=== PATIENT | male | born 1960 | race Caucasian/White ===

== ENCOUNTER 2019-11-12 11:19 | Inpatient (IN) | payer OTHER, SELFPAY ==
--- OUTSIDE RECORDS SUMMARY | 2019-11-12 11:21 | XMS REPORT ---
:1960 Author Organization [facility] t Address [address] [place] [address] [address]. [address] [place] [address] Care Team Providers Name Role Phone Unavailable Unavailable Unavailable Problems This patient has no known problems. Allergies, Adverse Reactions, Alerts This patient has no known allergies or adverse reactions. Medications This patient has no known medications.
[2019-11-12] MEDS ORDERED: HYDROCODONE/APAP 5/325 MG TAB ONE (13:34)
--- NOTE | 2019-11-12 13:56 | ER ---
Nurse's Notes [facility] Name: Clifton Sahu Jr Age: 59 yrs Sex: Male : 1960 Arrival Date: 11/12/2019 Time: 11:21 Bed 23 Private MD: Diagnosis: Cellulitis of left lower limb;Diabetes mellitus due to underlying condition with foot ulcer Presentation: 11/11 12:09 Chief complaint: Patient states: Left 4th toe infection x 1 week with severe pain. jl7 Coronavirus screen: Proceed with normal triage. Patient denies a cough. Patient denies shortness of breath or difficulty breathing. Patient denies measured and/or subjective temperature greater than 100.4F prior to today's visit. Patient denies travel on a cruise ship or to a country the [facility] currently lists as an affected area. Patient denies contact with known and/or suspected case of COVID-19. Ebola Screen: No symptoms or risks identified at this time. Initial Sepsis Screen: Does the patient meet any 2 criteria? HR > 90 bpm. Does the patient have a suspected source of infection? Yes: Skin breakdown/wound. Risk Assessment: Do you want to hurt yourself or someone else? Patient reports no desire to harm self or others. Onset of symptoms was November 06, 2019. Care prior to arrival: None. 12:09 Method Of Arrival: Ambulatory [facility] 12:09 Acuity: MOLLY 3 jl7 Triage Assessment: 12:13 General: Appears in no apparent distress. uncomfortable, Behavior is calm, cooperative, jl7 appropriate for age. Pain: Complains of pain in left foot Pain currently is 10 out of 10 on a pain scale. Neuro: Level of Consciousness is awake, alert, obeys commands, Oriented to person, place, time, situation. Cardiovascular: Patient's skin is warm and dry. Respiratory: Airway is patent Respiratory effort is even, unlabored, Respiratory pattern is regular, symmetrical. Derm: Skin is pink, warm \T\ dry. Wound noted left fourth toe Other: Toe is reddened and inflammed. Historical: - Allergies: 12:13 No Known Allergies; jl7 - Home Meds: 12:13 Metformin Oral [Active]; Lisinopril Oral [Active]; jl7 - PMHx: 12:13 Diabetes - NIDDM; Hypertension; jl7 - PSHx: 12:13 None; jl7 - Immunization history:: Adult Immunizations up to date. - Social history:: Smoking status: Patient reports the use of cigarette tobacco products, smokes one-half pack cigarettes per day. Screenin:10 Abuse screen: Denies threats or abuse. Denies injuries from another. Nutritional ls4 screening: No deficits noted. Fall Risk None identified. 13:10 Tuberculosis screening: No symptoms or risk factors identified. ls4 Assessment: 14:00 Reassessment: Patient appears in no apparent distress at this time. Patient and/or ls4 family updated on plan of care and expected duration. Pain level reassessed. Patient is alert, oriented x 3, equal unlabored respirations, skin warm/dry/pink. 14:05 General: Appears uncomfortable, obese, unkempt. ls4 14:05 Neuro: No deficits noted. Cardiovascular: No deficits noted. Reports. Respiratory: No ls4 deficits noted. Reports. GI: No deficits noted. No signs and/or symptoms were reported involving the gastrointestinal system. : No deficits noted. No signs and/or symptoms were reported regarding the genitourinary system. Derm: Wound noted left foot, left lateral ankle and lateral aspect of left foot Wound is RED, EDEMATOUS AND FOURTH TOE WITH OPEN ESCHAR ROOM. Musculoskeletal: Circulation, motion, and sensation intact. Capillary refill < 3 seconds, Range of motion: Swelling present in left foot and left fourth toe. 15:32 Reassessment: ATTEMPTED TO CALL REPORT. STATED THAT TJ WOULD CALL ME BACK. ls4 Vital Signs: 12:09 BP 154 / 91; Pulse 117; Resp 19; Temp 98.7(O); Pulse Ox 97% ; Weight 122.47 kg; Height jl7 5 ft. 11 in. (180.34 cm); Pain 10/10; 15:27 BP 125 / 82; Pulse 108; Resp 20; Temp 98.6(O); Pulse Ox 100% ; lt1 16:30 BP 126 / 77; Pulse 99; Resp 14; Pulse Ox 99% on R/A; Pain 3/10; ls4 12:09 Body Mass Index 37.66 (122.47 kg, 180.34 cm) jl7 ED Course: 11:21 Patient arrived in ED. ag5 12:12 Triage completed. jl7 12:13 Arm band placed on right wrist. Patient placed in waiting room, Patient notified of jl7 wait time. 13:20 Haw[facility]-C [facility] snw 13:20 Alvarez Dunn MD is Attending Physician. snw 13:26 Jenni Mcdaniels, GRETCHEN is Primary Nurse. ls4 13:55 Pepito Eddy DO is Hospitalizing Provider. snw 14:00 Patient has correct armband on for positive identification. Placed in gown. Bed in low ls4 position. Call light in reach. Side rails up X 1. 14:23 Foot Left 3 View XRAY In Process Unspecified. EDMS 14:23 Chest Single View XRAY In Process Unspecified. EDMS 14:42 US Extremity Venous Unilateral Ltd In Process Unspecified. EDMS 15:08 No provider procedures requiring assistance completed. Inserted saline lock: 18 gauge ls4 in right antecubital area, using aseptic technique. Blood collected. 15:55 Patient admitted, IV remains in place. ls4 Administered Medications: 13:28 Drug: Winnett 5 mg-325 mg 1 tabs Route: PO; ls4 15:53 Follow up: Response: No adverse reaction; Marked relief of symptoms ls4 14:52 Drug: Cefepime 1 grams Route: IVPB; Rate: 200 ml/hr; Infused Over: 30 mins; Site: right ls4 antecubital; 15:27 Follow up: Response: No adverse reaction; IV Status: Completed infusion; IV Intake: [id number] 15:06 Drug: NS 0.9% 1000 ml Route: IV; Rate: 125 ml/hr; Site: right antecubital; ls4 15:28 Follow up: IV Status: Infusion continued upon admission ls4 15:06 Drug: vancoMYCIN 1 grams Route: IVPB; Infused Over: 2 hrs; Site: right antecubital; ls4 15:28 Follow up: IV Status: Infusion continued upon admission; IV Intake: 275ml ls4 15:57 Follow up: Response: No adverse reaction; IV Status: Infusion continued upon admission; ls4 IV Intake: 250ml Intake: 15:27 IV: 10ml; Total: 10ml. ls4 15:57 IV: 250ml; Total: 260ml. ls4 Outcome: 13:56 Decision to Hospitalize by Provider. snw 15:54 Admitted to Med/surg accompanied by tech, via stretcher, room 210, Report called to TRUNG ls4 15:54 Condition: good 15:54 Instructed on the need for admit. 16:45 Patient left the ED. iw Signatures: Dispatcher [employer] EDHawa Garvin, NUCLEAR POWERPLANT SUPERVISOR-C NUCLEAR POWERPLANT SUPERVISOR-Csnw Sheeba Mariscal, RN RN iw Amy Emery RN RN jl7 Jenni Mcdaniels RN RN ls4 Bruce Montez 5 Yarely Lomax 1 Corrections: (The following items were deleted from the chart) 15:27 15:26 IV Status: Completed infusion; IV Intake: 10ml ls4 ls4 15:29 15:27 IV Status: Completed infusion; IV Intake: 275ml ls4 ls4 18:23 15:28 IV Status: Infusion continued upon admission; IV Intake: 275ml ls4 ls4
--- NOTE | 2019-11-12 13:57 | EDPHYS ---
Physician Documentation [facility] Name: Clifton Sahu Jr Age: 59 yrs Sex: Male : 1960 Arrival Date: 11/12/2019 Time: 11:21 Bed 23 Private MD: ED Physician Alvarez Dunn HPI: 11/11 14:04 This 59 yrs old Male presents to ER via Ambulatory with complaints of Toe snw Pain, Wound Infection. 14:04 Onset: The symptoms/episode began/occurred 1 week(s) ago, and became worse and became snw persistent. Associated signs and symptoms: Pertinent negatives: fever. 14:05 The patient presents with pain, that is acute, swelling, tenderness. The complaints snw affect the left foot. Severity of symptoms: At their worst the symptoms were moderate, severe. The patient has not experienced similar symptoms in the past. The patient has not recently seen a physician. Hx of HTN, High cholesterol, NIDDM. Historical: - Allergies: 12:13 No Known Allergies; jl7 - Home Meds: 12:13 Metformin Oral [Active]; Lisinopril Oral [Active]; jl7 - PMHx: 12:13 Diabetes - NIDDM; Hypertension; jl7 - PSHx: 12:13 None; jl7 - Immunization history:: Adult Immunizations up to date. - Social history:: Smoking status: Patient reports the use of cigarette tobacco products, smokes one-half pack cigarettes per day. ROS: 13:59 Constitutional: Negative for fever, chills, and weight loss, Eyes: Negative for injury, snw pain, redness, and discharge, ENT: Negative for injury, pain, and discharge, Neck: Negative for injury, pain, and swelling, Cardiovascular: Negative for chest pain, palpitations, and edema, Respiratory: Negative for shortness of breath, cough, wheezing, and pleuritic chest pain, Abdomen/GI: Negative for abdominal pain, nausea, vomiting, diarrhea, and constipation, Back: Negative for injury and pain, : Negative for injury, bleeding, discharge, and swelling, Neuro: Negative for headache, weakness, numbness, tingling, and seizure. 13:59 MS/extremity: Positive for erythema, pain, warmth, of the left fourth toe and left foot. 13:59 Skin: Positive for cellulitis, erythema, swelling. Exam: 13:51 Constitutional: This is a well developed, well nourished patient who is awake, alert, snw and in no acute distress. Eyes: Pupils equal round and reactive to light, extra-ocular motions intact. Lids and lashes normal. Conjunctiva and sclera are non-icteric and not injected. Cornea within normal limits. Periorbital areas with no swelling, redness, or edema. 13:51 ENT: Nares patent. No nasal discharge, no septal abnormalities noted. Tympanic membranes are normal and external auditory canals are clear. Oropharynx with no redness, swelling, or masses, exudates, or evidence of obstruction, uvula midline. Mucous membranes moist. Neck: Trachea midline, no thyromegaly or masses palpated, and no cervical lymphadenopathy. Supple, full range of motion without nuchal rigidity, or vertebral point tenderness. No Meningismus. Chest/axilla: Normal chest wall appearance and motion. Nontender with no deformity. No lesions are appreciated. 13:51 Abdomen/GI: Soft, non-tender, with normal bowel sounds. No distension or tympany. No guarding or rebound. No evidence of tenderness throughout. Back: No spinal tenderness. No costovertebral tenderness. Full range of motion. Neuro: Awake and alert, GCS 15, oriented to person, place, time, and situation. Cranial nerves II-XII grossly intact. Motor strength 5/5 in all extremities. Sensory grossly intact. Cerebellar exam normal. Normal gait. Psych: Awake, alert, with orientation to person, place and time. Behavior, mood, and affect are within normal limits. 13:51 Head/face: Noted is telangiectasia to cheeks. 13:51 Cardiovascular: Rate: tachycardic, Rhythm: regular. 13:51 Respiratory: the patient does not display signs of respiratory distress, Respirations: normal, Breath sounds: bronchial sounds, + upper airway congestion. smoker. 13:51 Skin: Appearance: normal except for affected area, cellulitis, that is severe, well demarcated, on the left foot and left fourth toe up to mid calf, 4th dorsal toe with ulceration with increased erythema and some skin peeling. Vital Signs: 12:09 BP 154 / 91; Pulse 117; Resp 19; Temp 98.7(O); Pulse Ox 97% ; Weight 122.47 kg; Height jl7 5 ft. 11 in. (180.34 cm); Pain 10/10; 15:27 BP 125 / 82; Pulse 108; Resp 20; Temp 98.6(O); Pulse Ox 100% ; lt1 16:30 BP 126 / 77; Pulse 99; Resp 14; Pulse Ox 99% on R/A; Pain 3/10; ls4 12:09 Body Mass Index 37.66 (122.47 kg, 180.34 cm) jl7 MDM: 13:24 Patient medically screened. snw 13:56 Data reviewed: vital signs, nurses notes. Data interpreted: Pulse oximetry: on room air snw is 97 %. Interpretation: normal. Counseling: I had a detailed discussion with the patient and/or guardian regarding: the historical points, exam findings, and any diagnostic results supporting the discharge/admit diagnosis, lab results, radiology results, the need for further work-up and treatment in the hospital. Physician consultation: Petey Michel MD was called at 13:57, was contacted at 13:57, regarding consult, in the emergency department to see patient at 13:57. 14:09 Physician consultation: Pepito Eddy DO was called at 14:10, regarding admission, to snw the medical/surgical unit. in the emergency department to see patient at 14:10. ED course: called Wound care for consult. Solution for wound is Dikins. 11/11 13:50 Order name: CBC with Diff; Complete Time: 16:23 snw 11/11 13:50 Order name: Chem 7; Complete Time: 15:01 snw 11/11 13:50 Order name: Troponin (emerg Dept Use Only); Complete Time: 15:01 snw 11/11 13:50 Order name: Blood Culture Adult (2) snw 11/11 13:50 Order name: Wound Culture snw 11/11 16:21 Order name: CBC Smear Scan; Complete Time: 16:23 EDMS 11/11 13:23 Order name: Foot Left 3 View XRAY; Complete Time: 14:36 snw 11/11 13:50 Order name: EKG; Complete Time: 13:50 snw 11/11 13:50 Order name: Chest Single View XRAY; Complete Time: 14:39 snw 11/11 13:58 Order name: US Extremity Venous Unilateral Ltd; Complete Time: 15:11 snw 11/11 13:50 Order name: Wound Care: Hibiclens and then Dagon's solution/wrap toe/ ice pack snw alternation Q 15min; Complete Time: 14:40 Administered Medications: 13:28 Drug: Durham 5 mg-325 mg 1 tabs Route: PO; ls4 15:53 Follow up: Response: No adverse reaction; Marked relief of symptoms ls4 14:52 Drug: Cefepime 1 grams Route: IVPB; Rate: 200 ml/hr; Infused Over: 30 mins; Site: right ls4 antecubital; 15:27 Follow up: Response: No adverse reaction; IV Status: Completed infusion; IV Intake: [id number] 15:06 Drug: NS 0.9% 1000 ml Route: IV; Rate: 125 ml/hr; Site: right antecubital; ls4 15:28 Follow up: IV Status: Infusion continued upon admission ls4 15:06 Drug: vancoMYCIN 1 grams Route: IVPB; Infused Over: 2 hrs; Site: right antecubital; ls4 15:28 Follow up: IV Status: Infusion continued upon admission; IV Intake: 275ml ls4 15:57 Follow up: Response: No adverse reaction; IV Status: Infusion continued upon admission; ls4 IV Intake: 250ml Disposition: 17:15 Co-signature as Attending Physician, Alvarez Dunn MD I agree with the assessment and kdr plan of care. Disposition: 11/12/19 13:56 Hospitalization ordered by Pepito Eddy for Inpatient Admission. Preliminary diagnosis are Cellulitis of left lower limb, Diabetes mellitus due to underlying condition with foot ulcer. - Bed requested for Telemetry/MedSurg (Inpatient). - Status is Inpatient Admission. iw - Condition is Stable. - Problem is new. - Symptoms are unchanged. Signatures: Dispatcher [employer] EDMS Alvarez Dunn MD MD kdr Hawa Rios, BOND UNDERWRITER-C BOND UNDERWRITER-Csnw Sheeba Mariscal RN RN iw Edilma Finley RN RN tl1 Amy Emery RN RN jl7 Jenni Mcdaniels RN RN ls4 Corrections: (The following items were deleted from the chart) 14:54 13:56 Hospitalization Ordered by Pepito Eddy DO for Inpatient Admission. Preliminary tl1 diagnosis is Cellulitis of left lower limb; Diabetes mellitus due to underlying condition with foot ulcer. Bed requested for Telemetry/MedSurg (Inpatient). Status is Inpatient Admission. Condition is Stable. Problem is new. Symptoms are unchanged. [facility] 16:45 14:54 11/12/2019 13:56 Hospitalization Ordered by Pepito Eddy DO for Inpatient iw Admission. Preliminary diagnosis is Cellulitis of left lower limb; Diabetes mellitus due to underlying condition with foot ulcer. Bed requested for Telemetry/MedSurg (Inpatient). Status is Inpatient Admission. Condition is Stable. Problem is new. Symptoms are unchanged. tl1
[2019-11-12 14:26] LABS: Absolute Lymphocytes (CBC) 0.9 K/uL (0.7-4.9); Basophils % 0.3 % (0-1.3); Hematocrit 44.9 % (39.6-49.0); MPV 8.8 fL (7.6-11.3); RBC Red Blood Cell Count 4.78 M/uL (4.33-5.43)
--- NOTE | 2019-11-12 14:31 | RAD REPORT ---
EXAM DESCRIPTION: RAD - Chest Single View - 11/12/2019 2:23 pm CLINICAL HISTORY: preop Chest pain. COMPARISON: No comparisons FINDINGS: Portable technique limits examination quality. The lungs are grossly clear. The heart is mildly enlarged in size. No displaced fractures.
--- NOTE | 2019-11-12 14:31 | RAD REPORT ---
EXAM DESCRIPTION: RAD - Foot Left 3 View - 11/12/2019 2:23 pm CLINICAL HISTORY: PAIN COMPARISON: No comparisons FINDINGS: There is significant soft tissue swelling along the dorsum of the forefoot. Subtle irregul arity of very distal aspect of the distal phalanx of the fourth toe could represent early osteomyelit is. No fracture seen.
[2019-11-12] MEDS ORDERED: VANCOMYCIN 1 GM/VIAL ONE (14:52)
[2019-11-12] MEDS ORDERED: NA CHLORIDE 0.9% 250 ML ONE (14:52)
[2019-11-12 14:59] LABS: BUN Blood Urea Nitrogen 16 mg/dL (7-18); Bicarbonate 26 mmol/L (21-32); Glucose Level 281 mg/dL (74-106); Potassium 4.3 mmol/L (3.5-5.1); Sodium Level 132 mmol/L (136-145); Troponin (Emerg Dept Use Only) 0.05 ng/mL (0.0-0.045)
[2019-11-12] MEDS ORDERED: NA CHLORIDE 0.9% 1,000 ML ONE (14:59)
--- NOTE | 2019-11-12 15:04 | RAD REPORT ---
EXAM DESCRIPTION: US - Extremity Venous Uni Ltd - 11/12/2019 2:39 pm CLINICAL HISTORY: Pain;Swelling Leg swelling and edema. COMPARISON: No comparisons FINDINGS: Left lower extremity venous system was interrogated with Doppler technique. Normal flow, c ompressibility and augmentation was noted. There is no DVT present. IMPRESSION: No evidence of left lower extremity deep venous thrombosis.
[2019-11-12] MEDS ORDERED: CEFEPIME/SWI 1gm 10 ML IVP ONE (15:30)
--- NOTE | 2019-11-12 15:56 | P.HP ---
Certification for Inpatient Patient admitted to: Inpatient With expected LOS: >2 Midnights Patient will require the following post-hospital care: None Practitioner: I am a practitioner with admitting privileges, knowledge of patient current condition, hospital course, and medical plan of care. Services: Services provided to patient in accordance with Admission requirements found in Title 42 Section 412.3 of the Code of Federal Regulations Patient History Date of Service: 11/12/19 Primary Care Provider: none Reason for admission: Left foot pain History of Present Illness: 59-year-old male with history of hypertension, hyperlipidemia, diabetes and CAD. Patient presented with left foot pain. Patient reports left foot pain over the past week. Erythema, swelling, and ulcer noted. He came to the ER for further evaluation. Patient denies any fever, chills. Patient denies any chest pain, shortness of breath. Patient with history of cellulitis in the past to the same foot. In the ER patient was evaluated. White count 13.4. Chest x-ray unremarkable. Venous Doppler negative. X-ray of foot shows significant soft swelling to the dorsum of the forefoot. Irregularity noted to the distal phalanx of the 4th toe likely representing early osteomyelitis. Patient admitted for further evaluation and treatment. When I saw the patient ER, he did not appear septic. Patient stable at this time. Antibiotics have been initiated. Patient seen by surgery. Home medications list reviewed: Yes - Past Medical/Surgical History Diabetic: Yes -: Diabetes mellitus type 2 -: Hypertension -: CAD -: Diabetic neuropathy -: Hyperlipidemia Past Surgical History: Unable to obtain Psychosocial/ Personal History: Patient lives at home - Family History Family History: Reviewed- Non-Contributory - Social History Smoking Status: Heavy Tobacco smoker (>10 cigarettes/day) Counseled patient to stop smoking for: less than 10 minutes Smoking therapy provided: Yes Patient receptive to therapy: Yes Alcohol use: No CD- Drugs: No Caffeine use: Yes Place of Residence: Home Review of Systems General: As per HPI Eyes: Unremarkable ENT: Unremarkable Respiratory: Unremarkable Cardiovascular: Unremarkable Gastrointestinal: Unremarkable Genitourinary: Unremarkable Musculoskeletal: As per HPI Integumentary: As per HPI Neurological: Unremarkable Lymphatics: Unremarkable Physical Examination - Physical Exam General: Alert, In no apparent distress, Oriented x3, Cooperative, Disheveled HEENT: Atraumatic, Normocephalic, Mucous membr. moist/pink Neck: Supple Respiratory: Clear to auscultation bilaterally, Normal air movement Cardiovascular: Normal pulses, Regular rate/rhythm Gastrointestinal: Normal bowel sounds, Soft and benign, Non-distended, No tende rness, No masses, No rebound, No guarding Musculoskeletal: Other (Left foot cellulitis with noted erythema, swelling and pain. Ulcer to the left 4th toe distally.) Neurological: Normal speech, Normal strength at 5/5 x4 extr, Normal tone, Normal affect - Studies Laboratory Data (last 24 hrs) 11/12/19 14:13: Sodium 132 L, Potassium 4.3, BUN 16, Creatinine 0.79, Glucose 281 H 11/12/19 14:13: WBC 13.4 H, Hgb 15.2, Hct 44.9, Plt Count 225 Assessment and Plan - Plan Impression: Left foot cellulitis with distal 4th ulcer suspect osteomyelitis Diabetes mellitus type 2 Hypertension Hyperlipidemia Diabetic neuropathy CAD Tobacco abuse Plan: Left foot cellulitis with distal 4th ulcer suspect osteomyelitis: Patient will be admitted for further evaluation and treatment. Will start IV vancomycin and cefepime. Surgery has seen the patient. Will keep the patient NPO after midnight as the patient may require debridement. Suspect osteomyelitis. Will consult Infectious Disease after surgical evaluation. Patient may require long- term IV antibiotic therapy. Will reassess tomorrow. Will provide medication for pain. Will provide DVT prophylaxis. Will evaluate for underlying peripheral vascular disease. Diabetes mellitus type 2: Will provide Accu-Cheks. Will continue with sliding scale. Will need to check A1c. Hypertension: Will need to obtain and restart home medication. Hyperlipidemia: Will need to obtain and restart home medication. Diabetic neuropathy: Will need to obtain and restart home medication. CAD: Will need to obtain and restart home medication. Tobacco abuse: Will provide nicotine patch Discharge Plan: Home Plan to discharge in: Greater than 2 days - Advance Directives Does patient have a Living Will: No Does patient have a Durable POA for Healthcare: No - Code Status/Comfort Care Code Status Assessed: Yes (Patient is full code) Time Spent Managing Pts Care (In Minutes): 55
[2019-11-12 16:21] LABS: Blood Morphology Comment NOT SEEN (NOT SEEN); Platelet Estimate ADEQ; Urine White Blood Cell Casts OK
[2019-11-12] MEDS ORDERED: ONDANSETRON 4 MG/2 ML VIAL IV PRN (16:54)
[2019-11-12] MEDS ORDERED: ACETAMINOPHEN 500 MG TAB PO PRN (16:54)
[2019-11-12] MEDS ORDERED: ALBUTEROL INHALER 60 PUFF/8 GM IH PRN (16:54)
[2019-11-12 17:06] VITALS: BMI 37.6
[2019-11-12] MEDS: INSULIN -REGULAR HUMAN 50 UNIT/0.5 ML ML SQ SCH ×2 (17:40→21:23)
[2019-11-12] MEDS: TRAMADOL HCL 50 MG TAB PO PRN (17:41)
[2019-11-12] MEDS: ENOXAPARIN 40 MG/0.4 ML SQ SCH (17:41)
[2019-11-12] MEDS: NICOTINE 21 MG/PAT TD SCH (17:41)
[2019-11-12] MEDS: VANCOMYCIN 2 GM in NA CHLORIDE 0.9% 500 ML IVPB SCH (18:18)
--- NOTE | 2019-11-12 19:34 | CON ---
Date of Consultation: 11/12/2019 Reason For Consultation: Foot wound. Brief History Of Present Illness: Patient is a 59-year-old male who states he has diabetes and hyper tension, who kicked an object a few days ago and noted redness of his left foot with swelling. He no kadi that the redness continued to spread beginning approximately the second toe of his left foot and went up to his mid foot at that point, associated with some tenderness, but he does state he has neur opathy and has decreased sensation in this area. However, he noted that the area was getting more sw ollen and as such, he came to the emergency room with the above-stated complaints. He has no primary care doctor and is noncompliant with most of his medications with respect to blood sugar control bec ause he states he is uninsured and as such, cannot afford some of his medications. Past Medical History: Significant for diabetes, hypertension. Allergies: NO KNOWN DRUG ALLERGIES. Home Medications: Include metformin and lisinopril. Past Surgical History: He denies any surgeries in the past. Social History: He smokes cigarettes. He drinks alcohol. He denies recreational drug use. Physical Examination: General: At the time of my examination, he is awake, alert, oriented. Psychiatric: He is appropriate conversive. HEENT: Normocephalic. His sclerae are anicteric. His mucous membranes are moist. His oropharynx i s clear. Chest: Normal expansion excursion. Extremities: Focused examination of the left lower extremity, he has swelling and tenderness of the second toe with a small wound with purulence on the distal phalanx near the nail bed, proximal to the nail bed. The swelling and cellulitis extends on the dorsal foot up to the mid foot area, predomina ntly it is swollen. There are no drainable collections evident. Laboratory Data: He had laboratory examination, which reveals a white blood count 13.4, hemoglobin i s 15.2, hematocrit of 44.9, platelet count is 225, neutrophils are 86%. His sodium 132, potassium 4. 3, chloride 100, carbon dioxide 26, BUN 16, creatinine 0.7, his glucose is 281. His rapid troponin l ess than 0.05. He had imaging performed which included a foot x-ray, which was officially read as si gnificant soft tissue swelling along the dorsal forefoot. Subtle irregularity of the very distal asp ect of the distal phalanx of the second toe could represent early osteomyelitis. No fracture or disl ocation seen. Assessment And Plan: This is a 59-year-old male who comes in with a soft tissue infection, celluliti s, possibly early osteomyelitis of the left foot second toe. 1.IV fluid hydration. 2.Antibiotic coverage. 3.Serial exams and local wound care to see if we can treat this with nonoperative management, mari harris, nonoperative management fails, I have explained he would likely need amputation of this affected t oe and I explained the risks, benefits, alternatives of the above stated plan. The patient agrees to proceed as indicated. TEE/JOANA Voice ID: [id number] Report ID: [id number]
[2019-11-12] MEDS: ATORVASTATIN 40 MG TAB PO SCH (19:54)
[2019-11-12] MEDS: HYDROCODONE/APAP 7.5/325 MG TAB PO PRN (19:54)
[2019-11-12] MEDS: CEFEPIME/SWI 1gm 1 ML IVP SCH (20:06)
[2019-11-12] MEDS: DULERA 100/5 (MOMETASONE/FORMOTEROL) INHALER IH SCH (21:00)
[2019-11-12] MEDS ORDERED: CEFEPIME 1 GM/VIAL IV SCH (21:00)
[2019-11-12 21:30] LABS: Urine Appearance CLEAR; Urine Bilirubin NEGATIVE (NEG); Urine Blood NEGATIVE (NEG); Urine Color DK YELLOW; Urine Glucose 3+ (NEG); Urine Protein 1+ (NEG); Urine Specific Gravity >=1.030 (1.005-1.030); Urine pH 5.5 (5.0-7.0)
[2019-11-12 21:38] LABS: Urine Microscopic Reflex ORDER UMIC
[2019-11-12 21:46] LABS: Urine Bacteria <20 /HPF (NONE SEEN); Urine Culture Reflex Order NOT NEEDED; Urine Mucus 1+ /HPF (NONE SEEN); Urine RBC <5 /HPF (NONE SEEN)
[2019-11-13] MEDS: VANCOMYCIN 2 GM in NA CHLORIDE 0.9% 500 ML IVPB SCH ×2 (05:13→17:39)
[2019-11-13 05:18] LABS: Absolute Lymphocytes (CBC) 0.7 K/uL (0.7-4.9); Basophils % 0.7 % (0-1.3); Hematocrit 43.2 % (39.6-49.0); MPV 9.1 fL (7.6-11.3); RBC Red Blood Cell Count 4.49 M/uL (4.33-5.43)
[2019-11-13 05:41] LABS: BUN Blood Urea Nitrogen 14 mg/dL (7-18); Bicarbonate 24 mmol/L (21-32); Glucose Level 269 mg/dL (74-106); HDL Cholesterol 30 mg/dL (40-60); LDL Cholesterol, Calculated 108 (<130); Magnesium 1.8 mg/dL (1.8-2.4); Potassium 4.4 mmol/L (3.5-5.1); Sodium Level 132 mmol/L (136-145); Thyroid Stimulating Hormone 0.872 uIU/mL (0.360-3.740)
[2019-11-13] MEDS ORDERED: MAGNESIUM SULFATE 1 gm IVPB 1 GM/100 ML BAG IV ONE (05:47)
[2019-11-13] MEDS: ENOXAPARIN 40 MG/0.4 ML SQ SCH (08:35)
[2019-11-13] MEDS: NICOTINE 21 MG/PAT TD SCH (08:35)
[2019-11-13] MEDS: ASPIRIN EC 81 MG TAB PO SCH (08:35)
[2019-11-13] MEDS: CEFEPIME/SWI 1gm 1 ML IVP SCH ×2 (08:35→22:31)
[2019-11-13] MEDS: INSULIN -REGULAR HUMAN 50 UNIT/0.5 ML ML SQ SCH ×4 (08:44→22:32)
--- NOTE | 2019-11-13 08:51 | RAD REPORT ---
EXAM DESCRIPTION: US - Upper Lower [facility] - 11/13/2019 8:34 am CLINICAL HISTORY: Leg pain/peripheral vascular disease, foot wound COMPARISON: None FINDINGS: Waveforms of the right common femoral, right superficial femoral artery biphasic Right popliteal, right dorsalis pedis, right posterior tibial arterial waveform monophasic Waveforms of the left common femoral, left superficial femoral artery is biphasic Left popliteal, left dorsalis pedis, left posterior tibial arterial waveforms monophasic Right ankle brachial index 0.75, left ankle brachial index 0.74 Right toe index 0.8, left toe index 0.3 IMPRESSION: High-grade stenosis involving the proximal/mid arteries lower extremities bilaterally no t noted Mildly diminished ankle-brachial indices Moderate distal disease involving the arteries bilaterally left greater than right
[2019-11-13] MEDS: DULERA 100/5 (MOMETASONE/FORMOTEROL) INHALER IH SCH ×2 (09:00→21:00)
--- NOTE | 2019-11-13 11:05 | P.PN ---
Subjective Date of Service: 11/13/19 Primary Care Provider: none Chief Complaint: Left foot pain Subjective: No new changes, Doing well Patient reports pain persist to left foot. Denies any new or worsening symptoms. <Brandon Tubbs - Last Filed: 11/13/19 11:09> Date of Service: 11/13/19 Subjective: Other (patient seen and evaluated with nurse practitioner.) <Pepito Eddy - Last Filed: 11/13/19 17:15> Review of Systems General: Unremarkable Eyes: Unremarkable ENT: Unremarkable Respiratory: Unremarkable Cardiovascular: Unremarkable Gastrointestinal: Unremarkable Genitourinary: Unremarkable Musculoskeletal: Unremarkable Integumentary: Rash (Cellulitis left lower extremity.) Neurological: Unremarkable Lymphatics: Unremarkable <Brandon Tubbs Last Filed: 11/13/19 11:09> Physical Examination - Vital Signs Temperature: 98.8 F Blood Pressure: 136/84 Pulse: 109 Respirations: 28 Pulse Ox (%): 95 - Physical Exam General: Alert, In no apparent distress HEENT: Atraumatic, Normocephalic Neck: Supple Respiratory: Clear to auscultation bilaterally, Normal air movement Cardiovascular: Normal S1 S2 Capillary refill: <2 Seconds Gastrointestinal: Normal bowel sounds Integumentary: Erythema, Warmth (Left lower extremity) Neurological: Normal speech - Studies Laboratory Data (last 24 hrs) 11/12/19 14:13: Sodium 132 L, Potassium 4.3, BUN 16, Creatinine 0.79, Glucose 281 H 11/12/19 14:13: WBC 13.4 H, Hgb 15.2, Hct 44.9, Plt Count 225 <Brandon Tubbs - Last Filed: 11/13/19 11:09> - Physical Exam Other Physical/Emotional Findings: Patient examined with nurse practitioner. Agree with findings. - Studies Microbiology Data (last 24 hrs): 11/12/19 14:21 Wound - Left Toe Gram Stain - Final <Pepito Eddy - Last Filed: 11/13/19 17:15> Assessment & Plan Discharge Plan: Home Plan to discharge in: 24 Hours Physician Review Additional Text: Impression: Left foot cellulitis with distal 4th ulcer suspect osteomyelitis Diabetes mellitus type 2 Hypertension Hyperlipidemia Diabetic neuropathy CAD Tobacco abuse Plan: Left foot cellulitis with distal 4th ulcer suspect osteomyelitis: X-ray of left foot shows possible osteomyelitis. Will obtain MRI to help determine if osteomyelitis is definitively present in the left lower extremity. Surgery consulted on the case and saw the patient, would like to try antibiotics in attempt to save the toes. If MRI shows osteomyelitis patient will require long- term IV antibiotic therapy with likely PICC line placement. The patient does not have insurance resource at this time and will need to have IV therapy arrange through the hospital. Case discussed extensively with surgery, will speak with them again after the results of the MRI are obtained. Anticipate patient to be discharged tomorrow once it is determined if the patient does indeed have osteomyelitis. Diabetes mellitus type 2: Will continue to provide Accu-Cheks. Will continue with sliding scale. Patient A1c is 10. Will review and adjust home medications as appropriate. Hypertension: Will obtain and restart Home medications Hyperlipidemia: Will obtain and restart home medication. Diabetic neuropathy: Will obtain and restart home medication. CAD: Will obtain and restart home medication. Tobacco abuse: Will provide nicotine patch Time Spent Managing Pts Care (In Minutes): 55 <Brandon Tubbs - Last Filed: 11/13/19 11:09> Discharge Plan: Home Plan to discharge in: Greater than 2 days Physician Review Additional Text: Patient seen, examined with nurse practitioner. Agree with plan of care. Case discussed with surgery. Await MRI findings. Surgery recommends cardiology evaluation for peripheral vascular disease. Will consult cardiology for evaluation. Patient may require long-term IV antibiotic therapy verses oral. Will also consult Infectious Disease. Will review and restart home medication. Await recommendations by Cardiology. <Pepito Eddy - Last Filed: 11/13/19 17:15>
--- NOTE | 2019-11-13 13:01 | EKG ---
Test Date: 2019-11-12 Test Time: 16:32:48 [employer]: ELOISAT MEASUREMENT RESULTS: Intervals: Rate: 106 HI: 122 QRSD: 84 QT: 340 QTc: 451 [place]: P: 65 HI: 122 QRS: 57 T: 105 INTERPRETIVE STATEMENTS: Sinus tachycardia Possible Left atrial enlargement Low voltage QRS Septal infarct, age undetermined Abnormal ECG No previous ECG available for comparison Electronically Signed On 11-13-19 12:58:29 CDT by Rufus Redd
--- NOTE | 2019-11-13 13:40 | ECHO ---
HEIGHT: 5 ft 11 in WEIGHT: 270 lb 0 oz DATE OF STUDY: 11/13/[address]: Pepito Eddy DO 2-DIMENSIONAL: YES M.MODE: YES DOPPLER: YES COLOR FLOW: YES TDS: YES PORTABLE: NO DEFINITY: NO BUBBLE STUDY: NO DIAGNOSIS: CORONARY ARTERY DISEASE CARDIAC HISTORY: CATHERIZATION: NO SURGERY: NO PROSTHETIC VALVE: NO PACEMAKER: NO MEASUREMENTS (cm) DIASTOLIC (NORMALS) SYSTOLIC (NORMALS) IVSd 1.2 (0.6-1.2) LA Diam 4.1 (1.9-4.0) LVEF 44% LVIDd 4.6 (3.5-5.7) LVIDs 3.6 (2.0-3.5) %FS 22% LVPWd 1.2 (0.6-1.2) Ao Diam 2.7 (2.0-3.7) 2 DIMENSIONAL ASSESSMENT: RIGHT ATRIUM: NORMAL LEFT ATRIUM: NORMAL RIGHT VENTRICLE: NORMAL LEFT VENTRICLE: NORMAL TRICUSPID VALVE: NORMAL MITRAL VALVE: NORMAL PULMONIC VALVE: NORMAL AORTIC VALVE: NORMAL PERICARDIAL EFFUSION: NONE AORTIC ROOT: NORMAL LEFT VENTRICULAR WALL MOTION: MILD GLOBAL HYPOKINESIS. DOPPLER/COLOR FLOW: NORMAL COMMENTS: MILD GLOBAL HYPOKINESIS. LEFT VENTRICULAR EJECTION FRACTION 44%. NO EFFUSION. TECHNOLOGIST: Magalie FONTANA
--- NOTE | 2019-11-13 14:58 | P.CNS ---
Date of Consult: 11/13/19 Subjective: Patient is a 59-year-old male who presents with left foot pain. Over the past week patient noticed erythema, swelling, and ulcer. Patient reports new pair of hiking shoes. X-ray of left foot shows significant soft tissue swelling to the dorsum of the forefoot and possible osteomyelitis to the distal phalanx of the 4th toe which I have been consulted for. PMH/Surgical: Diabetes mellitus type 2, hypertension, CAD, diabetic neuropathy, hyperlipidemia Family history: Noncontributory Social history: Current every day smoker half PPD x 40 years. Stopped drinking alcohol July 2019 Allergies: NKDA Active Medications Acetaminophen (Tylenol -Extra Strength) 500 mg PO Q4HP PRN PRN Reason: TEMP > 101' F Stop: 12/12/19 16:55 Hydrocodone Bitart/Acetaminophen ([place] 7.5/325 Mg) 1 tab PO Q6H PRN PRN Reason: Pain scale 5-7 (Moderate) Stop: 12/12/19 16:55 Last Admin: 11/12/19 19:54 Dose: 1 tab Documented by: Albuterol Sulfate (Ventolin Inhaler) 2 puff IH Q6H PRN PRN Reason: SHORTNESS OF BREATH Stop: 12/12/19 16:55 Aspirin (Aspirin Ec) 81 mg PO DAILY [facility] Stop: 12/13/19 09:01 Last Admin: 11/13/19 08:35 Dose: 81 mg Documented by: Atorvastatin Calcium (Lipitor) 40 mg PO BEDTIME [facility] Stop: 12/12/19 21:01 Last Admin: 11/12/19 19:54 Dose: 40 mg Documented by: Enoxaparin Sodium (Lovenox 40 Mg Inj) 40 mg SQ DAILY [facility] Stop: 12/12/19 18:01 Last Admin: 11/13/19 08:35 Dose: 40 mg Documented by: Vancomycin HCl 2 gm/ Sodium (Chloride) 500 mls @ 250 mls/hr IVPB Q12H [facility]; Protocol Stop: 12/12/19 18:01 Last Admin: 11/13/19 05:13 Dose: 500 mls Documented by: Cefepime HCl (Maxipime 1 Gm/10 Ml Ivp) 1 mls @ 20 mls/hr IVP Q12HR [facility] Stop: 12/12/19 21:01 Last Admin: 11/13/19 08:35 Dose: 1 mls Documented by: Insulin Human Regular (Novolin -R) 0 unit SQ ACHS [facility]; Protocol Stop: 12/12/19 16:55 Last Admin: 11/13/19 11:19 Dose: 8 unit Documented by: Nicotine (Nicoderm) 21 mg TD DAILY [facility] Stop: 12/12/19 18:01 Last Admin: 11/13/19 08:35 Dose: 21 mg Documented by: Ondansetron HCl (Zofran) 4 mg IV Q6HP PRN PRN Reason: NAUSEA / VOMITING Stop: 12/12/19 16:55 Sodium Chloride (Normal Saline Flush) 10 ml IV BID [facility] Stop: 12/12/19 21:01 Last Admin: 11/13/19 08:37 Dose: 10 ml Documented by: Tramadol HCl (Ultram) 50 mg PO TID PRN PRN Reason: Pain scale 2-4 (Mild) Stop: 12/12/19 16:55 Last Admin: 11/12/19 17:41 Dose: 50 mg Documented by: ROS: CV: Denies chest pain RESP: Denies shortness of breath, cough : Denies pain/difficulty urinating GI: Denies nausea, vomiting, diarrhea Extremities: Reports redness, swelling, and pain to the left lower extremity worsening the last week Objective: Temp Pulse Resp BP Pulse Ox 98.6 F 118 H 28 H 144/79 H 97 11/13/19 12:00 11/13/19 12:00 11/13/19 12:00 11/13/19 12:00 11/13/19 12:00 Laboratory Last Values WBC 13.4 K/uL (4.3-10.9) H 11/12/19 14:13 RBC 4.78 M/uL (4.33-5.43) 11/12/19 14:13 Hgb 15.2 g/dL (13.6-17.9) 11/12/19 14:13 Hct 44.9 % (39.6-49.0) 11/12/19 14:13 MCV 93.9 fL (80-100) 11/12/19 14:13 MCH 31.8 pg (27.0-35.0) 11/12/19 14:13 MCHC 33.8 g/dL (32.0-36.0) 11/12/19 14:13 RDW 14.1 % (12.1-15.2) 11/12/19 14:13 Plt Count 225 K/uL (152-406) 11/12/19 14:13 MPV 8.8 fL (7.6-11.3) 11/12/19 14:13 Neutrophils % 85.6 % (41.7-73.7) H 11/12/19 14:13 Lymphocytes % 7.0 % (15.3-44.8) L 11/12/19 14:13 Monocytes % 6.9 % (3.3-12.3) 11/12/19 14:13 Eosinophils % 0.2 % (0-4.4) 11/12/19 14:13 Basophils % 0.3 % (0-1.3) 11/12/19 14:13 Absolute Neutrophils 11.5 K/uL (1.8-8.0) H 11/12/19 14:13 Absolute Lymphocytes 0.9 K/uL (0.7-4.9) 11/12/19 14:13 Absolute Monocytes 0.9 K/uL (0.1-1.3) 11/12/19 14:13 Absolute Eosinophils 0.0 K/uL (0-0.5) 11/12/19 14:13 Absolute Basophils 0.0 K/uL (0-0.5) 11/12/19 14:13 Morphology Comment Not seen (NOT SEEN) 11/12/19 14:13 Sodium 132 mmol/L (136-145) L 11/12/19 14:13 Potassium 4.3 mmol/L (3.5-5.1) 11/12/19 14:13 Chloride 100 mmol/L (98-107) 11/12/19 14:13 Carbon Dioxide 26 mmol/L (21-32) 11/12/19 14:13 BUN 16 mg/dL (7-18) 11/12/19 14:13 Creatinine 0.79 mg/dL (0.55-1.3) 11/12/19 14:13 Estimated GFR > 90 mL/min (=/>90) 11/12/19 14:13 Glucose 281 mg/dL (74-106) H 11/12/19 14:13 Calcium 9.3 mg/dL (8.5-10.1) 11/12/19 14:13 Rapid Troponin I 0.05 ng/mL (0.0-0.045) H 11/12/19 14:13 Foot Xray 11/11: EXAM DESCRIPTION: RAD - Foot Left 3 View - 11/12/2019 2:23 pm CLINICAL HISTORY: PAIN COMPARISON: No comparisons FINDINGS: There is significant soft tissue swelling along the dorsum of the forefoot. Subtle irregularity of very distal aspect of the distal phalanx of the fourth toe could represent early osteomyelitis. No fracture seen. ROS: General: Awake, alert, sitting upright in bed CV: S1, S2 RESP: clear to auscultation ABD: Lito, nontender, normoactive bowel sounds Extremities: Swelling to left lower extremity Skin: Erythema, warmth, swelling to left lower extremity. Left 4th digit with ulceration, Small amount of drainage with blood and puss Assessment and plan: Left lower extremity swelling, doppler negative for DVT Cellulitis LLE, Continue Vancomycin and Cefepime Possible osteomyelitis, MRI to confirm Leukocytosis Wound culture 5/6 positive for gram positive cocci in pairs and chains Blood cultures 5/6 negative Diabetes, monitor glycemic control Will continue to monitor Thank you for consult Patient discussed with Dr. love
--- NOTE | 2019-11-13 17:35 | RAD REPORT ---
EXAM DESCRIPTION: MRI - Foot Right Wo Cont - 11/13/2019 4:05 pm CLINICAL HISTORY: left foot cellulitis rule out osteomyelitis COMPARISON: Foot Left 3 View dated 11/12/2019 TECHNIQUE: Multiplanar imaging of the left foot performed using T1 weighted, T1 fat saturation, T2 f at saturation and T2 STIR sequencing FINDINGS: Hyperintense T1 and hypointense T2/T2 fat saturation sequencing noted in the fourth and fi fth phalanges. Specifically, the fourth distal phalanx shows normal MR marrow signal characteristics. No cortical disruption. Elsewhere no suspicious marrow signal pattern. No destructive or acute bone process seen. Soft tissue edema changes are present. No abscess or drainable fluid collection. IMPRESSION: No osteomyelitis findings. No acute or destructive bone process. Soft tissue edema changes without abscess or drainable fluid collection.
[2019-11-13] MEDS: MUPIROCIN 2% OINT 22GM TUBE TOP SCH (21:00)
[2019-11-13] MEDS: HYDROCODONE/APAP 7.5/325 MG TAB PO PRN (22:31)
[2019-11-13] MEDS: ATORVASTATIN 40 MG TAB PO SCH (22:31)
[2019-11-14] MEDS: TRAMADOL HCL 50 MG TAB PO PRN (02:24)
[2019-11-14 05:09] LABS: Absolute Lymphocytes (CBC) 1.3 K/uL (0.7-4.9); Basophils % 0.8 % (0-1.3); Hematocrit 39.7 % (39.6-49.0); Lymphocytes % 11.7 % (15.3-44.8); MPV 8.9 fL (7.6-11.3)
[2019-11-14 05:26] LABS: BUN Blood Urea Nitrogen 13 mg/dL (7-18); Bicarbonate 24 mmol/L (21-32); Glucose Level 269 mg/dL (74-106); Sodium Level 134 mmol/L (136-145)
[2019-11-14] MEDS: VANCOMYCIN 2 GM in NA CHLORIDE 0.9% 500 ML IVPB SCH (05:35)
[2019-11-14] MEDS: HYDROCODONE/APAP 7.5/325 MG TAB PO PRN ×3 (05:37→21:46)
[2019-11-14] MEDS: INSULIN -REGULAR HUMAN 50 UNIT/0.5 ML ML SQ SCH ×4 (08:38→21:46)
[2019-11-14] MEDS: ENOXAPARIN 40 MG/0.4 ML SQ SCH (08:38)
[2019-11-14] MEDS: ASPIRIN EC 81 MG TAB PO SCH (08:38)
[2019-11-14] MEDS: CEFEPIME/SWI 1gm 1 ML IVP SCH ×2 (08:38→21:45)
[2019-11-14] MEDS: MUPIROCIN 2% OINT 22GM TUBE TOP SCH ×2 (08:39→21:48)
[2019-11-14] MEDS: DULERA 100/5 (MOMETASONE/FORMOTEROL) INHALER IH SCH ×2 (08:39→21:00)
[2019-11-14] MEDS: NICOTINE 21 MG/PAT TD SCH (08:40)
[2019-11-14] MEDS: SODIUM HYPOCHLORITE 0.5% 473 ML TOP SCH ×2 (08:41→21:48)
--- NOTE | 2019-11-14 15:06 | P.PN ---
Date of Service: 11/14/19 Subjective: Patient is a 59-year-old male who presents with left foot pain. Over the past week patient noticed erythema, swelling, and ulcer. Patient reports new pair of hiking shoes. Patient examined at bedside. Denies nausea, vomiting, diarrhea, fevers, shortness of breath and pain/difficulty urinating. Objective: Temp Pulse Resp BP Pulse Ox 97.2 F 107 H 16 115/67 95 11/14/19 12:00 11/14/19 12:00 11/14/19 12:00 11/14/19 12:00 11/14/19 12:00 Labs: Na 134, K 4.0, Glucose 269, WBC 10.8, PLT 181 Foot Xray 11/11: EXAM DESCRIPTION: RAD - Foot Left 3 View - 11/12/2019 2:23 pm CLINICAL HISTORY: PAIN COMPARISON: No comparisons FINDINGS: There is significant soft tissue swelling along the dorsum of the forefoot. Subtle irregularity of very distal aspect of the distal phalanx of the fourth toe could represent early osteomyelitis. No fracture seen. MRI Foot 11/12: EXAM DESCRIPTION: MRI - Foot Right Wo Cont - 11/13/2019 4:05 pm CLINICAL HISTORY: left foot cellulitis rule out osteomyelitis COMPARISON: Foot Left 3 View dated 11/12/2019 TECHNIQUE: Multiplanar imaging of the left foot performed using T1 weighted, T1 fat saturation, T2 fat saturation and T2 STIR sequencing FINDINGS: Hyperintense T1 and hypointense T2/T2 fat saturation sequencing noted in the fourth and fifth phalanges. Specifically, the fourth distal phalanx shows normal MR marrow signal characteristics. No cortical disruption. Elsewhere no suspicious marrow signal pattern. No destructive or acute bone process seen. Soft tissue edema changes are present. No abscess or drainable fluid collection. IMPRESSION: No osteomyelitis findings. No acute or destructive bone process. Soft tissue edema changes without abscess or drainable fluid collection. ROS: General: Awake, alert, sitting upright in bed, left leg dangling off bed CV: S1, S2 RESP: clear to auscultation ABD: Lito, nontender, normoactive bowel sounds Extremities: Swelling to left lower extremity Skin: Erythema, warmth, swelling to left lower extremity. Left 4th digit with ulceration, Small amount of drainage with blood and puss Assessment and plan: Left lower extremity swelling, doppler negative for DVT Cellulitis LLE MRI shows no osteomyelitis or destructive bone Leukocytosis improved Wound culture 5/6 positive for gram positive cocci in pairs and chains Blood cultures 5/6 negative Diabetes, monitor glycemic control Recommend Bactrim DS PO BID x2 weeks Will continue to monitor Patient discussed with Dr. love
--- NOTE | 2019-11-14 15:37 | P.PN ---
Subjective Date of Service: 11/14/19 Primary Care Provider: none Chief Complaint: Left foot pain Subjective: Other (LEFT foot appears to be draining more, continues to be red) Physical Examination - Vital Signs Temperature: 97.2 F Blood Pressure: 115/67 Pulse: 107 Respirations: 16 Pulse Ox (%): 95 - Physical Exam General: Alert, In no apparent distress, Cooperative Integumentary: Erythema, Warmth, Other (pus draining) Neurological: Normal speech Other Physical/Emotional Findings: Patient examined with nurse practitioner. Agree with findings. - Studies Microbiology Data (last 24 hrs): 11/12/19 14:21 Wound - Left Toe Gram Stain - Final Assessment And Plan - Current Problems (Diagnosis) (1) Abscess of left foot including toes Current Visit: Yes Status: Acute Plan: - continue IV antibiotics - I have explained the risks, benefits, and alterantives to incision and drainage of LEFT foot abscess, will proceed with surgery in AM - continue wound care Physician Review Additional Text: Patient seen, examined with nurse practitioner. Agree with plan of care. Case discussed with surgery. Await MRI findings. Surgery recommends cardiology evaluation for peripheral vascular disease. Will consult cardiology for evaluation. Patient may require long-term IV antibiotic therapy verses oral. Will also consult Infectious Disease. Will review and restart home medication. Await recommendations by Cardiology.
[2019-11-14] MEDS: VANCOMYCIN 2.25 GM in NA CHLORIDE 0.9% 500 ML IVPB SCH (17:27)
--- NOTE | 2019-11-14 18:14 | P.PN ---
Subjective Date of Service: 11/14/19 Primary Care Provider: none Chief Complaint: Left foot pain Subjective: Doing well Physical Examination - Vital Signs Temperature: 98.3 F Blood Pressure: 121/64 Pulse: 105 Respirations: 16 Pulse Ox (%): 96 - Physical Exam General: Alert, Cooperative HEENT: Atraumatic Neck: Supple Respiratory: Clear to auscultation bilaterally, Normal air movement Cardiovascular: Normal pulses, Regular rate/rhythm Integumentary: Other (Still with edema to the foot. Slightly improved still with pain.) Other Physical/Emotional Findings: Patient examined with nurse practitioner. Agree with findings. - Studies Microbiology Data (last 24 hrs): 11/12/19 14:21 Wound - Left Toe Gram Stain - Final Medications List Reviewed: Yes Assessment & Plan Discharge Plan: Home Plan to discharge in: Greater than 2 days Physician Review Additional Text: Impression: Left foot cellulitis with distal 4th ulcer suspect osteomyelitis Diabetes mellitus type 2 Hypertension Hyperlipidemia Diabetic neuropathy CAD Tobacco abuse Plan: Left foot cellulitis with distal 4th ulcer suspect osteomyelitis: MRI negative for osteomyelitis. Case discussed with surgery. Surgery plans take the patient to the OR tomorrow to debride. Will continue IV antibiotic therapy. Case also discuss with cardiology. Cardiology may do angiogram on Sunday or Sunday if the patient is still present. Await further recommendations from Infectious Disease. Anticipate discharge likely early next week. Diabetes mellitus type 2: Will continue to provide Accu-Cheks. Will continue with sliding scale. Patient A1c is 10. Will continue to review and adjust home medications as appropriate. Hypertension: Continue Home medications Hyperlipidemia: Continue home medication. Diabetic neuropathy: Continue home medication. CAD: Continue medication Tobacco abuse: Will provide nicotine patch Time Spent Managing Pts Care (In Minutes): 55
[2019-11-14] MEDS: ATORVASTATIN 40 MG TAB PO SCH (21:46)
[2019-11-15] MEDS: TRAMADOL HCL 50 MG TAB PO PRN ×2 (01:33→13:40)
[2019-11-15 04:51] LABS: BUN Blood Urea Nitrogen 12 mg/dL (7-18); Bicarbonate 23 mmol/L (21-32); Glucose Level 233 mg/dL (74-106); Magnesium 1.8 mg/dL (1.8-2.4); Potassium 3.9 mmol/L (3.5-5.1); Sodium Level 132 mmol/L (136-145)
[2019-11-15 04:53] LABS: Absolute Lymphocytes (CBC) 1.6 K/uL (0.7-4.9); Basophils % 0.9 % (0-1.3); Hematocrit 40.2 % (39.6-49.0); Lymphocytes % 14.7 % (15.3-44.8); MPV 9.1 fL (7.6-11.3); RBC Red Blood Cell Count 4.27 M/uL (4.33-5.43)
[2019-11-15] MEDS ORDERED: MAGNESIUM SULFATE 1 gm IVPB 1 GM/100 ML BAG IV ONE (05:11)
[2019-11-15] MEDS: VANCOMYCIN 2.25 GM in NA CHLORIDE 0.9% 500 ML IVPB SCH ×2 (05:42→18:15)
--- NOTE | 2019-11-15 06:19 | CON ---
Date of Consultation: 11/14/2019 Patient was admitted on 11/12/[address] Eddy. I saw the patient on 11/14/2019. Reason For Consultation: Peripheral arterial disease. History Of Present Illness: Mr. Sahu is a 59-year-old white male. He was admitted with diabetes. He has left foot cellulitis, but no osteomyelitis. He is being treated with antibiotics right now. He is also on aspirin, Lipitor, Lovenox. He is on insulin as well. He denied any cardiac symptoms. Arterial Doppler showed bilateral peripheral arterial disease, most likely in the SFA or the common femoral artery area. Patient had just started the antibiotics 24 hours ago. Past Medical History: Diabetes. Allergies: NONE. Review of Systems: Negative. Social History: Negative. Family History: Negative. Medications At Home: Metformin. Physical Examination: Vital Signs: Stable. He was afebrile. General: He was in no acute distress. HEENT: Negative. Neck: Supple with no bruit. Chest: Clear. Cardiac: Regular rhythm and rate. No murmurs, gallops, or rubs. Abdomen: Obese, but benign. Extremities: Left lower extremity cellulitis. Pulses were weak bilaterally distally. Impression And Plan: 1.Peripheral arterial disease with cellulitis. No osteomyelitis. 2.Diabetes. I agree with his present regimen with aspirin, Lipitor, lovastatin, vancomycin, and ins ulin. I would prefer that he get treated with antibiotics for his cellulitis at least for 7-10 days before I do any abdominal angiography on him. He does need abdominal angiogram with possible [employer]. I will make arrangements for that as an outpatient. He can go home whenever it is okay with Dr. Edin partida. NUPUR/JOANA Voice ID: [id number] Report ID: [id number]
[2019-11-15] MEDS: INSULIN -REGULAR HUMAN 50 UNIT/0.5 ML ML SQ SCH ×4 (07:30→20:33)
[2019-11-15] MEDS: ENOXAPARIN 40 MG/0.4 ML SQ SCH (07:55)
[2019-11-15] MEDS: ASPIRIN EC 81 MG TAB PO SCH (09:00)
[2019-11-15] MEDS: CEFEPIME/SWI 1gm 1 ML IVP SCH (09:09)
[2019-11-15] MEDS: NICOTINE 21 MG/PAT TD SCH (09:11)
[2019-11-15] MEDS: MUPIROCIN 2% OINT 22GM TUBE TOP SCH ×2 (09:12→20:34)
[2019-11-15] MEDS: SODIUM HYPOCHLORITE 0.5% 473 ML TOP SCH (09:13)
[2019-11-15] MEDS: DULERA 100/5 (MOMETASONE/FORMOTEROL) INHALER IH SCH ×2 (09:13→20:34)
[2019-11-15] MEDS ORDERED: NA CHLORIDE 0.9% 1,000 ML ONE (09:21)
[2019-11-15] MEDS ORDERED: propofoL 200 MG/20 ML VIAL IV ONE (09:31)
[2019-11-15] MEDS ORDERED: FENTANYL CITR 100 MCG/2 ML ONE (09:31)
[2019-11-15] MEDS ORDERED: MIDAZOLAM HCL 2 MG/2 ML INJ ONE (09:31)
[2019-11-15] MEDS ORDERED: ONDANSETRON 4 MG/2 ML VIAL ONE (09:32)
[2019-11-15] MEDS ORDERED: dexAMETHasone 4 MG/ML VIAL ONE (09:32)
[2019-11-15] MEDS ORDERED: LIDOCAINE 1% MPF 5 ML VIAL ONE (09:32)
[2019-11-15] MEDS ORDERED: INSULIN -REGULAR HUMAN 50 UNIT/0.5 ML ML ONE (09:32)
[2019-11-15] MEDS ORDERED: KETOROLAC 30 MG/ML INJ ONE (09:34)
--- NOTE | 2019-11-15 10:19 | P.OP ---
Preoperative diagnosis: RIGHT foot abscess Postoperative diagnosis: RIGHT foot abscess Primary procedure: Incision and drainage of RIGHT foot abscess Anesthesia: GETA Estimated blood loss: <20cc Specimen: Cultures Findings: Large complex abscess of dorsum of foot Complications: None Transferred to: Recovery Room Condition: Good
[2019-11-15] MEDS: HYDROCODONE/APAP 7.5/325 MG TAB PO PRN (12:14)
[2019-11-15] MEDS ORDERED: GLUCAGON 1 MG/VIAL IM PRN (12:24)
[2019-11-15] MEDS ORDERED: D50W 25 GM/50 ML SYRINGE/VIAL IV PRN (12:24)
--- NOTE | 2019-11-15 12:31 | P.PN ---
Subjective Date of Service: 11/15/19 Primary Care Provider: none Chief Complaint: Left foot pain Subjective: Doing well Physical Examination - Vital Signs Temperature: 97.3 F Blood Pressure: 127/85 Pulse: 97 Respirations: 24 Pulse Ox (%): 98 - Physical Exam General: Alert, In no apparent distress, Oriented x3, Cooperative HEENT: Atraumatic Neck: Supple Respiratory: Clear to auscultation bilaterally, Normal air movement Cardiovascular: Normal pulses, Regular rate/rhythm Gastrointestinal: Normal bowel sounds, No rebound, No guarding Integumentary: Other (No significant change since yesterday. Still with edema and erythema) - Studies Microbiology Data (last 24 hrs): 11/12/19 14:21 Wound - Left Toe Gram Stain - Final 11/12/19 14:21 Wound - Left Toe Culture & Sensitivity - Final Streptococcus Agalactiae Grp B Staph Aureus Medications List Reviewed: Yes Assessment & Plan Discharge Plan: Home Plan to discharge in: Greater than 2 days Physician Review Additional Text: Impression: Left foot cellulitis with distal 4th ulcer, wound culture positive for Staph aureus and Streptococcus agala. Diabetes mellitus type 2 with hyperglycemia Hypertension Hyperlipidemia Diabetic neuropathy CAD Tobacco abuse GERD Suspect underlying COPD Peripheral vascular disease Plan: Left foot cellulitis with distal 4th ulcer, wound culture positive for Staph aureus and Streptococcus agala.: MRI negative for osteomyelitis. Case discus sed with surgery. Surgery is planned for irrigation and debridement. Cultures reviewed. Continue with IV vancomycin. Will discuss with infectious disease on recommendations of care. Will need to determine if patient will require long- term IV antibiotic therapy. If so patient will require PICC line. Will also need to get social work on board to arrange for patient to come to the hospital to continue IV antibiotic therapy as an outpatient. Continue to reassess. Will adjust medication for better control of diabetes. Will have physical therapy assess ambulation after surgery. Diabetes mellitus type 2 with hyperglycemia: Will continue to provide Accu- Cheks. Will start Lantus 10 units daily. Hypertension: Patient stable off medication at this time. Will monitor closely. Will consider adding lisinopril if blood pressure elevated. Hyperlipidemia: Continue medication. Diabetic neuropathy: Continue medication. CAD: Continue medication Tobacco abuse: Will provide nicotine patch GERD: Will provide medication Suspect underlying COPD: Continue medication Peripheral vascular disease: Case discussed with cardiology. Cardiology will consider abdominal angiogram within the next week or as an outpatient. Time Spent Managing Pts Care (In Minutes): 55
--- NOTE | 2019-11-15 13:19 | OP ---
Date of Procedure: 11/15/2019 Surgeon: Petey Michel MD, Preoperative Diagnosis: Right foot abscess. Postoperative Diagnosis: Right foot abscess. Procedure Performed: Incision and drainage, right foot abscess. Anesthesia: General endotracheal. Estimated Blood Loss: Less than 20 mL. Specimen: Cultures sent for both aerobic and anaerobic speciation. Findings: Large complex abscess of the dorsum of the foot extending to beyond the midfoot obviously involving and abutting the ligaments and tendons of the dorsum of the foot and involving the 4th toe with communication of this area. Complications: None. Disposition: Transferred to recovery room in good condition. Procedure In Detail: After informed consent was obtained, patient was brought to the operating room, prepped and draped in the usual sterile fashion. After adequate anesthesia was achieved, a linear i ncision was made over the dorsum of the foot down through subcutaneous tissues, immediately encounter ed there was a large multiloculated abscess extending all the way down to the ligamentous and tendino us structures. This was irrigated out and noted to have undermining toward the lateral aspect of the foot and as such, I made a T-type incision to allow for proper packing and postoperative wound care of this area and complete drainage of the abscess. After the abscess was completely removed, I also made an additional incision linear type of the 4th toe to allow for additional packing in this area a s this had some purulent material emanating from this. After these were all copiously irrigated mult iple times to completely clear, no additional hemostatic maneuvers required. The toe was packed with quarter-inch iodoform packing and the dorsal foot wound was packed with Betadine-soaked gauze and a sterile dressing was placed over top. Patient tolerated the procedure without incident or complicati on, transferred in good condition. All counts were correct at the end of the case. TEE/MODL Voice ID: [id number] Report ID: [id number]
[2019-11-15] MEDS: THIAMINE HCL 100 MG TABLET PO SCH (13:40)
[2019-11-15] MEDS: FAMOTIDINE 20 MG TAB PO SCH ×2 (13:40→20:32)
[2019-11-15] MEDS ORDERED: Ringers Lactate 1,000 ML IV SCH (19:00)
[2019-11-15] MEDS: ATORVASTATIN 40 MG TAB PO SCH (20:32)
[2019-11-15] MEDS ORDERED: INSULIN GLARGINE 100 UNITS/ML SQ SCH (21:00)
[2019-11-16] MEDS: HYDROCODONE/APAP 7.5/325 MG TAB PO PRN ×2 (02:59→20:35)
[2019-11-16] MEDS: VANCOMYCIN 2.25 GM in NA CHLORIDE 0.9% 500 ML IVPB SCH ×2 (05:02→17:25)
[2019-11-16 05:08] LABS: Absolute Lymphocytes (CBC) 1.3 K/uL (0.7-4.9); Basophils % 0.9 % (0-1.3); Hematocrit 40.9 % (39.6-49.0); Lymphocytes % 16.4 % (15.3-44.8); MPV 9.6 fL (7.6-11.3)
[2019-11-16 05:26] LABS: BUN Blood Urea Nitrogen 16 mg/dL (7-18); Bicarbonate 24 mmol/L (21-32); Glucose Level 293 mg/dL (74-106); Magnesium 2.2 mg/dL (1.8-2.4); Potassium 4.5 mmol/L (3.5-5.1); Sodium Level 133 mmol/L (136-145)
[2019-11-16] MEDS: FAMOTIDINE 20 MG TAB PO SCH ×2 (08:34→20:35)
[2019-11-16] MEDS: THIAMINE HCL 100 MG TABLET PO SCH (08:34)
[2019-11-16] MEDS: ASPIRIN EC 81 MG TAB PO SCH (08:35)
[2019-11-16] MEDS: NICOTINE 21 MG/PAT TD SCH (08:36)
[2019-11-16] MEDS: ENOXAPARIN 40 MG/0.4 ML SQ SCH (08:36)
[2019-11-16] MEDS: INSULIN -REGULAR HUMAN 50 UNIT/0.5 ML ML SQ SCH ×4 (08:37→20:37)
[2019-11-16] MEDS: SODIUM HYPOCHLORITE 0.5% 473 ML TOP SCH (08:39)
[2019-11-16] MEDS: MUPIROCIN 2% OINT 22GM TUBE TOP SCH ×2 (08:39→20:36)
[2019-11-16] MEDS: DULERA 100/5 (MOMETASONE/FORMOTEROL) INHALER IH SCH ×2 (08:39→20:36)
[2019-11-16] MEDS ORDERED: INSULIN GLARGINE 100 UNITS/ML SQ SCH ×2 (09:00→21:00)
--- NOTE | 2019-11-16 12:10 | P.PN ---
Subjective Date of Service: 11/16/19 Primary Care Provider: none Chief Complaint: Left foot pain Subjective: Improving, Doing well Physical Examination - Vital Signs Temperature: 96.0 F Blood Pressure: 131/79 Pulse: 97 Respirations: 18 Pulse Ox (%): 97 - Physical Exam General: Alert, In no apparent distress, Cooperative HEENT: Atraumatic Neck: Supple Respiratory: Clear to auscultation bilaterally, Normal air movement Cardiovascular: Normal pulses, Regular rate/rhythm Gastrointestinal: Normal bowel sounds, Soft and benign, Non-distended Musculoskeletal: Other (Left foot bandaged) Neurological: Normal speech, Normal strength at 5/5 x4 extr, Normal tone, Normal affect - Studies Microbiology Data (last 24 hrs): 11/12/19 14:18 Blood - Blood Miscellaneous Micro Reference Test - Final 11/12/19 14:21 Wound - Left Toe Gram Stain - Final 11/12/19 14:21 Wound - Left Toe Culture & Sensitivity - Final Streptococcus Agalactiae Grp B Staph Aureus Medications List Reviewed: Yes Assessment & Plan Discharge Plan: Home Plan to discharge in: 72 Hours Physician Review Additional Text: Impression: Left foot cellulitis with complex abscess/distal 4th ulcer, wound culture positive for Staph aureus and Streptococcus agala, status post irrigation and debridement. Diabetes mellitus type 2 with hyperglycemia Hypertension Hyperlipidemia Diabetic neuropathy CAD Tobacco abuse GERD Suspect underlying COPD Peripheral vascular disease Plan: Left foot cellulitis with complex abscess/distal 4th ulcer, wound culture positive for Staph aureus and Streptococcus agala. Status post irrigation and debridement: MRI negative for osteomyelitis. Case discussed with surgery. Patient had surgery yesterday. Patient doing well. Continue IV antibiotic therapy. Await further recommendations from Infectious Disease as the patient will likely require long-term IV antibiotic therapy. PICC line in place. Will continue to adjust diabetes for better diabetic control. Will discuss with psychosocial rehabilitation counselor to help arrange for outpatient IV antibiotic therapy with the hospital. Will need to discuss with physician-Dr. Garner about outpatient follow-up and to establish care Diabetes mellitus type 2 with hyperglycemia: Elevated A1c. Continue to adjust Lantus for better control. Will add metoprolol Hypertension: Will add lisinopril for better control. Hyperlipidemia: Continue medication. Diabetic neuropathy: Continue medication. CAD: Continue medication Tobacco abuse: Will provide nicotine patch GERD: Will provide medication Suspect underlying COPD: Continue medication Peripheral vascular disease: Case discussed with cardiology. Cardiology to reassess today. Will cardiology consider angiogram either tomorrow or Sunday. Time Spent Managing Pts Care (In Minutes): 55
--- NOTE | 2019-11-16 12:20 | PN ---
Date of Progress Note: 11/16/2019 Mr. Sahu is a 59-year-old male with history of diabetes. He was admitted for left foot cellulitis. No osteomyelitis. He has been treated with antibiotics since the 11 of November, which is about 4-5 da ys by now. He is improving from a cellulitis standpoint. He is on aspirin, Lipitor, lovastatin, van comycin, and insulin. Arterial Doppler has showed significant peripheral arterial disease most likel y in the iliac arteries or superficial femoral arteries. The case was discussed with Dr. Eddy. It may be difficult for Mr. Sahu to do this procedure as an outpatient because of possible compliance issues. The case was discussed with the patient. We will plan to do an abdominal angiogram with mary kate martino tomorrow with possible intervention. If he does have bilateral disease, we would prefer to analy t the left leg first. The procedure will be planned for 11/17/2019. Risk and the benefits of the pr ocedure were discussed with the patient. He agreed to proceed. His creatinine is 0.65. NUPUR/JOANA Voice ID: [id number] Report ID: [id number]
--- NOTE | 2019-11-16 12:31 | P.PN ---
Subjective Date of Service: 11/16/19 Primary Care Provider: none Chief Complaint: Left foot pain Subjective: Improving (no acute events) Physical Examination - Vital Signs Temperature: 96.0 F Blood Pressure: 131/79 Pulse: 97 Respirations: 18 Pulse Ox (%): 97 - Physical Exam General: Alert, In no apparent distress, Cooperative Musculoskeletal: Other (wound is clean and dry, dressed well) Other Physical/Emotional Findings: Patient examined with nurse practitioner. Agree with findings. - Studies Microbiology Data (last 24 hrs): 11/12/19 14:18 Blood - Blood Miscellaneous Micro Reference Test - Final 11/12/19 14:21 Wound - Left Toe Gram Stain - Final 11/12/19 14:21 Wound - Left Toe Culture & Sensitivity - Final Streptococcus Agalactiae Grp B Staph Aureus Medications List Reviewed: Yes Assessment And Plan - Current Problems (Diagnosis) (1) Abscess of left foot including toes Current Visit: Yes Status: Acute Plan: - continue IV antibiotics - daily dressing changes as ordered with dakins, damp to dry - elevation - non-weight bearing to LEFT foot Physician Review Additional Text: Impression: Left foot cellulitis with complex abscess/distal 4th ulcer, wound culture positive for Staph aureus and Streptococcus agala, status post irrigation and debridement. Diabetes mellitus type 2 with hyperglycemia Hypertension Hyperlipidemia Diabetic neuropathy CAD Tobacco abuse GERD Suspect underlying COPD Peripheral vascular disease Plan: Left foot cellulitis with complex abscess/distal 4th ulcer, wound culture positive for Staph aureus and Streptococcus agala. Status post irrigation and debridement: MRI negative for osteomyelitis. Case discussed with surgery. Patient had surgery yesterday. Patient doing well. Continue IV antibiotic therapy. Await further recommendations from Infectious Disease as the patient will likely require long-term IV antibiotic therapy. PICC line in place. Will continue to adjust diabetes for better diabetic control. Will discuss with clinical social work therapist to help arrange for outpatient IV antibiotic therapy with the hospital. Will need to discuss with physician-Dr. Garner about outpatient follow-up and to establish care Diabetes mellitus type 2 with hyperglycemia: Elevated A1c. Continue to adjust Lantus for better control. Will add metoprolol Hypertension: Will add lisinopril for better control. Hyperlipidemia: Continue medication. Diabetic neuropathy: Continue medication. CAD: Continue medication Tobacco abuse: Will provide nicotine patch GERD: Will provide medication Suspect underlying COPD: Continue medication Peripheral vascular disease: Case discussed with cardiology. Cardiology to reassess today. Will cardiology consider angiogram either tomorrow or Sunday.
[2019-11-16] MEDS: METFORMIN ER 500 MG TAB PO SCH ×2 (13:05→16:49)
[2019-11-16] MEDS: INSULIN GLARGINE 100 UNITS/ML SQ SCH ×2 (13:05→20:36)
[2019-11-16] MEDS: lisinopriL 5 MG TAB PO SCH (13:05)
[2019-11-16] MEDS: ATORVASTATIN 40 MG TAB PO SCH (20:35)
[2019-11-17 04:35] LABS: Absolute Lymphocytes (CBC) 1.3 K/uL (0.7-4.9); Basophils % 1.2 % (0-1.3); Hematocrit 40.7 % (39.6-49.0); Lymphocytes % 16.3 % (15.3-44.8); MPV 9.2 fL (7.6-11.3); RBC Red Blood Cell Count 4.29 M/uL (4.33-5.43)
[2019-11-17 04:47] LABS: BUN Blood Urea Nitrogen 15 mg/dL (7-18); Bicarbonate 30 mmol/L (21-32); Glucose Level 158 mg/dL (74-106); Magnesium 1.9 mg/dL (1.8-2.4); Potassium 4.1 mmol/L (3.5-5.1); Sodium Level 137 mmol/L (136-145)
[2019-11-17] MEDS: VANCOMYCIN 2.25 GM in NA CHLORIDE 0.9% 500 ML IVPB SCH (05:45)
[2019-11-17] MEDS: ASPIRIN EC 81 MG TAB PO SCH (05:45)
[2019-11-17] MEDS: INSULIN -REGULAR HUMAN 50 UNIT/0.5 ML ML SQ SCH ×4 (07:30→21:00)
[2019-11-17] MEDS: METFORMIN ER 500 MG TAB PO SCH ×2 (08:00→17:00)
[2019-11-17] MEDS: NICOTINE 21 MG/PAT TD SCH (08:14)
[2019-11-17] MEDS: INSULIN GLARGINE 100 UNITS/ML SQ SCH ×3 (08:14→21:42)
[2019-11-17] MEDS: ENOXAPARIN 40 MG/0.4 ML SQ SCH (08:14)
[2019-11-17] MEDS: DULERA 100/5 (MOMETASONE/FORMOTEROL) INHALER IH SCH ×2 (08:33→21:39)
[2019-11-17] MEDS: SODIUM HYPOCHLORITE 0.5% 473 ML TOP SCH (08:33)
[2019-11-17] MEDS: MUPIROCIN 2% OINT 22GM TUBE TOP SCH ×2 (08:34→21:39)
[2019-11-17] MEDS: FAMOTIDINE 20 MG TAB PO SCH ×2 (08:35→21:40)
[2019-11-17] MEDS: THIAMINE HCL 100 MG TABLET PO SCH (08:35)
[2019-11-17] MEDS: lisinopriL 5 MG TAB PO SCH (08:35)
[2019-11-17] MEDS: HYDROCODONE/APAP 7.5/325 MG TAB PO PRN ×2 (11:32→21:40)
--- NOTE | 2019-11-17 11:35 | P.PN ---
Subjective Date of Service: 11/17/19 Primary Care Provider: none Chief Complaint: Left foot pain Subjective: No new changes Patient reports pain persist to left foot. Denies any new or worsening symptoms. <Brandon Tubbs - Last Filed: 11/17/19 11:31> Date of Service: 11/17/19 Patient seen and examined with nurse practitioner <Pepito Eddy - Last Filed: 11/17/19 16:16> Review of Systems General: Unremarkable Eyes: Unremarkable ENT: Unremarkable Respiratory: Unremarkable Cardiovascular: Unremarkable Gastrointestinal: Unremarkable Musculoskeletal: As per HPI Integumentary: As per HPI Neurological: Unremarkable <Brandon Tubbs - Last Filed: 11/17/19 11:31> Physical Examination - Vital Signs Temperature: 96.8 F Blood Pressure: 130/68 Pulse: 94 Respirations: 20 Pulse Ox (%): 95 - Physical Exam General: Alert, In no apparent distress HEENT: Atraumatic, Normocephalic Neck: Supple Respiratory: Clear to auscultation bilaterally, Normal air movement Cardiovascular: No edema Capillary refill: <2 Seconds Gastrointestinal: Normal bowel sounds Integumentary: Other (Dressing present to the left lower extremity without significant drainage.) Neurological: Normal speech Other Physical/Emotional Findings: Patient examined with nurse practitioner. Agree with findings. - Studies Microbiology Data (last 24 hrs): 11/12/19 14:18 Blood - Blood Miscellaneous Micro Reference Test - Final Medications List Reviewed: Yes <Brandon Tubbs - Last Filed: 11/17/19 11:31> - Physical Exam Respiratory: Clear to auscultation bilaterally, Normal air movement Cardiovascular: Normal pulses, Regular rate/rhythm Integumentary: Other (Dressing to left lower extremity noted. No drainage noted.) - Studies Microbiology Data (last 24 hrs): 11/12/19 14:18 Blood - Blood Aerobic Blood Culture - Final No growth in 5 days. 11/12/19 14:13 Blood - Blood Aerobic Blood Culture - Final No growth in 5 days. 11/12/19 14:13 Blood - Blood Anaerobic Blood Culture - Final No growth in 5 days. <Pepito Eddy - Last Filed: 11/17/19 16:16> Assessment & Plan Discharge Plan: Home Plan to discharge in: 24 Hours Physician Review Additional Text: Impression: Left foot cellulitis with complex abscess/distal 4th ulcer, wound culture positive for Staph aureus and Streptococcus agala, status post irrigation and debridement. Diabetes mellitus type 2 with hyperglycemia Hypertension Hyperlipidemia Diabetic neuropathy CAD Tobacco abuse GERD Suspect underlying COPD Peripheral vascular disease Plan: Left foot cellulitis with complex abscess/distal 4th ulcer, wound culture positive for Staph aureus and Streptococcus agala. Status post irrigation and debridement: MRI negative for osteomyelitis. Patient is status post surgical intervention of the left lower extremity. Patient doing well. Continue IV antibiotic therapy. Await further recommendations from Infectious Disease as the patient will likely require long-term IV antibiotic therapy. PICC line in place. Will continue to adjust diabetes for better diabetic control. Will discuss with social service liaison to help arrange for outpatient IV antibiotic therapy with the hospital. Will need to discuss with physician-Dr. Garner about outpatient follow-up and to establish care. After case is discussed with infectious disease and cardiology is able to either complete angiogram or brain trip to happen outpatient patient to be discharged. Anticipate patient to be discharged next 24 to 48 hrs. Diabetes mellitus type 2 with hyperglycemia: Elevated A1c. Continue to adjust Lantus for better control. Hypertension: Will add lisinopril for better control. Will continue to monitor blood pressure Hyperlipidemia: Continue medication. Diabetic neuropathy: Continue medication. CAD: Continue medication Tobacco abuse: Will provide nicotine patch GERD: Will provide medication Suspect underlying COPD: Continue medication Peripheral vascular disease: Case discussed with cardiology. Cardiology to reassess today. Will cardiology consider angiogram either today or tomorrow. Time Spent Managing Pts Care (In Minutes): 55 <Brandon Tubbs - Last Filed: 11/17/19 11:31> Discharge Plan: Home Plan to discharge in: 48 Hours Physician Review Additional Text: Patient seen and examined with nurse practitioner. Case discussed at length. A gree with plan of care. Also discussed with cardiology. Cardiology was to have done angiogram today but the patient ate. Therefore angiogram of the lower extremities will be done tomorrow. Await findings and further recommendation. Await recommendations by infectious disease. Patient will likely require long- term IV antibiotic therapy. Patient with PICC line. Will need to arrange with case management and social work for the patient to get outpatient IV antibiotic therapy with the hospital. Patient does not have any insurance. I will discuss with physician Dr. Garner to see the patient as an outpatient and to continue IV antibiotic therapy as an outpatient. I will turn the service over to the hospitalist team tomorrow. I will go the plan of care with him. <Pepito Eddy - Last Filed: 11/17/19 16:16>
--- NOTE | 2019-11-17 12:00 | P.PN ---
Subjective Date of Service: 11/17/19 Primary Care Provider: none Chief Complaint: Left foot pain Subjective: Improving Physical Examination - Vital Signs Temperature: 96.8 F Blood Pressure: 130/68 Pulse: 94 Respirations: 20 Pulse Ox (%): 95 - Physical Exam General: Alert, In no apparent distress, Cooperative Respiratory: Clear to auscultation bilaterally Cardiovascular: Regular rate/rhythm Integumentary: Other (wound is stable, clean, serous drainage, cellulitis improving) Other Physical/Emotional Findings: Patient examined with nurse practitioner. Agree with findings. - Studies Microbiology Data (last 24 hrs): 11/12/19 14:18 Blood - Blood Miscellaneous Micro Reference Test - Final Medications List Reviewed: Yes Assessment And Plan - Current Problems (Diagnosis) (1) Abscess of left foot including toes Current Visit: Yes Status: Acute Plan: - continue IV antibiotics - daily dressing changes as ordered with dakins, damp to dry - elevation - non-weight bearing to LEFT foot Physician Review Additional Text: Impression: Left foot cellulitis with complex abscess/distal 4th ulcer, wound culture positive for Staph aureus and Streptococcus agala, status post irrigation and debridement. Diabetes mellitus type 2 with hyperglycemia Hypertension Hyperlipidemia Diabetic neuropathy CAD Tobacco abuse GERD Suspect underlying COPD Peripheral vascular disease Plan: Left foot cellulitis with complex abscess/distal 4th ulcer, wound culture positive for Staph aureus and Streptococcus agala. Status post irrigation and debridement: MRI negative for osteomyelitis. Patient is status post surgical intervention of the left lower extremity. Patient doing well. Continue IV antibiotic therapy. Await further recommendations from Infectious Disease as the patient will likely require long-term IV antibiotic therapy. PICC line in place. Will continue to adjust diabetes for better diabetic control. Will discuss with social psychologist to help arrange for outpatient IV antibiotic therapy with the hospital. Will need to discuss with physician-Dr. Garner about outpatient follow-up and to establish care. After case is discussed with infectious disease and cardiology is able to either complete angiogram or brain trip to happen outpatient patient to be discharged. Anticipate patient to be discharged next 24 to 48 hrs. Diabetes mellitus type 2 with hyperglycemia: Elevated A1c. Continue to adjust Lantus for better control. Hypertension: Will add lisinopril for better control. Will continue to monitor blood pressure Hyperlipidemia: Continue medication. Diabetic neuropathy: Continue medication. CAD: Continue medication Tobacco abuse: Will provide nicotine patch GERD: Will provide medication Suspect underlying COPD: Continue medication Peripheral vascular disease: Case discussed with cardiology. Cardiology to reassess today. Will cardiology consider angiogram either today or tomorrow.
[2019-11-17] MEDS ORDERED: HEPA 1000U/500MLS 0 UNIT/0 ML BAG IV ONE (14:18)
[2019-11-17] MEDS ORDERED: HEPARIN 5000 UNIT/ML 1 ML VIAL ONE ×2 (14:42→14:43)
[2019-11-17] MEDS ORDERED: MIDAZOLAM HCL 2 MG/2 ML INJ ONE (14:42)
[2019-11-17] MEDS ORDERED: ATROPINE SULF 1 MG/10 ML SYR IV ONE (14:43)
[2019-11-17] MEDS ORDERED: FENTANYL CITR 100 MCG/2 ML ONE (14:43)
[2019-11-17] MEDS ORDERED: NICARDIPINE HCL 25 MG/10 ML IV ONE (14:43)
[2019-11-17] MEDS: VANCOMYCIN 2 GM in NA CHLORIDE 0.9% 500 ML IVPB SCH (17:10)
--- NOTE | 2019-11-17 17:22 | P.PN ---
Date of Service: 11/17/19 Subjective: Patient is a 59-year-old male who presents with left foot pain. Over the past week patient noticed erythema, swelling, and ulcer. Patient reports new pair of hiking shoes. Patient examined at bedside. Denies nausea, vomiting, diarrhea, fevers, shortness of breath and pain/difficulty urinating. Objective: Temp Pulse Resp BP Pulse Ox 96.8 F 94 H 20 130/68 95 11/17/19 12:00 11/17/19 12:00 11/17/19 12:31 11/17/19 12:00 11/17/19 12:31 Labs: Na 137, K 4.1, Glucose 158, WBC 7.9, PLT 217 Foot Xray 11/11: EXAM DESCRIPTION: RAD - Foot Left 3 View - 11/12/2019 2:23 pm CLINICAL HISTORY: PAIN COMPARISON: No comparisons FINDINGS: There is significant soft tissue swelling along the dorsum of the forefoot. Subtle irregularity of very distal aspect of the distal phalanx of the fourth toe could represent early osteomyelitis. No fracture seen. MRI Foot 11/12: EXAM DESCRIPTION: MRI - Foot Right Wo Cont - 11/13/2019 4:05 pm CLINICAL HISTORY: left foot cellulitis rule out osteomyelitis COMPARISON: Foot Left 3 View dated 11/12/2019 TECHNIQUE: Multiplanar imaging of the left foot performed using T1 weighted, T1 fat saturation, T2 fat saturation and T2 STIR sequencing FINDINGS: Hyperintense T1 and hypointense T2/T2 fat saturation sequencing noted in the fourth and fifth phalanges. Specifically, the fourth distal phalanx shows normal MR marrow signal characteristics. No cortical disruption. Elsewhere no suspicious marrow signal pattern. No destructive or acute bone process seen. Soft tissue edema changes are present. No abscess or drainable fluid collection. IMPRESSION: No osteomyelitis findings. No acute or destructive bone process. Soft tissue edema changes without abscess or drainable fluid collection. ROS: General: Awake, alert, sitting upright in bed CV: S1, S2 RESP: clear to auscultation ABD: Lito, nontender, normoactive bowel sounds Extremities: Swelling to left lower extremity Skin: Erythema, warmth, swelling to left lower extremity. Left dorsal foot with open wound s/p debridement 11/14, granulation tissue and small amount of slough. Assessment and plan: Left lower extremity swelling, doppler negative for DVT Cellulitis LLE MRI shows no osteomyelitis or destructive bone Leukocytosis resolved Wound culture 5/6 positive for Strep Agalactiae and Staph aureus Blood cultures 5/6 negative Diabetes, monitor glycemic control Continue current treatment plan Will continue to monitor Patient discussed with Dr. love
[2019-11-17] MEDS: ATORVASTATIN 40 MG TAB PO SCH (21:40)
[2019-11-18 05:15] LABS: Absolute Lymphocytes (CBC) 1.2 K/uL (0.7-4.9); Basophils % 1.3 % (0-1.3); Hematocrit 44.1 % (39.6-49.0); MPV 9.4 fL (7.6-11.3); RBC Red Blood Cell Count 4.61 M/uL (4.33-5.43)
[2019-11-18 05:37] LABS: BUN Blood Urea Nitrogen 11 mg/dL (7-18); Bicarbonate 29 mmol/L (21-32); Glucose Level 92 mg/dL (74-106); Potassium 3.8 mmol/L (3.5-5.1); Sodium Level 139 mmol/L (136-145)
[2019-11-18] MEDS: VANCOMYCIN 2 GM in NA CHLORIDE 0.9% 500 ML IVPB SCH (05:58)
[2019-11-18] MEDS: lisinopriL 5 MG TAB PO SCH (05:58)
[2019-11-18] MEDS: ASPIRIN EC 81 MG TAB PO SCH ×2 (05:59→14:38)
[2019-11-18] MEDS: INSULIN -REGULAR HUMAN 50 UNIT/0.5 ML ML SQ SCH (07:30)
[2019-11-18] MEDS: INSULIN GLARGINE 100 UNITS/ML SQ SCH (09:00)
[2019-11-18] MEDS: ENOXAPARIN 40 MG/0.4 ML SQ SCH (09:00)
[2019-11-18] MEDS ORDERED: POTASSIUM CL SA 10 MEQ TAB PO ONE (09:00)
[2019-11-18] MEDS: DULERA 100/5 (MOMETASONE/FORMOTEROL) INHALER IH SCH (10:03)
[2019-11-18] MEDS: MUPIROCIN 2% OINT 22GM TUBE TOP SCH (10:03)
[2019-11-18] MEDS: SODIUM HYPOCHLORITE 0.5% 473 ML TOP SCH (10:04)
[2019-11-18] MEDS ORDERED: NA CHLORIDE 0.9% 500 ML ONE (11:11)
[2019-11-18] MEDS ORDERED: HEPA 1000U/500MLS 0 UNIT/0 ML BAG IV ONE (11:35)
[2019-11-18] MEDS ORDERED: HEPARIN 5000 UNIT/ML 1 ML VIAL ONE (11:43)
[2019-11-18] MEDS ORDERED: MIDAZOLAM HCL 2 MG/2 ML INJ ONE ×2 (11:43→12:14)
[2019-11-18] MEDS ORDERED: HEPA 1000U/500MLS 1,000 UNIT/500 ML BAG IV ONE (11:43)
[2019-11-18] MEDS ORDERED: FENTANYL CITR 100 MCG/2 ML ONE (11:44)
[2019-11-18 13:30] VITALS: TEMP 96.7
--- NOTE | 2019-11-18 13:59 | P.CNS ---
Date of Consult: 11/18/[address] Davis for out patient follow up. Mr Sahu is a pleasant gentleman. Unfortunately he does not have insurance and has not been getting primary care. He has a history of diabetes. He presents with a foot abcess which was I&D by Dr. Michel. MRI showed no osteomyletis. He has a positive wound cultures for staph aureus . and str. Aglactica. Both sensitive to Levaquin. The patient has an a1c of 10. He also had a pvd on arterial dopplers. Dr. Redd took him for an angiogram. Which showed b/l sfa obst. He will need a out pt fem pop bypass. [employer]. Drowsy but arousable HEENT PERRLA, , eom, CVS, s1,s2, rrr RS LCTA ABD soft nontender, no organomegaly A/p 1. Abcess. He is being discharged home today. Will give him 2 weeks of levaquin. Have discussed this with Dr. Rust. 2. Diabetes. The patient is uncontrolled. Will need outpt follow up and management. Have given him my CARd 3. HTN 4. hyperlipidemia 5. PVD. Will need to refer him to [facility] or [facility] for possible fem pop bypass. Will talk to Dr. Redd about any anticoagulation.
[2019-11-18 14:02] VITALS: BP 143/97; O2SAT 94
[2019-11-18] MEDS: THIAMINE HCL 100 MG TABLET PO SCH (14:38)
[2019-11-18] MEDS: FAMOTIDINE 20 MG TAB PO SCH (14:38)
[2019-11-18] MEDS: NICOTINE 21 MG/PAT TD SCH (14:39)
--- NOTE | 2019-11-18 15:01 | PN ---
Date of Progress Note: 11/18/2019 Subjective: Patient seen and examined. Chart reviewed and case discussed with RN. Patient states h is foot is doing okay. Medications: List reviewed. Physical Examination: Vital Signs: Temperature 96.5, heart rate 87, blood pressure 132/81, respirations 18, O2 97% on room air. General: Awake, alert, oriented x3, in some mild distress due to pain, ill-appearing male, obese. CV: S1, S2. Regular rate and rhythm. Peripheral pulses present. Respiratory: Moving air well bilaterally. No wheezing or stridor. Gastrointestinal: Abdomen is soft, nontender, nondistended. Positive bowel sounds. Extremities: No clubbing, cyanosis, or edema. Skin: Patient has a left lower extremity foot dressing in place. No drainage. Clean, dry, intact. Neuro: Nonfocal. Laboratory Data: Sodium 139, potassium 3.8, chloride 105, CO2 of 29, BUN 11, creatinine 0.76, glucos e 92, calcium 9.2, magnesium 2. WBC 8.8, H and H 14.4/44.1, platelets 213. Blood cultures, no growt h to date. Wound cultures growing out Streptococcus agalactiae and Staph aureus. Assessment: A 59-year-old male with: 1.Left lower extremity cellulitis. We will continue with IV antibiotics. MRI is negative for osteo myelitis. WBC count is normal. Wound culture positive for Streptococcus agalactiae and Staphylococc us aureus. Patient will need long-term IV antibiotics. PICC line is in place. We will need to disc uss with Dr. Garner regarding outpatient followup and to establish care. Patient will have angiogram done to evaluate peripheral vascular disease. 2.Diabetes mellitus type 2 with hyperglycemia. Patient has elevated A1c. Continue to adjust Lantus as necessary. We will continue with sliding scale insulin. 3.Essential hypertension. Continue lisinopril. 4.Mixed hyperlipidemia, stable. 5.Diabetic neuropathy, stable. 6.Coronary artery disease. We will continue medication. No angina, sitka artery, sitka heart. 7.Nicotine dependence with cigarette smoking. Continue patch. 8.Obesity, BMI 37. 9.Gastroesophageal reflux disease. Continue PPI. 10.Suspected underlying chronic obstructive pulmonary disease. Continue inhalers. 11.Peripheral vascular disease. Angiogram today. Discharge planning. /JOANA Voice ID: [id number] Report ID: [id number]
--- NOTE | 2019-11-18 15:57 | P.PN ---
Date of Service: 11/18/19 Subjective: Patient is a 59-year-old male who presents with left foot pain. Over the past week patient noticed erythema, swelling, and ulcer. Patient reports new pair of hiking shoes. Patient examined at bedside. Denies nausea, vomiting, diarrhea, fevers, shortness of breath and pain/difficulty urinating. Objective: Temp Pulse Resp BP Pulse Ox 96.7 F L 90 20 143/97 H 96 11/18/19 12:00 11/18/19 13:55 11/18/19 13:55 11/18/19 13:55 11/18/19 12:00 Labs: Na 139, K 3.8, WBC 8.8, PLT 213 Foot Xray 11/11: EXAM DESCRIPTION: RAD - Foot Left 3 View - 11/12/2019 2:23 pm CLINICAL HISTORY: PAIN COMPARISON: No comparisons FINDINGS: There is significant soft tissue swelling along the dorsum of the forefoot. Subtle irregularity of very distal aspect of the distal phalanx of the fourth toe could represent early osteomyelitis. No fracture seen. MRI Foot 11/12: EXAM DESCRIPTION: MRI - Foot Right Wo Cont - 11/13/2019 4:05 pm CLINICAL HISTORY: left foot cellulitis rule out osteomyelitis COMPARISON: Foot Left 3 View dated 11/12/2019 TECHNIQUE: Multiplanar imaging of the left foot performed using T1 weighted, T1 fat saturation, T2 fat saturation and T2 STIR sequencing FINDINGS: Hyperintense T1 and hypointense T2/T2 fat saturation sequencing noted in the fourth and fifth phalanges. Specifically, the fourth distal phalanx shows normal MR marrow signal characteristics. No cortical disruption. Elsewhere no suspicious marrow signal pattern. No destructive or acute bone process seen. Soft tissue edema changes are present. No abscess or drainable fluid collection. IMPRESSION: No osteomyelitis findings. No acute or destructive bone process. Soft tissue edema changes without abscess or drainable fluid collection. ROS: General: Awake, alert, sitting upright in bed CV: S1, S2 RESP: clear to auscultation ABD: Lito, nontender, normoactive bowel sounds Extremities: Swelling to left lower extremity Skin: Erythema, warmth, swelling to left lower extremity. Left dorsal foot with open wound s/p debridement 11/14, granulation tissue and small amount of slough. Assessment and plan: Cellulitis LLE Left lower extremity swelling, doppler negative for DVT MRI shows no osteomyelitis or destructive bone Leukocytosis resolved Wound culture 5/6 positive for Strep Agalactiae and Staph aureus Blood cultures 5/6 negative Diabetes, monitor glycemic control Patient had angiogram today that showed blockage to bilateral SFA, need fem pop for wound to heal Recommend to discharge on PO Levaquin for total of 2 weeks Will continue to monitor Patient discussed with Dr. love
--- NOTE | 2019-11-19 01:11 | DS ---
Date of Discharge: 11/18/2019 Consultants: 1. Dr. Garner, Internal Medicine. 2. Dr. Michel, General Surgery. 3. Dr. Michael, Infectious Disease. 4. Dr. Redd with Cardiology. Procedures: On 11/15/2019, incision and drainage, right foot abscess by Dr. Michel. Lower extremity angiogram by Dr. Redd on 11/18/2019. Admitting Diagnoses: 1. Left foot cellulitis with suspected osteomyelitis, ulcer. 2. Diabetes mellitus type 2 with hyperglycemia, non-insulin requiring. 3. Essential hypertension. 4. Mixed hyperlipidemia. 5. Diabetic neuropathy. 6. Coronary artery disease. 7. Nicotine dependence with cigarette smoking. Discharge Diagnoses: 1. Left foot cellulitis with complex abscess, ulcer. Wound culture positive for Staphylococcus aureus and Streptococcus agalactiae, status post incision and drainage. MRI negative for any osteomyelitis. 2. Diabetes mellitus type 2, uncontrolled with hemoglobin A1c, elevated, now on Lantus with hyperglycemia. 3. Essential hypertension, stable. 4. Mixed hyperlipidemia, on statin. 5. Peripheral vascular disease, angiogram done. Patient will need outpatient followup with Vascular Surgery for femoral-popliteal bypass. 6. Suspect underlying chronic obstructive pulmonary disease, placed on Dulera and albuterol as needed. 7. Gastroesophageal reflux disease. 8. Nicotine dependence with cigarette smoking. Continue patch. 9. Coronary artery disease, aspirin. 10. Obesity, BMI 37. Hospital Course: Patient is a 59-year-old male, came in with left foot pain, swelling, erythema, had ulceration. Venous Doppler was negative. Patient's x- ray of the foot showed significant swelling of the dorsum of the foot and x-ray showed possible irregularity. MRI was done, which was negative for osteomyelitis. Cultures were obtained. Blood cultures were negative. Wound cultures grew out Streptococcus and Staph aureus, which were sensitive to vancomycin, Levaquin. Patient was seen by ID and General Surgery for the debridement as mentioned above. Patient also seen by Cardiology for his peripheral vascular disease. Echocardiogram was also done, showed EF of 44%, mild global hypokinesis. No effusion was seen. Patient also seen by Dr. Garner to establish care with PCP. Patient was seen by Dr. Garner since he did not have any acute osteomyelitis. There was no infection in the bone, no abscess. He will be continuing oral antibiotics with Levaquin for total of 2 weeks with weekly CBC, CMP, ESR, and CRP and to repeat his cultures, he will be following up with Dr. Garner closely. He will need to hold his metformin for 2 days after the angiogram. His medications have been adjusted. He is on GUADALUPE inhibitor for his hypertension. We will also need anti-platelet therapy with aspirin which was confirmed w underwear trimmer Dr. Redd. For physical exam findings, please see progress note dictated on the day of discharge. Medications: As per medication reconciliation list. Followup: Follow up with primary care physician in 2 to 3 days. Followup: Follow up with primary care physician, Dr. Garner in 1 week. Follow up with Infectious Disease, Dr. Michael in 2 weeks. Follow up with surgeon, Dr. Michel in 7 to 10 days for wound check. Patient understands the importance of controlling his COPD and diabetes and to quit smoking, he has done well with nicotine patches. /JOANA Voice ID: [id number] Report ID: [id number] PAMELA
--- NOTE | 2019-11-19 04:47 | OP ---
Surgeon: Rufus Redd MD Cut Off Saw Set Up Operator: Chirag Carty. Mr. Sahu was brought to the crime lab technician yesterday as an inpatient for an abdominal angiogram, was runo ff. Procedure In Detail: Mr. Sahu had come in with left leg wound cellulitis and arterial Doppler show ed severe peripheral vascular disease. The patient was brought to the crime lab technician, was given Versed for sedation. A 6-Turkmen sheath was introduced in the right common femoral artery successfully. A SIERRA catheter was introduced above the renals. Angiography showed normal renals, normal aorta. His julia c had [id number]-[id number] plaquing bilaterally, but no focal stenosis. Selective injection of the SFA b ilaterally showed complete occlusion of his SFAs from the ostium bilaterally. Both SFAs reconstitute d at the popliteal level with pretty good distal flow below the knees. Complications: There were no complications. Blood Loss: 5 mL. Anesthesia: Total conscious sedation was 30 minutes. Final Diagnosis: Severe peripheral arterial disease, not a candidate for peripheral intervention. For now, we will continue medical therapy, but the best approach to Mr. Sahu's peripheral arterial disease is for him to have bilateral fem-pop at some point. I will discuss the case with him and wit h his primary care physician. For now, we will continue his present regimen to include aspirin and s tatin. No need for Plavix at this point. The case was discussed with Dr. Garner. The patient will b e going back up to room for 2 hours bedrest after which he can go home whenever it is okay with his primary care admi tting physicians. NUPUR/JOANA Voice ID: [id number] Report ID: [id number]
== END 2019-11-18 15:29 | disposition home or self-care (01) | DRG 603 ==
LOC: ER 11:19 → ERHOLD 14:39 → 2ND 15:54
PROVIDERS: ADMIT Family Medicine; ATTEND Family Medicine
PROC: 0J9R3ZZ Drainage of Left Foot Subcutaneous Tissue and Fascia, Percutaneous Approach (ICD-10-PCS; principal; 2019-11-15 09:30)
PROC: B41D1ZZ Fluoroscopy of Aorta and Bilateral Lower Extremity Arteries using Low Osmolar Contrast (ICD-10-PCS; 2019-11-18)
DX: L03.116 Cellulitis of left lower limb (principal); L02.612 Cutaneous abscess of left foot; I10 Essential (primary) hypertension; I25.10 Atherosclerotic heart disease of native coronary artery without angina pectoris; F17.210 Nicotine dependence, cigarettes, uncomplicated; E11.621 Type 2 diabetes mellitus with foot ulcer; L97.529 Non-pressure chronic ulcer of other part of left foot with unspecified severity; E11.40 Type 2 diabetes mellitus with diabetic neuropathy, unspecified; Z79.84 Long term (current) use of oral hypoglycemic drugs; Z79.899 Other long term (current) drug therapy; Z91.14 Patient's other noncompliance with medication regimen; B95.61 Methicillin susceptible Staphylococcus aureus infection as the cause of diseases classified elsewhere; B95.1 Streptococcus, group B, as the cause of diseases classified elsewhere; E11.65 Type 2 diabetes mellitus with hyperglycemia; J44.9 Chronic obstructive pulmonary disease, unspecified; E78.2 Mixed hyperlipidemia; E66.9 Obesity, unspecified; Z68.37 Body mass index [BMI] 37.0-37.9, adult; E11.21 Type 2 diabetes mellitus with diabetic nephropathy
CPT/HCPCS: 36200; 36415; 71045; 80048; 80061; 80202; 81003; 81015; 82947; 83036; 83735; 84439; 84443; 84484; 85025; 87040; 87070; 87075; 87077; 87186; 87205; 93005; 93306; 93923; 93971; 96365; 97116; 97161; 97165; 97530; 99285; C1760; C1887; C1893; J0692; J1644; J1650; J1815; J2250; J2405; J2704; J3010; J3475; J7030; J7040; J7120; J7606

== ENCOUNTER 2019-12-23 07:54 | Inpatient (IN) | payer OTHER, SELFPAY ==
[2019-12-23 08:43] LABS: Absolute Lymphocytes (CBC) 0.7 K/uL (0.7-4.9); Basophils % 1.2 % (0-1.3); Hematocrit 46.9 % (39.6-49.0); Lymphocytes % 11.2 % (15.3-44.8); MPV 9.1 fL (7.6-11.3); RBC Red Blood Cell Count 4.77 M/uL (4.33-5.43)
[2019-12-23] MEDS ORDERED: PIPER/TAZO/NS 3.375gm 3.375 GM/100 ML BAG ONE (08:45)
[2019-12-23 08:53] LABS: Protime INR 1.13
[2019-12-23 09:02] LABS: ALT/SGPT 34 U/L (12-78); AST/SGOT 26 U/L (15-37); Albumin 3.5 g/dL (3.4-5.0); Alkaline Phosphatase 104 U/L (45-117); Amylase 34 U/L (25-115); BUN Blood Urea Nitrogen 10 mg/dL (7-18); Bicarbonate 25 mmol/L (21-32); Bilirubin Direct 0.2 mg/dL (0-0.2); Bilirubin Total 0.7 mg/dL (0.2-1.0); CKMB Creatine Kinase MB 2.1 ng/mL (0.3-3.6); Creatine Phosphokinase 65 U/L (39-308); Glucose Level 220 mg/dL (74-106); Lipase 124 U/L (73-393); Protein, Total 7.6 g/dL (6.4-8.2); Sodium Level 135 mmol/L (136-145); Troponin (Emerg Dept Use Only) 0.04 ng/mL (0.0-0.045)
--- OUTSIDE RECORDS SUMMARY | 2019-12-23 09:21 | XMS REPORT | Continuity of Care Document ---
:1960 Author Organization [facility] t Address [address] [place] [address] Dr. Estrada [address] [place] [address] Care Team Providers Name Role Phone Unavailable Unavailable Unavailable Problems This patient has no known problems. Allergies, Adverse Reactions, Alerts This patient has no known allergies or adverse reactions. Medications This patient has no known medications. Procedures This patient has no known procedures. Results This patient has no known results.
--- NOTE | 2019-12-23 09:51 | RAD REPORT ---
EXAM DESCRIPTION: RAD - Foot Left 3 View - 12/23/2019 9:35 am CLINICAL HISTORY: Pain;Swelling, history of foot infection subsequent to surgery in November. Site of wou nd or concern not detailed COMPARISON: Foot Left 3 View dated 11/12/2019 FINDINGS: No fracture, dislocation or periosteal reaction. No acute or destructive bony process. Wound is seen over the dorsum of the foot. There is no foreign body present. Small plantar spur is pr esent. IMPRESSION: Soft tissue wound and soft tissue swelling present over the dorsum of the foot. Air dens ity in the soft tissues is believed be part of the open wound and not air from a gas-forming organism . No bone destruction.
--- NOTE | 2019-12-23 09:52 | RAD REPORT ---
EXAM DESCRIPTION: RAD - Chest Single View - 12/23/2019 9:35 am CLINICAL HISTORY: infection, hypertension COMPARISON: November 2019 TECHNIQUE: AP portable chest image was obtained 12/23/2019 9:35 am . FINDINGS: No acute lung parenchymal process. Detail is limited by portable technique and body habitu s. Failure or volume overload are not suspected. Heart and vasculature are normal. No measurable pleu ral effusion and no pneumothorax. No acute bony abnormality seen. No acute aortic findings suspected. IMPRESSION: Limited portable study without acute cardiopulmonary finding. No significant change from comparison.
--- NOTE | 2019-12-23 10:06 | ER ---
Nurse's Notes [facility] Name: Clifton Sahu Jr Age: 59 yrs Sex: Male : 1960 Arrival Date: 12/23/2019 Time: 07:57 Bed 16 Private MD: Diagnosis: Cellulitis and acute lymphangitis of other parts of limb-foot;Edema, unspecified-venous insufficency;Tobacco abuse counseling;Tobacco use;Type 2 diabetes mellitus Presentation: 12/22 08:06 Chief complaint: Patient states: left foot infection that has been ongoing since before sv his foot surgery in November 2019. Has only been cleaning it with NS. Coronavirus screen: Proceed with normal triage. Patient denies a cough. Patient denies shortness of breath or difficulty breathing. Patient denies measured and/or subjective temperature greater than 100.4F prior to today's visit. Patient denies travel on a cruise ship or to a country the [facility] currently lists as an affected area. Patient denies contact with known and/or suspected case of COVID-19. Ebola Screen: No symptoms or risks identified at this time. Initial Sepsis Screen: Does the patient meet any 2 criteria? HR > 90 bpm. No. Patient's initial sepsis screen is negative. Does the patient have a suspected source of infection? Yes: Skin breakdown/wound. Risk Assessment: Do you want to hurt yourself or someone else? Patient reports no desire to harm self or others. Onset of symptoms was November 2019. 08:06 Method Of Arrival: Wheelchair sv 08:06 Acuity: MOLLY 2 sv Triage Assessment: 08:06 General: Appears in no apparent distress. uncomfortable, obese, well developed, sv Behavior is calm, cooperative, appropriate for age. Pain: Complains of pain in dorsum of left foot. Neuro: Level of Consciousness is awake, alert, obeys commands, Oriented to person, place, time, situation, Moves all extremities. Full function Gait is steady. Respiratory: Airway is patent Respiratory effort is even, unlabored, Respiratory pattern is regular, symmetrical. Derm: Skin is intact, Skin is pink, warm \T\ dry. Wound noted dorsum of left foot Wound is open, unstageable decubitus wound, with foul odor. Redness noted up the left foot. Historical: - Allergies: 08:08 No Known Allergies; sv - PMHx: 08:08 Diabetes - NIDDM; Hypertension; sv - PSHx: 08:08 left foot; sv - Immunization history:: Adult Immunizations up to date, Flu vaccine is up to date. - Social history:: Smoking status: Patient reports the use of cigarette tobacco products, denies chronic smoking, but will smoke occasionally. Screenin:08 Abuse screen: Denies threats or abuse. Denies injuries from another. Nutritional sv screening: No deficits noted. Tuberculosis screening: No symptoms or risk factors identified. Fall Risk None identified. Assessment: 08:49 Reassessment: Patient appears in no apparent distress at this time. No changes from sv previously documented assessment. Patient and/or family updated on plan of care and expected duration. Pain level reassessed. Patient is alert, oriented x 3, equal unlabored respirations, skin warm/dry/pink. See triage assessment. 09:41 Reassessment: Patient appears in no apparent distress at this time. No changes from sv previously documented assessment. Patient and/or family updated on plan of care and expected duration. Pain level reassessed. Patient is alert, oriented x 3, equal unlabored respirations, skin warm/dry/pink. 11:35 Reassessment: Attempted to call report, nurse to call back. sv Vital Signs: 08:06 BP 146 / 119; Pulse 110; Resp 20; Temp 97.4; Pulse Ox 96% ; Weight 117.93 kg; Height 5 sv ft. 11 in. (180.34 cm); 09:43 BP 133 / 95; Pulse 95; Resp 20; Pulse Ox 96% ; sv 10:30 BP 134 / 99; Pulse 95; Resp 16; Pulse Ox 96% ; sv 11:15 BP 143 / 92; Pulse 101; Resp 18; Pulse Ox 98% ; sv 08:06 Body Mass Index 36.26 (117.93 kg, 180.34 cm) sv ED Course: 07:57 Patient arrived in ED. as 07:58 Kathy Molina, GRETCHEN is Primary Nurse. sv 07:59 Ignacio Zuniga MD is Attending Physician. [facility] 08:07 Triage completed. sv 08:08 Arm band placed on. sv 08:08 Patient has correct armband on for positive identification. Bed in low position. Call light in reach. Pulse ox on. NIBP on. 08:25 First set of blood cultures drawn by me. Inserted saline lock: 20 gauge in right sv forearm, using aseptic technique. Blood collected. Flushed right forearm with 5 ml normal saline. 08:40 Second set of blood cultures drawn by me. sv 09:35 Chest Single View XRAY In Process Unspecified. EDMS 09:35 Foot Left 3 View XRAY In Process Unspecified. EDMS 09:43 Amylase, Serum Sent. sv 09:43 Basic Metabolic Panel Sent. sv 10:02 Pepito Eddy DO is Hospitalizing Provider. [facility] 11:40 Wound care: to decubitus located on dorsum of left foot was cleaned with with NS, sv dressed with 4X4s, Kerlix, wet to dry dressing. 11:43 No provider procedures requiring assistance completed. Patient admitted, IV remains in sv place. intact. Administered Medications: 08:49 Drug: Zosyn 3.375 grams Route: IVPB; Infused Over: 60 mins; Site: left forearm; sv 09:45 Follow up: Response: No adverse reaction; IV Status: Completed infusion; IV Intake: sv 100ml Intake: 09:45 IV: 100ml; Total: 100ml. sv Outcome: 10:05 Decision to Hospitalize by Provider. leoncio 11:43 Admitted to Med/surg accompanied by tech, via wheelchair, room 232, with chart, Report sv called to Zelda GODINEZ 11:43 Condition: stable 11:43 Instructed on the need for admit. 11:51 Patient left the ED. sv Signatures: Dispatcher [employer] Kathy Brady RN RN sv Ignacio Zuniga MD MD cha Martinez, Amelia as
--- NOTE | 2019-12-23 10:06 | EDPHYS ---
Physician Documentation [facility] Name: Clifton Sahu Jr Age: 59 yrs Sex: Male : 1960 Arrival Date: 12/23/2019 Time: 07:57 Bed 16 Private MD: ED Physician Ignacio Zuniga HPI: 12/22 08:34 This 59 yrs old Male presents to ER via Wheelchair with complaints of Wound leoncio Check - foot. 08:34 Patient presents to ED for recheck of: cellulitis, pt had debridement in november, no folow leoncio up since then. The affected area is on the dorsum of left foot. Previous treatment: Outpatient prescription(s): The patient was given prescription(s) for fluoquinolone, Levaquin. Progress: The patient reports increased drainage, pain, redness, swelling. The patient has experienced similar episodes in the past, several times. Historical: - Allergies: 08:08 No Known Allergies; sv - PMHx: 08:08 Diabetes - NIDDM; Hypertension; sv - PSHx: 08:08 left foot; sv - Immunization history:: Adult Immunizations up to date, Flu vaccine is up to date. - Social history:: Smoking status: Patient reports the use of cigarette tobacco products, denies chronic smoking, but will smoke occasionally. ROS: 08:37 Constitutional: Negative for fever, chills, and weight loss, Eyes: Negative for injury, leoncio pain, redness, and discharge, ENT: Negative for injury, pain, and discharge, Neck: Negative for injury, pain, and swelling, Respiratory: Negative for shortness of breath, cough, wheezing, and pleuritic chest pain, Abdomen/GI: Negative for abdominal pain, nausea, vomiting, diarrhea, and constipation, Back: Negative for injury and pain, : Negative for injury, bleeding, discharge, and swelling, Neuro: Negative for headache, weakness, numbness, tingling, and seizure, Psych: Negative for depression, anxiety, suicide ideation, homicidal ideation, and hallucinations, Allergy/Immunology: Negative for hives, rash, and allergies, Endocrine: Negative for neck swelling, polydipsia, polyuria, polyphagia, and marked weight changes, Hematologic/Lymphatic: Negative for swollen nodes, abnormal bleeding, and unusual bruising. 08:37 Cardiovascular: Positive for palpitations. 08:37 MS/extremity: Positive for erythema, pain, swelling, tenderness, of the dorsum of left foot. Exam: 08:37 Constitutional: This is a well developed, well nourished patient who is awake, alert, leoncio and in no acute distress. Head/Face: Normocephalic, atraumatic. Eyes: Pupils equal round and reactive to light, extra-ocular motions intact. Lids and lashes normal. Conjunctiva and sclera are non-icteric and not injected. Cornea within normal limits. Periorbital areas with no swelling, redness, or edema. ENT: Nares patent. No nasal discharge, no septal abnormalities noted. Tympanic membranes are normal and external auditory canals are clear. Oropharynx with no redness, swelling, or masses, exudates, or evidence of obstruction, uvula midline. Mucous membranes moist. Neck: Trachea midline, no thyromegaly or masses palpated, and no cervical lymphadenopathy. Supple, full range of motion without nuchal rigidity, or vertebral point tenderness. No Meningismus. Chest/axilla: Normal chest wall appearance and motion. Nontender with no deformity. No lesions are appreciated. Cardiovascular: Regular rate and rhythm with a normal S1 and S2. No gallops, murmurs, or rubs. Normal PMI, no JVD. No pulse deficits. Respiratory: Lungs have equal breath sounds bilaterally, clear to auscultation and percussion. No rales, rhonchi or wheezes noted. No increased work of breathing, no retractions or nasal flaring. Abdomen/GI: Soft, non-tender, with normal bowel sounds. No distension or tympany. No guarding or rebound. No evidence of tenderness throughout. Back: No spinal tenderness. No costovertebral tenderness. Full range of motion. Neuro: Awake and alert, GCS 15, oriented to person, place, time, and situation. Cranial nerves II-XII grossly intact. Motor strength 5/5 in all extremities. Sensory grossly intact. Cerebellar exam normal. Normal gait. Psych: Awake, alert, with orientation to person, place and time. Behavior, mood, and affect are within normal limits. 08:37 Skin: cellulitis, that is mild, that is moderate, induration, that is moderate is noted, injury, pt had debridement left foot, dorsal aspect. 09:42 ECG was reviewed by the Attending Physician. [facility] Vital Signs: 08:06 BP 146 / 119; Pulse 110; Resp 20; Temp 97.4; Pulse Ox 96% ; Weight 117.93 kg; Height 5 sv ft. 11 in. (180.34 cm); 09:43 BP 133 / 95; Pulse 95; Resp 20; Pulse Ox 96% ; sv 10:30 BP 134 / 99; Pulse 95; Resp 16; Pulse Ox 96% ; sv 11:15 BP 143 / 92; Pulse 101; Resp 18; Pulse Ox 98% ; sv 08:06 Body Mass Index 36.26 (117.93 kg, 180.34 cm) sv MDM: 07:59 Patient medically screened. leoncio 08:39 Data reviewed: vital signs, nurses notes, lab test result(s), radiologic studies, plain leoncio films. Data interpreted: potline monitor: rate is 110 beats/min, rhythm is normal sinus rhythm, Pulse oximetry: on room air is 96 %. Test interpretation: by ED physician or midlevel provider: ECG, plain radiologic studies. Counseling: I had a detailed discussion with the patient and/or guardian regarding: the historical points, exam findings, and any diagnostic results supporting the discharge/admit diagnosis, lab results, radiology results. 08:39 Differential diagnosis: cellulitis, foreign body, penetrating trauma, cellulitis. [facility] 10:00 ED course: to dr heredia, wound needs attention, debridement, iv abx, giovanna agrees, dw [facility] plan with the patient. 12/22 08:15 Order name: Amylase, Serum 12/22 08:15 Order name: Basic Metabolic Panel 12/22 08:15 Order name: Blood Culture Adult (2) sv 12/22 08:15 Order name: CBC with Diff; Complete Time: 09:50 12/22 08:15 Order name: Ckmb; Complete Time: 09:50 12/22 08:15 Order name: CPK; Complete Time: 09:50 12/22 08:15 Order name: Lactate; Complete Time: 09:50 12/22 08:15 Order name: LFT's; Complete Time: 09:50 12/22 08:15 Order name: Lipase; Complete Time: 09:50 12/22 08:15 Order name: Procalcitonin; Complete Time: 11:16 12/22 08:15 Order name: Protime (+inr); Complete Time: 09:50 sv 12/22 08:15 Order name: Ptt, Activated; Complete Time: 09:50 sv 12/22 08:15 Order name: Troponin (emerg Dept Use Only); Complete Time: 09:50 sv 12/22 08:17 Order name: Amylase; Complete Time: 09:50 EDMS 12/22 08:15 Order name: Chest Single View XRAY; Complete Time: 10:00 sv 12/22 08:15 Order name: Accucheck; Complete Time: 09:43 sv 12/22 08:15 Order name: EKG - Nurse/Tech; Complete Time: 09:43 sv 12/22 08:15 Order name: IV Saline Lock - Large Bore; Complete Time: 09:43 sv 12/22 08:15 Order name: Labs collected and sent; Complete Time: 09:43 sv 12/22 08:15 Order name: O2 Per Protocol; Complete Time: 09:43 sv 12/22 08:15 Order name: O2 Sat Monitoring; Complete Time: 09:43 sv 12/22 08:17 Order name: Basic Metabolic Panel; Complete Time: 09:50 EDMS 12/22 08:34 Order name: Foot Left 3 View XRAY; Complete Time: 10:00 leoncio 12/22 08:34 Order name: Sed Rate; Complete Time: 09:50 leoncio 12/22 08:34 Order name: Wound Culture leoncio 12/22 08:34 Order name: Wound dressing: wet to dry; Complete Time: 09:43 leoncio 12/22 08:40 Order name: Glucose, Ancillary Testing; Complete Time: 09:50 EDMS EC:42 Rate is 91 beats/min. Rhythm is regular. QRS [place] is Normal. [place] interval is normal. QRS leoncio interval is normal. QT interval is normal. No Q waves. T waves are Normal. No ST changes noted. Clinical impression: Normal ECG and No evidence of ischemia. Interpreted by me. Reviewed by me. Administered Medications: 08:49 Drug: Zosyn 3.375 grams Route: IVPB; Infused Over: 60 mins; Site: left forearm; sv 09:45 Follow up: Response: No adverse reaction; IV Status: Completed infusion; IV Intake: sv 100ml Disposition: 12/23/19 10:05 Hospitalization ordered by Pepito Heredia for Inpatient Admission. Preliminary diagnosis are Cellulitis and acute lymphangitis of other parts of limb - foot, Edema, unspecified - venous insufficency, Tobacco abuse counseling, Tobacco use, Type 2 diabetes mellitus. - Bed requested for Telemetry/MedSurg (Inpatient). - Status is Inpatient Admission. sv - Condition is Fair. - Problem is an acute exacerbation. - Symptoms have worsened. Signatures: Dispatcher [employer] Kathy Brady RN RN sv Anderson, Corey, MD MD cha Botello, Elizabeth eb Corrections: (The following items were deleted from the chart) 09:43 08:15 Cardiac monitoring ordered. sv sv 11:17 10:05 Hospitalization Ordered by Pepito Heredia DO for Inpatient Admission. Preliminary eb diagnosis is Cellulitis and acute lymphangitis of other parts of limb - foot; Edema, unspecified - venous insufficency; Tobacco abuse counseling; Tobacco use. Bed requested for Telemetry/MedSurg (Inpatient). Status is Inpatient Admission. Condition is Fair. Problem is an acute exacerbation. Symptoms have worsened. leoncio 11:17 11:17 12/23/2019 10:05 Hospitalization Ordered by Pepito Heredia DO for Inpatient leoncio Admission. Preliminary diagnosis is Cellulitis and acute lymphangitis of other parts of limb - foot; Edema, unspecified - venous insufficency; Tobacco abuse counseling; Tobacco use. Bed requested for Telemetry/MedSurg (Inpatient). Status is Inpatient Admission. Condition is Fair. Problem is an acute exacerbation. Symptoms have worsened. eb 11:51 11:17 12/23/2019 10:05 Hospitalization Ordered by Pepito Heredia DO for Inpatient sv Admission. Preliminary diagnosis is Cellulitis and acute lymphangitis of other parts of limb - foot; Edema, unspecified - venous insufficency; Tobacco abuse counseling; Tobacco use; Type 2 diabetes mellitus. Bed requested for Telemetry/MedSurg (Inpatient). Status is Inpatient Admission. Condition is Fair. Problem is an acute exacerbation. Symptoms have worsened. leoncio
[2019-12-23] MEDS ORDERED: ACETAMINOPHEN 500 MG TAB PO PRN (11:48)
[2019-12-23] MEDS ORDERED: GLUCAGON 1 MG/VIAL IM PRN (11:48)
[2019-12-23] MEDS ORDERED: ONDANSETRON 4 MG/2 ML VIAL IV PRN (11:48)
[2019-12-23] MEDS: INSULIN -REGULAR HUMAN 50 UNIT/0.5 ML ML SQ SCH ×3 (11:48→20:44)
[2019-12-23] MEDS ORDERED: D50W 25 GM/50 ML SYRINGE/VIAL IV PRN (11:48)
[2019-12-23] MEDS ORDERED: ALBUTEROL INHALER 60 PUFF/8 GM IH PRN (11:48)
[2019-12-23] MEDS ORDERED: HYDROCODONE/APAP 7.5/325 MG TAB PO PRN (11:48)
[2019-12-23 12:18] VITALS: BMI 37.6
[2019-12-23] MEDS: CEFEPIME/SWI 1gm 10 ML IV SCH ×2 (13:29→20:44)
[2019-12-23] MEDS: VANCOMYCIN 2 GM in NA CHLORIDE 0.9% 500 ML IVPB SCH (13:29)
[2019-12-23 14:08] LABS: Urine Appearance CLEAR; Urine Bilirubin NEGATIVE (NEG); Urine Blood NEGATIVE (NEG); Urine Color YELLOW; Urine Glucose NEGATIVE (NEG); Urine Protein 1+ (NEG); Urine Specific Gravity 1.015 (1.005-1.030)
[2019-12-23 14:18] LABS: Urine Microscopic Reflex ORDER UMIC
[2019-12-23 14:50] LABS: Urine Bacteria <20 /HPF (NONE SEEN); Urine RBC <5 /HPF (NONE SEEN)
[2019-12-23 14:51] LABS: Urine Culture Reflex Order NOT NEEDED
--- NOTE | 2019-12-23 14:55 | P.HP ---
Certification for Inpatient Patient admitted to: Inpatient With expected LOS: >2 Midnights Patient will require the following post-hospital care: Home Health Services Practitioner: I am a practitioner with admitting privileges, knowledge of patient current condition, hospital course, and medical plan of care. Services: Services provided to patient in accordance with Admission requirements found in Title 42 Section 412.3 of the Code of Federal Regulations Patient History Date of Service: 12/23/19 Primary Care Provider: Jj Carvalho Reason for admission: Recurrent left foot infection History of Present Illness: 59-year-old male with history of diabetes, hypertension, hyperlipidemia, PVD, COPD, GERD, CAD and left foot infection. Patient was recently hospitalized on 11/11 through 11/17 left foot cellulitis and chronic ulcer. Patient was evaluated for osteomyelitis at that time. No osteomyelitis was identified. Patient had angiogram done. Severe peripheral vascular disease was noted. Patient was sent home with antibiotic therapy. Patient reports not taking medication due to cost of medication. Patient has been non compliant in the past. He came to the ER as erythema, pain to the left foot was worse. He reports this all started on Sunday. He denies any fever, chills, denies any significant chest pain or shortness of breath. Increasing edema to the lower extremity noted. Patient evaluated emergency room. White count 6.3, hemoglobin 15.5. Lactic acid 2.2. Pro calcitonin negative. Sodium 135, potassium 4.0. BUN of 10, creatinine 0.8 with a GFR greater than 90. Glucose 220. X-ray shows edema. No evidence of osteomyelitis. Patient admitted for further treatment. When I saw the patient ER, he did not appear septic. Patient with chronic ulcer to the left foot. Patient admits noncompliance. Patient reports only taking metformin. Patient was to follow up with cardiology as an outpatient and consider vascular surgery for femoral popliteal bypass. Patient still smokes regularly. Allergies No Known Allergies Allergy (Verified 11/12/19 16:51) Home Medications: Metformin ER [Glucophage ER*] 500 mg PO BID 12/23/19 - Past Medical/Surgical History Has patient received pneumonia vaccine in the past: No Diabetic: Yes -: Diabetes mellitus type 2 non-insulin dependent -: Hypertension -: COPD -: Diabetic neuropathy -: Hyperlipidemia -: Severe PVD -: CAD -: Tobacco abuse -: Noncompliance with medication -: Incision and drainage to left foot -: Cardiac Stents x2 Psychosocial/ Personal History: Patient lives at home - Family History Family History: Reviewed- Non-Contributory - Social History Smoking Status: Current every day smoker Alcohol use: No CD- Drugs: No Caffeine use: Yes Place of Residence: Home Review of Systems General: As per HPI Eyes: Unremarkable ENT: Unremarkable Respiratory: Unremarkable Cardiovascular: Unremarkable Gastrointestinal: Unremarkable Genitourinary: Unremarkable Musculoskeletal: As per HPI Integumentary: As per HPI Neurological: Unremarkable Lymphatics: Unremarkable Physical Examination - Vital Signs Temperature: 97.8 F Blood Pressure: 122/79 Pulse: 98 Respirations: 19 Pulse Ox (%): 99 - Physical Exam General: Alert, In no apparent distress, Oriented x3, Cooperative HEENT: Atraumatic Neck: Supple Respiratory: Clear to auscultation bilaterally, Normal air movement Cardiovascular: Normal pulses, Regular rate/rhythm Gastrointestinal: Normal bowel sounds, Soft and benign, Non-distended Musculoskeletal: Other (Erythema, swelling to the left lower extremity. There is a chronic ulcer 2 inches x 1 inch in diameter to the dorsum of the foot near the 3rd and 4th digit. No exudate noted. Erythema noted. Ulcer is foul smelling) Neurological: Normal speech, Normal strength at 5/5 x4 extr, Normal tone, Normal affect - Studies Laboratory Data (last 24 hrs) 12/23/19 08:25: PT 13.3 H, INR 1.13, APTT 32.6 12/23/19 08:25: WBC 6.3, Hgb 15.5, Hct 46.9, Plt Count 145 L 12/23/19 08:25: Sodium 135 L, Potassium 4.0, BUN 10, Creatinine 0.80, Glucose 220 H, Total Bilirubin 0.7, AST 26, ALT 34, Alkaline Phosphatase 104, Amylase 34, Lipase 124 Assessment and Plan - Plan Impression: Left recurrent diabetic foot cellulitis with chronic ulcer Diabetes mellitus type 2 with hyperglycemia non insulin-dependent Hypertension Hyperlipidemia Severe peripheral vascular disease CAD COPD Tobacco abuse Plan: Left recurrent diabetic foot cellulitis with chronic ulcer: Patient will be admitted for further evaluation and treatment. Will continue with cefepime and vancomycin. Blood cultures obtained. Will obtain wound culture. Will consult surgery to further evaluate and make recommendation. Patient may require debridement. Patient recently evaluated for osteomyelitis. Workup was unremarkable. Patient admits noncompliance with follow up and medication. Will discuss with social media manager about options of post hospital care and resources. Anticipate improvement over the next 3-4 days. Await further recommendations from surgery and infectious disease. Diabetes mellitus type 2 with hyperglycemia non insulin-dependent: Will provide sliding scale. Will review prior home medication. Will check A1c. Will monitor Accu-Cheks. Hypertension: Restart home medication Hyperlipidemia: Restart home medication Severe peripheral vascular disease: Restart home medication. Will provide DVT prophylaxis. Patient was to follow up with cardiology and CV surgery for possible bypass in the future. CAD: Continue medication COPD: Will provide medication Tobacco abuse: Will provide nicotine patch. Cessation addressed in detail. Discharge Plan: Home Plan to discharge in: Greater than 2 days - Advance Directives Does patient have a Living Will: No Does patient have a Durable POA for Healthcare: No - Code Status/Comfort Care Code Status Assessed: Yes (Patient is full code) Time Spent Managing Pts Care (In Minutes): 55
[2019-12-23] MEDS: METFORMIN ER 500 MG TAB PO SCH (16:27)
[2019-12-23] MEDS: TRAMADOL HCL 50 MG TAB PO PRN (17:27)
[2019-12-23] MEDS: ATORVASTATIN 40 MG TAB PO SCH (20:43)
[2019-12-23] MEDS: lisinopriL 10 MG TAB PO SCH (20:43)
[2019-12-23] MEDS: DULERA 100/5 (MOMETASONE/FORMOTEROL) INHALER IH SCH (20:43)
[2019-12-23] MEDS: INSULIN GLARGINE 100 UNITS/ML SQ SCH (20:44)
[2019-12-23] MEDS ORDERED: CEFEPIME 1 GM/VIAL IV SCH (21:00)
[2019-12-24] MEDS: VANCOMYCIN 2 GM in NA CHLORIDE 0.9% 500 ML IVPB SCH (01:40)
[2019-12-24 06:00] LABS: Absolute Lymphocytes (CBC) 0.9 K/uL (0.7-4.9); Basophils % 1.5 % (0-1.3); Hematocrit 43.7 % (39.6-49.0); Lymphocytes % 18.2 % (15.3-44.8); MPV 9.1 fL (7.6-11.3); RBC Red Blood Cell Count 4.43 M/uL (4.33-5.43)
[2019-12-24] MEDS: DULERA 100/5 (MOMETASONE/FORMOTEROL) INHALER IH SCH ×2 (06:07→20:55)
[2019-12-24 06:33] LABS: BUN Blood Urea Nitrogen 11 mg/dL (7-18); Bicarbonate 28 mmol/L (21-32); Glucose Level 171 mg/dL (74-106); Magnesium 2.1 mg/dL (1.8-2.4); Potassium 3.8 mmol/L (3.5-5.1); Sodium Level 140 mmol/L (136-145)
[2019-12-24] MEDS: INSULIN -REGULAR HUMAN 50 UNIT/0.5 ML ML SQ SCH ×4 (07:30→20:49)
[2019-12-24] MEDS: lisinopriL 10 MG TAB PO SCH ×2 (08:53→20:50)
[2019-12-24] MEDS: CEFEPIME/SWI 1gm 10 ML IV SCH ×2 (08:56→20:55)
[2019-12-24] MEDS: NICOTINE 21 MG/PAT TD SCH (08:56)
[2019-12-24] MEDS ORDERED: POTASSIUM CL SA 10 MEQ TAB PO ONE (09:00)
--- NOTE | 2019-12-24 10:57 | EKG ---
Test Date: 2019-12-23 Test Time: 09:11:51 Market Gardener: [place] MEASUREMENT RESULTS: Intervals: Rate: 91 IN: 140 QRSD: 74 QT: 362 QTc: 445 [place]: P: 59 IN: 140 QRS: 50 T: 74 INTERPRETIVE STATEMENTS: Normal sinus rhythm with sinus arrhythmia Possible Left atrial enlargement Low voltage QRS Borderline ECG Compared to ECG 11/12/2019 16:32:48 Sinus tachycardia no longer present Myocardial infarct finding no longer present Electronically Signed On 12-24-19 10:56:09 CDT by Rufus Redd
[2019-12-24] MEDS: ENOXAPARIN 40 MG/0.4 ML SQ SCH (11:37)
[2019-12-24] MEDS: METFORMIN ER 500 MG TAB PO SCH ×2 (11:37→17:14)
[2019-12-24] MEDS: ASPIRIN 81 MG CHEWABLE TABLET PO SCH (11:37)
[2019-12-24] MEDS: VANCOMYCIN 2.25 GM in NA CHLORIDE 0.9% 500 ML IVPB SCH (11:42)
[2019-12-24] MEDS: SODIUM HYPOCHLORITE 0.5% 473 ML TOP SCH ×2 (13:01→20:54)
[2019-12-24] MEDS: COLLAGENASE 30 GM OINTMENT TOP SCH (13:02)
--- NOTE | 2019-12-24 13:19 | P.CNS ---
Date of Consult: 12/24/19 Subjective: Patient is a 59 year old male who was seen a few weeks ago for chronic wound on left foot and cellulitis. It was determined that the patient did not have osteomyelitis at that time but did have severe PVD. Patient was sent home on antibiotics and reports not taking the medication due to cost. Patient now presents with erythema and worsening of left foot wound which I have been consulted for. Past medical/surgical history: Diabetes mellitus type 2, hypertension, COPD, diabetic neuropathy, hyperlipidemia, severe PVD, CAD, tobacco abuse, I&D to left foot, cardiac stents x2 Family history: noncontributory Social history: Current every day smoker, denies alcohol use Allergies: NKDA Active Medications Acetaminophen (Tylenol -Extra Strength) 500 mg PO Q4HP PRN PRN Reason: TEMP > 101' F Stop: 01/22/20 11:49 Hydrocodone Bitart/Acetaminophen ([place] 7.5/325 Mg) 1 tab PO Q6H PRN PRN Reason: Pain scale 5-7 (Moderate) Stop: 01/22/20 11:49 Albuterol Sulfate (Ventolin Inhaler) 2 puff IH Q6H PRN PRN Reason: SHORTNESS OF BREATH Stop: 01/22/20 11:49 Aspirin (Aspirin Chewable) 81 mg PO DAILY CHAYITO Stop: 01/23/20 09:01 Last Admin: 12/24/19 11:37 Dose: 81 mg Documented by: Atorvastatin Calcium (Lipitor) 40 mg PO BEDTIME CH[facility]O Stop: 01/22/20 21:01 Last Admin: 12/23/19 20:43 Dose: 40 mg Documented by: Collagenase (Santyl Ointment) 1 appl TOP DAILY CHAYITO Stop: 01/24/20 09:01 Last Admin: 12/24/19 13:02 Dose: 1 tiny Documented by: Dextrose (Dextrose 50% Syringe/Vial) 12.5 gm IV PRN PRN; Protocol PRN Reason: HYPOGLYCEMIA Stop: 01/22/20 11:49 Enoxaparin Sodium (Lovenox 40 Mg Inj) 40 mg SQ DAILY CHAYITO Stop: 01/23/20 09:01 Last Admin: 12/24/19 11:37 Dose: 40 mg Documented by: Glucagon (Glucagen) 1 mg IM 1X PRN; Protocol PRN Reason: HYPOGLYCEMIA Stop: 01/22/20 11:49 Cefepime HCl (Maxipime 1 Gm/10 Ml Ivp) 10 mls @ 200 mls/hr IV Q12HR [facility] Stop: 01/22/20 12:16 Last Admin: 12/24/19 08:56 Dose: 10 mls Documented by: Vancomycin HCl 2.25 gm/ Sodium (Chloride) 500 mls @ 250 mls/hr IVPB Q12H [facility]; Protocol Stop: 01/23/20 13:01 Last Admin: 12/24/19 11:42 Dose: 500 mls Documented by: Insulin Glargine (Lantus) 10 units SQ BEDTIME [facility] Stop: 01/22/20 21:01 Last Admin: 12/23/19 20:44 Dose: 10 units Documented by: Insulin Human Regular (Novolin -R) 0 unit SQ ACHS [facility]; Protocol Stop: 01/22/20 11:49 Last Admin: 12/24/19 11:30 Dose: Not Given Documented by: Lisinopril (Prinivil) 10 mg PO BID [facility] Stop: 01/22/20 21:01 Last Admin: 12/24/19 08:53 Dose: Not Given Documented by: Metformin HCl (Glucophage Er) 500 mg PO BIDWM [facility] Stop: 01/22/20 17:01 Last Admin: 12/24/19 11:37 Dose: 500 mg Documented by: Nicotine (Nicoderm) 21 mg TD DAILY [facility] Stop: 01/23/20 09:01 Last Admin: 12/24/19 08:56 Dose: 21 mg Documented by: Ondansetron HCl (Zofran) 4 mg IV Q6HP PRN PRN Reason: NAUSEA / VOMITING Stop: 01/22/20 11:49 Sodium Chloride (Normal Saline Flush) 10 ml IV BID [facility] Stop: 01/22/20 21:01 Last Admin: 12/24/19 08:56 Dose: 10 ml Documented by: Sodium Hypochlorite (Dakin's 0.5% Full Strength) 1 appl TOP BID [facility] Stop: 01/23/20 21:01 Last Admin: 12/24/19 13:01 Dose: 1 appl Documented by: Tramadol HCl (Ultram) 50 mg PO TID PRN PRN Reason: Pain scale 2-4 (Mild) Stop: 01/22/20 11:49 Last Admin: 12/23/19 17:27 Dose: 50 mg Documented by: ROS: CV: Denies chest pain RESP: Reports congestion in his chest : Denies dysuria GI: Denies nausea, diarrhea Skin: Reports worsening left foot wound Objective: Temp Pulse Resp BP Pulse Ox 97.1 F 95 H 20 113/65 97 12/24/19 08:00 12/24/19 08:53 12/24/19 08:00 12/24/19 08:53 12/24/19 08:00 Labs: Na 140, K 3.8, WBC 5.0 Foot xray 12/22: EXAM DESCRIPTION: RAD - Foot Left 3 View - 12/23/2019 9:35 am CLINICAL HISTORY: Pain;Swelling, history of foot infection subsequent to surgery in November. Site of wound or concern not detailed COMPARISON: Foot Left 3 View dated 11/12/2019 FINDINGS: No fracture, dislocation or periosteal reaction. No acute or destructive bony process. Wound is seen over the dorsum of the foot. There is no foreign body present. Small plantar spur is present. IMPRESSION: Soft tissue wound and soft tissue swelling present over the dorsum of the foot. Air density in the soft tissues is believed be part of the open wound and not air from a gas-forming organism. No bone destruction. Chest xray 12/22: EXAM DESCRIPTION: RAD - Chest Single View - 12/23/2019 9:35 am CLINICAL HISTORY: infection, hypertension COMPARISON: November 2019 TECHNIQUE: AP portable chest image was obtained 12/23/2019 9:35 am . FINDINGS: No acute lung parenchymal process. Detail is limited by portable technique and body habitus. Failure or volume overload are not suspected. Heart and vasculature are normal. No measurable pleural effusion and no pneumothorax. No acute bony abnormality seen. No acute aortic findings suspected. IMPRESSION: Limited portable study without acute cardiopulmonary finding. No significant change from comparison. ROS: General: Awake, alert, no acute distress CV: S1, S2 RESP: Rhonchi throughout lung garnica that clears with cough ABD: Round, nontender, bowel sounds present Extremities: 2+ pitting edema to bilateral lower extremities Skin: Left foot wound with large amount of slough, yvrose area with erythema and rolled edges and large amount of serous drainage Assessment and plan: Left foot DFU, recommend medihoney or santyl daily PVD, patient needs to follow up with vascular surgeon Diabetes mellitus Currently on Vancomycin and Cefepime, patient will need at least 4 weeks of antibiotics Will consult SS to discuss transfer to [place] for vascular intervention Educated the patient to keep leg elevated Will continue to monitor Thank you for consult Patient examined and discussed with Dr. Michael
--- NOTE | 2019-12-24 15:36 | P.PN ---
Subjective Date of Service: 12/24/19 Primary Care Provider: Jj Carvalho Chief Complaint: Recurrent left foot infection Subjective: Improving Physical Examination - Vital Signs Temperature: 97.6 F Blood Pressure: 127/73 Pulse: 97 Respirations: 20 Pulse Ox (%): 96 - Physical Exam General: Alert HEENT: Atraumatic Neck: Supple Respiratory: Clear to auscultation bilaterally, Normal air movement Cardiovascular: Normal pulses, Regular rate/rhythm Gastrointestinal: Normal bowel sounds, Soft and benign, Non-distended Integumentary: Other (Swelling to the left lower extremity improved. Patient walking. Less erythema noted.) - Studies Microbiology Data (last 24 hrs): 12/23/19 08:38 Wound - Left Foot Gram Stain - Final Medications List Reviewed: Yes Assessment & Plan Discharge Plan: Home Plan to discharge in: 48 Hours Physician Review Additional Text: Impression: Left recurrent diabetic foot cellulitis with chronic ulcer with noncompliance Diabetes mellitus type 2 with hyperglycemia non insulin-dependent Hypertension Hyperlipidemia Severe peripheral vascular disease CAD COPD Tobacco abuse Plan: Left recurrent diabetic foot cellulitis with chronic ulcer with non compliance: Continue current IV antibiotic therapy. Case discussed at length with surgery. No debridement needed at this time. Continue with wound care. Case also discussed with infectious disease and cardiology. Patient had abnormal angiogram of the lower extremities on the last hospitalization. Cardiology recommended bypass in the future. This is non emergent at this time. Compliance with antibiotic therapy, wound care address in detail with the patient. Patient understands that if he does not continue with medical regiment as an outpatient, he will likely lose his leg. Compliance addressed in detail. Anticipate improvement over the next 1-2 days. Anticipate discharge with oral antibiotic therapy and strict medication/wound care. Diabetes mellitus type 2 with hyperglycemia non insulin-dependent: Monitor Accu-Cheks. Provide sliding scale. Recent A1c 10.0 Hypertension: Continue home medication Hyperlipidemia: Continue home medication Severe peripheral vascular disease: Contained home medication. Will provide DVT prophylaxis. Patient was to follow up with cardiology and CV surgery for possible bypass in the future. Bypass is non emergent. This was discussed in detail with cardiology. CAD: Continue medication COPD: Will provide medication Tobacco abuse: Will provide nicotine patch. Cessation addressed in detail. Time Spent Managing Pts Care (In Minutes): 55
[2019-12-24] MEDS: TRAMADOL HCL 50 MG TAB PO PRN (17:13)
[2019-12-24] MEDS: INSULIN GLARGINE 100 UNITS/ML SQ SCH (20:49)
[2019-12-24] MEDS: ATORVASTATIN 40 MG TAB PO SCH (20:50)
[2019-12-25] MEDS: VANCOMYCIN 2.25 GM in NA CHLORIDE 0.9% 500 ML IVPB SCH (00:15)
--- NOTE | 2019-12-25 00:36 | CON ---
Date of Consultation: 12/24/2019 Reason For Consultation: Severe peripheral arterial disease. History Of Present Illness: Mr. Sahu is 59. I saw him early in November for cellulitis and left foot w ound without any osteomyelitis that was being treated with antibiotics. He does have a history of mi ld chronic systolic congestive heart failure with an ejection fraction about 44%. Has a history of t obacco use, CAD status post stents. He has a history of neuropathy, diabetes, hypertension, and dysl ipidemia, came in with another episode of cellulitis. No cardiac symptoms reported. Angiography whi ch was done in November revealed normal iliacs, normal aorta, normal renals, but he had completely occlude d SFAs from the ostium all the way to the popliteal, but they both reconstituted. I recommended that he have femoral-popliteal bypass surgery, but no appointment with surgeon have been made by him. Allergies: NONE. Review of Systems: Negative. Social History: Positive for tobacco use. Medications: At home include metformin. He was supposed to take antibiotics, but he did not because he could not afford it. Physical Examination: Vital Signs: Stable, afebrile. HEENT: Negative. Neck: Supple with no bruit. Chest: Clear. Cardiac: Reveals regular rhythm and rate. No murmurs, gallops, or rubs. Abdomen: Benign, but obese. Extremities: Revealed left foot cellulitis. Diagnostic Data: EKG showed low voltage. Chest x-ray was negative. Recent echo showed an ejection fraction of 44%. Diagnostic data is otherwise unremarkable. Impression And Plan: Severe peripheral artery disease. Patient needs femoral-popliteal surgery bila terally, preferably on the left first. He needs to continue antibiotics for his cellulitis. He is t o make an appointment with vascular surgery as soon as possible. His other problems including chroni c systolic congestive heart failure, CAD status post stent, diabetes, hypertension, and dyslipidemia seem to be well controlled. I will continue to follow him. I will discuss the case further with him and with Dr. Eddy. NUPUR/JOANA Voice ID: [id number] Report ID: [id number]
[2019-12-25 06:19] LABS: Absolute Lymphocytes (CBC) 0.9 K/uL (0.7-4.9); Basophils % 1.2 % (0-1.3); Hematocrit 48.2 % (39.6-49.0); Lymphocytes % 13.6 % (15.3-44.8); MPV 9.9 fL (7.6-11.3); RBC Red Blood Cell Count 4.88 M/uL (4.33-5.43)
[2019-12-25 06:24] LABS: BUN Blood Urea Nitrogen 10 mg/dL (7-18); Bicarbonate 26 mmol/L (21-32); Glucose Level 180 mg/dL (74-106); Magnesium 2.1 mg/dL (1.8-2.4); Sodium Level 135 mmol/L (136-145)
[2019-12-25] MEDS ORDERED: POTASSIUM CL SA 10 MEQ TAB PO ONE (07:25)
[2019-12-25] MEDS: INSULIN -REGULAR HUMAN 50 UNIT/0.5 ML ML SQ SCH ×2 (07:30→11:30)
[2019-12-25] MEDS: DULERA 100/5 (MOMETASONE/FORMOTEROL) INHALER IH SCH (07:45)
[2019-12-25] MEDS: NICOTINE 21 MG/PAT TD SCH (07:46)
[2019-12-25] MEDS: COLLAGENASE 30 GM OINTMENT TOP SCH (07:46)
[2019-12-25] MEDS: CEFEPIME/SWI 1gm 10 ML IV SCH (07:47)
[2019-12-25] MEDS: SODIUM HYPOCHLORITE 0.5% 473 ML TOP SCH (07:47)
[2019-12-25 08:38] VITALS: O2SAT 96
[2019-12-25] MEDS: ASPIRIN 81 MG CHEWABLE TABLET PO SCH (09:41)
[2019-12-25] MEDS: METFORMIN ER 500 MG TAB PO SCH (09:41)
[2019-12-25] MEDS: ENOXAPARIN 40 MG/0.4 ML SQ SCH (09:41)
[2019-12-25] MEDS: lisinopriL 10 MG TAB PO SCH (09:41)
--- NOTE | 2019-12-25 11:04 | P.DS ---
Admission Date: 12/23/19 Discharge Date: 12/25/19 Primary Care Provider: [facility] Disposition: ROUTINE DISCHARGE Discharge Condition: GOOD Reason for Admission: Recurrent left foot infection Consultations: Surgery-Dr. Michel Cardiology-Dr. Rded Procedures: Xray: FINDINGS: No fracture, dislocation or periosteal reaction. No acute or destructive bony process. Wound is seen over the dorsum of the foot. There is no foreign body present. Small plantar spur is present. IMPRESSION: Soft tissue wound and soft tissue swelling present over the dorsum of the foot. Air density in the soft tissues is believed be part of the open wound and not air from a gas-forming organism. No bone destruction. Medical Problem List: Left recurrent diabetic foot cellulitis with chronic ulcer with noncompliance Diabetes mellitus type 2 with hyperglycemia non insulin-dependent Hypertension Hyperlipidemia Severe peripheral vascular disease CAD COPD Tobacco abuse Brief History of Present Illness: 59-year-old male with history of diabetes, hypertension, hyperlipidemia, PVD, COPD, GERD, CAD and left foot infection. Patient was recently hospitalized on 11/11 through 11/17 left foot cellulitis and chronic ulcer. Patient was evaluated for osteomyelitis at that time. No osteomyelitis was identified. Patient had angiogram done. Severe peripheral vascular disease was noted. Patient was sent home with antibiotic therapy. Patient reports not taking medication due to cost of medication. Patient has been non compliant in the past. He came to the ER as erythema, pain to the left foot was worse. He reports this all started on Sunday. He denies any fever, chills, denies any significant chest pain or shortness of breath. Increasing edema to the lower extremity noted. Patient evaluated emergency room. White count 6.3, hemoglobin 15.5. Lactic acid 2.2. Pro calcitonin negative. Sodium 135, potassium 4.0. BUN of 10, creatinine 0.8 with a GFR greater than 90. Glucose 220. X-ray shows edema. No evidence of osteomyelitis. Patient admitted for further treatment. When I saw the patient ER, he did not appear septic. Patient with chronic ulcer to the left foot. Patient admits noncompliance. Patient reports only taking metformin. Patient was to follow up with cardiology as an outpatient and consider vascular surgery for femoral popliteal bypass. Patient still smokes regularly. Hospital Course: Patient presented with left recurrent diabetic foot cellulitis with chronic ulcer. Patient admitted multiple times for this. Patient admits to noncompliance with wound care and antibiotic therapy due to his financial stat us. Patient was admitted for further evaluation. X-ray showed no osteomyelitis. Surgery was consulted for further recommendation. Surgery recommended no further intervention at this time. Wound culture was positive for Klebsiella and Staph aureus. Cardiology was also consulted to further evaluate. Patient recently hospitalized and found to have severe peripheral vascular disease. It was recommended at that time that patient would require fem-pop bypass in the future. At discharge patient will continue with Bactrim DS 1 pill twice daily and doxycycline 100 mg 1 pill twice daily for 10 days to cover the cellulitis. Patient will continue with current wound care as recommended by surgery. Patient to clean area with normal saline and place santyl daily. Recommend to elevate leg when sitting or lying. It is recommended that he follow up with cardiology to further evaluate his peripheral vascular disease. Patient will require CV surgery evaluation and treatment in the near future. Patient would benefit with high-level of care if hospitalization was required in the future to address his multiple needs. Patient with diabetes mellitus type 2 with hyperglycemia. Recent A1c 10.0. Insulin was started to get better control of his diabetes. At discharge patient will continue with Lantus 10 units subcu at bedtime and metformin 500 mg twice daily. Recommend to maintain blood sugars less 140 fasting and less than 200 after meals. Further adjustment can be done by his PCP. Patient with hypertension. Patient currently on lisinopril. At discharge he will continue with lisinopril 10 mg 1 pill twice daily. Recommend to maintain blood pressure less 150/80. Further adjustment can be done by his PCP. Patient with hyperlipidemia and peripheral vascular disease as stated above. At discharge he will continue with aspirin 81 mg daily and Lipitor 40 mg daily. Patient with underlying COPD. At discharge patient will be provided Dulera 2 puffs twice daily and albuterol 2 puffs 3 times a day as needed for shortness of breath. Patient with tobacco abuse. Recommend tobacco cessation. Will provide nicotine patch daily. This can be further addressed by his PCP. Vital Signs/Physical Exam: Temp Pulse Resp BP Pulse Ox 96.7 F L 98 H 18 135/91 H 97 12/25/19 08:00 12/25/19 09:41 12/25/19 08:00 12/25/19 09:41 12/25/19 08:00 General: Alert, In no apparent distress, Oriented x3 HEENT: Atraumatic Neck: Supple Respiratory: Clear to auscultation bilaterally, Normal air movement Cardiovascular: Normal pulses, Regular rate/rhythm Gastrointestinal: Normal bowel sounds, Soft and benign, Non-distended Musculoskeletal: No erythema, No tenderness, No warmth Integumentary: Other (Bandage to the left foot. ) Neurological: Normal speech, Normal strength at 5/5 x4 extr, Normal tone Laboratory Data at Discharge: WBC 6.3 K/uL (4.3-10.9) D 12/25/19 05:30 Hgb 15.6 g/dL (13.6-17.9) 12/25/19 05:30 Hct 48.2 % (39.6-49.0) 12/25/19 05:30 Plt Count 141 K/uL (152-406) L 12/25/19 05:30 PT 13.3 SECONDS (9.5-12.5) H 12/23/19 08:25 INR 1.13 12/23/19 08:25 APTT 32.6 SECONDS (24.3-36.9) 12/23/19 08:25 Sodium 135 mmol/L (136-145) L 12/25/19 05:30 Potassium 4.0 mmol/L (3.5-5.1) 12/25/19 05:30 BUN 10 mg/dL (7-18) 12/25/19 05:30 Creatinine 0.79 mg/dL (0.55-1.3) 12/25/19 05:30 Glucose 180 mg/dL (74-106) H 12/25/19 05:30 Magnesium 2.1 mg/dL (1.8-2.4) 12/25/19 05:30 Total Bilirubin 0.7 mg/dL (0.2-1.0) 12/23/19 08:25 AST 26 U/L (15-37) 12/23/19 08:25 ALT 34 U/L (12-78) 12/23/19 08:25 Alkaline Phosphatase 104 U/L (45-117) 12/23/19 08:25 Amylase 34 U/L (25-115) 12/23/19 08:25 Lipase 124 U/L (73-393) 12/23/19 08:25 Home Medications: RX: Aspirin Chewable [Aspirin Chewable*] 81 mg PO DAILY #90 tab.chew 12/25/19 RX: Atorvastatin Calcium [Lipitor] 40 mg PO BEDTIME #30 tab 12/25/19 RX: Collagenase [Santyl Ointment*] 1 appl TOP DAILY #1 tube 12/25/19 RX: Doxycycline Hyclate 100 mg PO BID #20 tablet 12/25/19 RX: Insulin Glargine Human [Lantus*] 10 units SQ BEDTIME #1 bottle 12/25/19 RX: Metformin ER [Glucophage ER*] 500 mg PO BID #60 tab.sa 12/25/19 RX: Mometasone/Formoterol [Dulera 100 Mcg/5 Mcg Inhaler] 2 puff IH BID #1 inhaler 12/25/19 RX: Nicotine [Nicoderm*] 21 mg TD DAILY #30 patch.td24 12/25/19 RX: traMADol HCL [Ultram*] 50 mg PO TID PRN #15 tab 12/25/19 Sulfamethoxazole/Trimethoprim [Bactrim Ds Tablet] 1 each PO BID #20 tablet 12/25/19 New Medications: RX: Aspirin Chewable [Aspirin Chewable*] 81 mg PO DAILY #90 tab.chew Sulfamethoxazole/Trimethoprim [Bactrim Ds Tablet] 1 each PO BID #20 tablet RX: Doxycycline Hyclate 100 mg PO BID #20 tablet RX: Mometasone/Formoterol [Dulera 100 Mcg/5 Mcg Inhaler] 2 puff IH BID #1 inhaler RX: Metformin ER [Glucophage ER*] 500 mg PO BID #60 tab.sa RX: Insulin Glargine Human [Lantus*] 10 units SQ BEDTIME #1 bottle RX: Atorvastatin Calcium [Lipitor] 40 mg PO BEDTIME #30 tab RX: Nicotine [Nicoderm*] 21 mg TD DAILY #30 patch.td24 RX: Collagenase [Santyl Ointment*] 1 appl TOP DAILY #1 tube RX: traMADol HCL [Ultram*] 50 mg PO TID PRN #15 tab PRN Reason: Pain Scale 2-4 (Mild) Patient Discharge Instructions: 1. Recommend to establish care with a PCP and to follow up this hospitalization. 2. Patient presented with left recurrent diabetic foot cellulitis with chronic ulcer. Patient admitted multiple times for this. Patient admits to noncompliance with wound care and antibiotic therapy due to his financial status. Patient was admitted for further evaluation. X-ray showed no osteomyelitis. Surgery was consulted for further recommendation. Surgery recommended no further intervention at this time. Wound culture was positive for Klebsiella and Staph aureus. Cardiology was also consulted to further evaluate. Patient recently hospitalized and found to have severe peripheral vascular disease. It was recommended at that time that patient would require fem-pop bypass in the future. At discharge patient will continue with Bactrim DS 1 pill twice daily and doxycycline 100 mg 1 pill twice daily for 10 days to cover the cellulitis. Patient will continue with current wound care as recommended by surgery. Patient to clean area with normal saline and place santyl daily. Recommend to elevate leg when sitting or lying. It is recommended that he follow up with cardiology to further evaluate his peripheral vascular disease. Patient will require CV surgery evaluation and treatment in the near future. Patient would benefit with high-level of care if hospitalization was required in the future to address his multiple needs. 3. Patient with diabetes mellitus type 2 with hyperglycemia. Recent A1c 10.0. Insulin was started to get better control of his diabetes. At discharge patient will continue with Lantus 10 units subcu at bedtime and metformin 500 mg twice daily. Recommend to maintain blood sugars less 140 fasting and less than 200 after meals. Further adjustment can be done by his PCP. 4. Patient with hypertension. Patient currently on lisinopril. At discharge he will continue with lisinopril 10 mg 1 pill twice daily. Recommend to maintain blood pressure less 150/80. Further adjustment can be done by his PCP. 5. Patient with hyperlipidemia and peripheral vascular disease as stated above. At discharge he will continue with aspirin 81 mg daily and Lipitor 40 mg daily. 6. Patient with underlying COPD. At discharge patient will be provided Dulera 2 puffs twice daily and albuterol 2 puffs 3 times a day as needed for shortness of breath. 7. Patient with tobacco abuse. Recommend tobacco cessation. Will provide nicotine patch daily. This can be further addressed by his PCP. Diet: ADA Activity: Fall precautions Time spent managing pt's care (in minutes): 55
[2019-12-25 12:31] VITALS: BP 173/102; TEMP 97
== END 2019-12-25 12:20 | disposition home or self-care (01) | DRG 638 ==
LOC: ER 07:54 → ERHOLD 10:50 → 2ND 11:48
PROVIDERS: ADMIT Family Medicine; ATTEND Family Medicine
DX: E11.628 Type 2 diabetes mellitus with other skin complications (principal); L03.116 Cellulitis of left lower limb; I50.22 Chronic systolic (congestive) heart failure; E78.5 Hyperlipidemia, unspecified; E11.51 Type 2 diabetes mellitus with diabetic peripheral angiopathy without gangrene; J44.9 Chronic obstructive pulmonary disease, unspecified; K21.9 Gastro-esophageal reflux disease without esophagitis; I25.10 Atherosclerotic heart disease of native coronary artery without angina pectoris; Z91.120 Patient's intentional underdosing of medication regimen due to financial hardship; Z79.84 Long term (current) use of oral hypoglycemic drugs; E11.40 Type 2 diabetes mellitus with diabetic neuropathy, unspecified; Z95.5 Presence of coronary angioplasty implant and graft; F17.200 Nicotine dependence, unspecified, uncomplicated; E11.621 Type 2 diabetes mellitus with foot ulcer; L97.529 Non-pressure chronic ulcer of other part of left foot with unspecified severity; Z20.828 Contact with and (suspected) exposure to other viral communicable diseases; E11.65 Type 2 diabetes mellitus with hyperglycemia; Z91.14 Patient's other noncompliance with medication regimen; B96.1 Klebsiella pneumoniae [K. pneumoniae] as the cause of diseases classified elsewhere; B95.61 Methicillin susceptible Staphylococcus aureus infection as the cause of diseases classified elsewhere; I11.0 Hypertensive heart disease with heart failure
CPT/HCPCS: 36415; 71045; 80048; 80076; 80202; 81003; 81015; 82150; 82550; 82553; 82947; 83605; 83690; 83735; 84145; 84484; 85025; 85610; 85652; 85730; 87040; 87070; 87077; 87186; 87205; 93005; 96365; 99285; J0692; J1650; J1815; J2543; J3590; J7040; J7606; U0002

== ENCOUNTER 2020-02-11 05:25 | Inpatient (IN) | payer OTHER ==
--- OUTSIDE RECORDS SUMMARY | 2020-02-11 05:27 | XMS REPORT | Continuity of Care Document ---
:1960 Author Organization [facility] t Address [address] [place] [address] [address]. Estrada [address] [place] [address] Care Team Providers Name Role Phone Unavailable Unavailable Unavailable Problems This patient has no known problems. Allergies, Adverse Reactions, Alerts This patient has no known allergies or adverse reactions. Medications This patient has no known medications. Procedures This patient has no known procedures. Results This patient has no known results.
[2020-02-11 06:47] LABS: Absolute Lymphocytes (CBC) 0.9 K/uL (0.7-4.9); Basophils % 1.2 % (0-1.3); Hematocrit 44.6 % (39.6-49.0); MPV 9.1 fL (7.6-11.3); RBC Red Blood Cell Count 4.52 M/uL (4.33-5.43)
[2020-02-11 06:48] LABS: Albumin 3.1 g/dL (3.4-5.0); Bilirubin Total 0.6 mg/dL (0.2-1.0); Potassium 4.3 mmol/L (3.5-5.1); Protein, Total 7.4 g/dL (6.4-8.2)
--- NOTE | 2020-02-11 08:29 | RAD REPORT ---
EXAM DESCRIPTION: CT - Abdomen Pelvis W Contrast - 02/11/2020 8:08 am CLINICAL HISTORY: Abdominal pain COMPARISON: none. TECHNIQUE: Computed axial tomography of the abdomen pelvis was obtained. 100 cc Isovue-300 was admin istered intravenously. Oral contrast was not requested which limits evaluation of bowel. All CT scans are performed using dose optimization technique as appropriate and may include automated exposure control or mA/KV adjustment according to patient size. FINDINGS: The liver, pancreas, adrenal and kidneys appear unremarkable. Splenic granulomata There is no evidence of diverticulitis. Normal appendix Diffuse edema within the subcutaneous tissues. Small amount of ascites within the abdomen and pelvis IMPRESSION: Small amount of ascites Diffuse edema within the subcutaneous tissues
--- NOTE | 2020-02-11 09:03 | RAD REPORT ---
EXAM DESCRIPTION: USExtrem Venous W Compress Bil02/11/2020 8:34 am CLINICAL HISTORY: Bilateral leg swelling COMPARISON: none FINDINGS: The common femoral, superficial femoral, and popliteal veins bilaterally are compressible and demonstrate augmentation. Doppler demonstrates good flow. IMPRESSION: No evidence of deep venous thrombosis involving either lower extremity.
--- NOTE | 2020-02-11 10:02 | EDPHYS ---
Physician Documentation [facility] Name: Clifton Sahu Jr Age: 59 yrs Sex: Male : 1960 Arrival Date: 02/11/2020 Time: 05:35 Bed 15 Private MD: ED Physician Vern Lozoya HPI: 02/10 06:14 This 59 yrs old Male presents to ER via EMS with complaints of Wound jmm Infection. 06:14 the patient presents with a swollen area of the right leg and left leg. Onset: The jmm symptoms/episode began/occurred at an unknown time. Possible cause(s): unknown. Associated signs and symptoms: Pertinent positives: swelling, Pertinent negatives: fever, shortness of breath. Modifying factors: the symptoms are alleviated by nothing, the symptoms are aggravated by nothing. This is a 59 year old male with a history of DM, HTN that presents to the ED with complaints of redness and swelling for an unknown period of time. Denies vomiting, fever, abdominal pain. . Historical: - Allergies: 05:42 No Known Allergies; mt2 - PMHx: 05:42 Diabetes - NIDDM; Hypertension; mt2 - Immunization history:: Adult Immunizations not up to date. - Social history:: Smoking status: Patient reports the use of cigarette tobacco products, smokes one-half pack cigarettes per day, Patient/guardian denies using alcohol, street drugs. ROS: 06:14 Constitutional: Negative for fever, chills, and weight loss, Cardiovascular: Negative jmm for chest pain, palpitations, and edema, Respiratory: Negative for shortness of breath, cough, wheezing, and pleuritic chest pain. 06:14 Abdomen/GI: Positive for abdominal distension. 06:14 MS/extremity: Positive for swelling. 06:14 Skin: Positive for erythema. 06:14 All other systems are negative. Exam: 06:14 Constitutional: This is a well developed, well nourished patient who is awake, alert, jmm and in no acute distress. Head/Face: atraumatic. Eyes: EOMI, no conjunctival erythema appreciated ENT: Moist Mucus Membranes Neck: Trachea midline, Supple Chest/axilla: Normal chest wall appearance and motion. Cardiovascular: Regular rate and rhythm. No edema appreciated Respiratory: Normal respirations, no respiratory distress appreciated 06:14 Abdomen/GI: Inspection: distension, Bowel sounds: normal, Palpation: soft, nontender. 06:14 Skin: erythema and induration noted to the lower extremities bilaterally. 06:14 Neuro: Orientation: is normal, Mentation: is normal, Memory: is normal. 06:14 Psych: Behavior/mood is pleasant, cooperative. Vital Signs: 05:37 BP 125 / 94; Pulse 101; Resp 16; Temp 98.0; Pulse Ox 98% ; Weight 117.93 kg; Pain 8/10; mt2 07:08 BP 118 / 87; Pulse 95; Resp 18; Pulse Ox 98% on R/A; jr10 09:19 BP 147 / 108; Pulse 94; Resp 20; Pulse Ox 96% on R/A; jr10 12:21 BP 145 / 101; Pulse 100; Resp 20; Temp 98.8(O); Pulse Ox 98% on R/A; jr10 MDM: 06:[address] [facility] 09:59 Data reviewed: vital signs, nurses notes. Counseling: I had a detailed discussion with amita the patient and/or guardian regarding: the historical points, exam findings, and any diagnostic results supporting the discharge/admit diagnosis, lab results, radiology results, the need for further work-up and treatment in the hospital. ED course: I discussed the patient with Dr. Lauren whom accepted the patient for admission. . 02/10 06:21 Order name: CBC with Diff; Complete Time: 07:05 [facility] 02/10 06:21 Order name: CMP; Complete Time: 07:05 [facility] 02/10 06:21 Order name: Procalcitonin; Complete Time: 07:54 [facility] 02/10 06:21 Order name: Lipase; Complete Time: 07:05 [facility] 02/10 06:21 Order name: AMMONIA; Complete Time: 07:05 [facility] 02/10 06:21 Order name: Lactate; Complete Time: 07:05 [facility] 02/10 06:21 Order name: Blood Culture Adult (2) [facility] 02/10 06:21 Order name: ETOH Level; Complete Time: 07:34 [facility] 02/10 07:07 Order name: CT Abd/Pelvis - IV Contrast Only; Complete Time: 08:37 [facility] 02/10 08:38 Order name: BNP; Complete Time: 09:00 [facility] 02/10 08:59 Order name: Wound Culture ss 02/10 09:04 Order name: Troponin (emerg Dept Use Only) [facility] 02/10 09:04 Order name: Troponin (Emerg Dept Use Only); Complete Time: 09:46 [facility] 02/10 06:21 Order name: Saline Lock; Complete Time: 06:46 [facility] 02/10 07:55 Order name: US Extremity Venous W Compression Gabo; Complete Time: 09:03 [facility] 02/10 08:38 Order name: Chest Single View XRAY; Complete Time: 10:43 [facility] 02/10 09:47 Order name: EKG - Nurse/Tech; Complete Time: 10:18 [facility] Administered Medications: 10:12 Drug: Lasix 40 mg Route: IVP; Site: right antecubital; tw2 11:25 Follow up: Response: No adverse reaction jr10 Disposition: 02/11/20 10:01 Hospitalization ordered by [facility] for Observation. Preliminary diagnosis is Unspecified combined systolic (congestive) and diastolic (congestive) heart failure. - Bed requested for Telemetry/MedSurg (observation). - Status is Observation. jr10 - Condition is Stable. - Problem is new. - Symptoms are unchanged. Addendum: 02/14/2020 07:11 Co-signature as Attending Physician, Vern Lozoya MD. r n Signatures: Dispatcher [employer] [facility] Jacklyn Alvarado, RN RN kl Zack Guerrero PA PA [facility] Vern Lozoya MD MD rn Wise, Tara, RN RN tw2 Angelica Brambila RN RN mt2 Peggy Omalley RN RN jr10 Corrections: (The following items were deleted from the chart) 02/10 11:00 06:40 Wound Culture+BA.LAB.BRZ ordered. [facility] 11:45 10:01 Hospitalization Ordered by [facility] Leon[facility] YANEZ for Observation. Preliminary diagnosis is Unspecified combined systolic (congestive) and diastolic (congestive) heart failure. Bed requested for Telemetry/MedSurg (observation). Status is Observation. Condition is Stable. Problem is new. Symptoms are unchanged. [facility] 13:16 11:45 02/11/2020 10:01 Hospitalization Ordered by [facility] YANEZ for Observation. jr10 Preliminary diagnosis is Unspecified combined systolic (congestive) and diastolic (congestive) heart failure. Bed requested for Telemetry/MedSurg (observation). Status is Observation. Condition is Stable. Problem is new. Symptoms are unchanged. kl
--- NOTE | 2020-02-11 10:02 | ER ---
Nurse's Notes [facility] Name: Clifton Sahu Jr Age: 59 yrs Sex: Male : 1960 Arrival Date: 02/11/2020 Time: 05:35 Bed 15 Private MD: Diagnosis: Unspecified combined systolic (congestive) and diastolic (congestive) heart failure Presentation: 02/10 05:37 Chief complaint: EMS states: BIBA FROM [facility] FOR MULTIPLE DIABETIC WOUNDS. ON mt2 LEFT FOOT S/P I \\T\\D WITH YELLOW DRAINAGE. MULTIPLE STASIS ULCER ON DEDRA LE WITH DRAINAGE. PT NON COMPLIANT WITH DM TXABD DISTENDED AND FIRM THOUGH DENIES SYMPTOMS. Coronavirus screen: Client denies travel out of the [place] in the last 14 days. At this time, the client does not indicate any symptoms associated with coronavirus-19. Ebola Screen: No symptoms or risks identified at this time. Initial Sepsis Screen: Does the patient meet any 2 criteria? No. Patient's initial sepsis screen is negative. Does the patient have a suspected source of infection? Yes: Other: WOUND. Risk Assessment: Do you want to hurt yourself or someone else? Patient reports no desire to harm self or others. Onset of symptoms is unknown. Care prior to arrival: WOUND DRESSING. 05:37 Method Of Arrival: EMS: [facility] mt2 05:37 Acuity: MOLLY 3 mt2 05:43 Chief complaint:. Chief complaint:. Chief complaint:. mt2 Triage Assessment: 05:50 General: Appears in no apparent distress. Behavior is cooperative. Pain: Complains of mt2 pain in left leg. EENT: No deficits noted. Neuro: No deficits noted. Cardiovascular: No deficits noted. Respiratory: No deficits noted. GI: Abdomen is round distended. : No deficits noted. Derm: Wound noted lateral aspect of left foot Wound is s/p iI\\T\\D area with yellow drainage and foul smell. Historical: - Allergies: 05:42 No Known Allergies; mt2 - PMHx: 05:42 Diabetes - NIDDM; Hypertension; mt2 - Immunization history:: Adult Immunizations not up to date. - Social history:: Smoking status: Patient reports the use of cigarette tobacco products, smokes one-half pack cigarettes per day, Patient/guardian denies using alcohol, street drugs. Screenin:44 Abuse screen: Denies threats or abuse. Nutritional screening: No deficits noted. mt2 Tuberculosis screening: No symptoms or risk factors identified. Fall Risk None identified. Assessment: 05:40 Musculoskeletal: Swelling present in right leg and left leg. mt2 06:13 Derm: Wound noted right leg Wound is MULTIPLE STASIS ULCERS WITH DRAINAGE. mt2 07:15 Reassessment: No changes from previously documented assessment. Patient is alert, mt2 oriented x 3, equal unlabored respirations, skin warm/dry/pink. Patient denies pain at this time. General: Appears in no apparent distress. Behavior is cooperative. 07:30 Reassessment: Patient and/or family updated on plan of care and expected duration. Pain jr10 level reassessed. Patient is alert, oriented x 3, equal unlabored respirations, skin warm/dry/pink. Pain: Denies pain. Neuro: No deficits noted. Cardiovascular: No deficits noted. Respiratory: No deficits noted. Airway is patent Respiratory effort is even, unlabored, Respiratory pattern is regular, symmetrical, Breath sounds with crackles. GI: No deficits noted. : No deficits noted. Derm: Wound noted. 11:22 Reassessment: Pt given urinal and directed not to get out of bed due to fall risk. Pt jr10 uncooperative, pulling monitor leads off and stating "this isn't going to work I have to go to a real bathroom!" Attempted to place bedside commode in room and pt refused to utilize. Vital Signs: 05:37 BP 125 / 94; Pulse 101; Resp 16; Temp 98.0; Pulse Ox 98% ; Weight 117.93 kg; Pain 8/10; mt2 07:08 BP 118 / 87; Pulse 95; Resp 18; Pulse Ox 98% on R/A; jr10 09:19 BP 147 / 108; Pulse 94; Resp 20; Pulse Ox 96% on R/A; jr10 12:21 BP 145 / 101; Pulse 100; Resp 20; Temp 98.8(O); Pulse Ox 98% on R/A; jr10 ED Course: 05:35 Patient arrived in ED. lp1 05:36 Angelica Brambila, RN is Primary Nurse. mt2 05:42 Triage completed. mt2 05:42 Arm band placed on right wrist. mt2 05:44 Bed in low position. Call light in reach. Side rails up X 1. mt2 06:02 Inserted saline lock: 20 gauge in right antecubital area, using aseptic technique. mt2 Blood collected. 06:03 Initial lab(s) drawn, by me, sent to lab. held in ED. First set of blood cultures drawn mt2 by me. 06:09 Zack Guerrero PA is PHCP. jm 06:09 Vern Lozoya MD is Attending Physician. jmm 07:[address] via stretcher. jr10 07:34 Primary Nurse role handed off by Angelica Brambila RN jr10 07:34 Peggy Omalley RN is Primary Nurse. jr10 08:08 CT Abd/Pelvis - IV Contrast Only In Process Unspecified. EDMS 08:34 US Extremity Venous W Compression Dedra In Process Unspecified. EDMS 08:35 Patient moved back from ultrasound. jr10 09:01 Chest Single View XRAY In Process Unspecified. EDMS 09:43 No apparent distress. Awaiting lab results, Awaiting radiology results. Awaiting [facility] disposition. 10:00 Prince Lauren MD is Hospitalizing Provider. [facility] 11:30 Wound care: to venous stasis ulcers to dedra lower extremites was dressed with stefano Watts clinrylan, ABD pads, wet to dry dressing placed to wound on left foot, Patient tolerated well. 13:05 No provider procedures requiring assistance completed. Patient admitted, IV remains in jr10 place. intact, No redness/swelling at site. Administered Medications: 10:12 Drug: Lasix 40 mg Route: IVP; Site: right antecubital; tw2 11:25 Follow up: Response: No adverse reaction [facility] Outcome: 10:01 Decision to Hospitalize by Provider. [facility] 13:05 Admitted to Med/surg accompanied by tech, via wheelchair, room 208, with chart, Report jr10 called to GRETCHEN NINO 13:05 Condition: stable 13:05 Instructed on the need for admit. 13:16 Patient left the ED. jr10 Signatures: Dispatcher [employer] EDMS Zack Guerrero PA PA [facility] Margarita Rod RN RN lp1 Ashlie Pulliam RN RN tw2 Angelica Brambila RN RN mt2 Peggy Omalley GRETCHEN RN jr10 Corrections: (The following items were deleted from the chart) 05:44 05:37 Chief complaint: EMS states: BIBA FROM [facility] FOR MULTIPLE DIABETIC mt2 WOUNDS. ON LEFT FOOT S/P I \\T\\D WITH YELLOW DRAINAGE. MULTIPLE STASIS ULCER ON DEDRA LE WITH DRAINAGE. ABD DISTENDED AND FIRM THOUGH DENIES SYMPTOMS. mt2 11:21 11:20 Reassessment: stefano jr10
[2020-02-11] MEDS ORDERED: FUROSEMIDE 40 MG/4 ML VIAL ONE (10:07)
--- NOTE | 2020-02-11 10:41 | RAD REPORT ---
EXAM DESCRIPTION: Sheila Single View02/11/2020 8:59 am CLINICAL HISTORY: Shortness of breath COMPARISON: December 2019 FINDINGS: Mild bilateral interstitial opacities. Heart is moderately enlarged IMPRESSION: Mild CHF
--- NOTE | 2020-02-11 11:16 | P.HP ---
Certification for Inpatient Patient admitted to: Observation With expected LOS: <2 Midnights Patient will require the following post-hospital care: None Practitioner: I am a practitioner with admitting privileges, knowledge of patient current condition, hospital course, and medical plan of care. Services: Services provided to patient in accordance with Admission requirements found in Title 42 Section 412.3 of the Code of Federal Regulations <Brandon Tubbs - Last Filed: 02/11/20 11:11> Patient History Date of Service: 02/11/20 Primary Care Provider: none Reason for admission: Lower extremity cellulitis, CHF History of Present Illness: 59-year-old male with history of diabetes mellitus type 2, hypertension, hyperlipidemia, severe PAD, COPD presents to the emergency department for bilateral lower extremity edema as well as cellulitis. Patient has been admitted multiple times in the past few months for these and similar complaints. During previous admission patient was found to have very poor arterial blood supply and was recommended he has outpatient fem-pop bypass. Patient is also recommended to take long-acting insulin daily and follow up with general surgery as he had incision and drainage of diabetic foot wound to the left foot. Patient has been noncompliant with all this as he does not have the resources and lives in a longterm. Since the previous discharge where he was diagnosed with recurrent cellulitis left lower extremity and prescribed Levaquin and Lantus as well as some inhalers patient has been noncompliant. During his previous admission patient did have MRI that showed no osteomyelitis. Patient reports that he has been having worsening redness, swelling to his lower extremities for the past 3 weeks. Patient also had echocardiogram during previous admission that showed ejection fraction of 44%. Patient's labs in the emergency department were unremarkable with the exception of patient's BNP and troponin which was slightly elevated. When I saw the patient in the emergency department he was awake, alert, oriented x3. Patient does not appear septic at this time. Vital signs stable. Will be admitted for further evaluation and management. - Past Medical/Surgical History Diabetic: Yes -: Diabetes mellitus type 2 non-insulin dependent -: Hypertension -: COPD -: Diabetic neuropathy -: Hyperlipidemia -: Severe PVD -: CAD -: Tobacco abuse -: Noncompliance with medication -: Incision and drainage to left foot -: Cardiac Stents x2 Psychosocial/ Personal History: Patient is currently staying in a homeless longterm in [place] - Social History Smoking Status: Current every day smoker Counseled patient to stop smoking for: less than 10 minutes Alcohol use: No CD- Drugs: No Caffeine use: Yes Place of Residence: Homeless <Brandon Tubbs - Last Filed: 02/11/20 11:11> Date of Service: 02/11/20 <Prince Magda Lauren - Last Filed: 02/11/20 18:47> Allergies No Known Allergies Allergy (Verified 11/12/19 16:51) Home Medications: Metformin ER [Glucophage ER*] 500 mg PO BID #60 tab.sa 12/25/19 Review of Systems 10-point ROS is otherwise unremarkable Cardiovascular: Edema Musculoskeletal: Leg Pain Integumentary: As per HPI <Brandon Tubbs - Last Filed: 02/11/20 11:11> Physical Examination - Physical Exam General: Alert, In no apparent distress HEENT: Atraumatic, Normocephalic, PERRLA Neck: Supple Respiratory: Clear to auscultation bilaterally, Normal air movement Cardiovascular: Regular rate/rhythm, Normal S1 S2, Edema Capillary refill: <2 Seconds Gastrointestinal: Normal bowel sounds, Soft and benign Musculoskeletal: Erythema, Tenderness, Warmth (Left lower extremity) Integumentary: Tenderness/swelling, Erythema, Warmth (Left lower extremity) Neurological: Normal speech, Normal strength at 5/5 x4 extr, Normal tone - Studies Laboratory Data (last 24 hrs) 02/11/20 06:03: Sodium 139, Potassium 4.3, BUN 24 H, Creatinine 0.95, Glucose 237 H, Total Bilirubin 0.6, AST 32, ALT 48, Alkaline Phosphatase 151 H, Lipase 249 02/11/20 06:03: WBC 6.2, Hgb 14.9, Hct 44.6, Plt Count 148 L <Brandon Tubbs - Last Filed: 02/11/20 11:11> - Studies Laboratory Data (last 24 hrs) 02/11/20 06:03: Sodium 139, Potassium 4.3, BUN 24 H, Creatinine 0.95, Glucose 237 H, Total Bilirubin 0.6, AST 32, ALT 48, Alkaline Phosphatase 151 H, Lipase 249 02/11/20 06:03: WBC 6.2, Hgb 14.9, Hct 44.6, Plt Count 148 L <Prince Magda Lauren - Last Filed: 02/11/20 18:47> Assessment and Plan - Plan Impression: Left recurrent diabetic foot cellulitis with chronic ulcer with noncompliance Diabetes mellitus type 2 with hyperglycemia-noncompliant with medications Acute on chronic systolic congestive heart failure, last ejection fraction 44% Hypertension Hyperlipidemia Severe peripheral vascular disease CAD COPD Tobacco abuse Plan: Left recurrent diabetic foot cellulitis with chronic ulcer with non compliance: Continue IV antibiotics this time. Blood and wound cultures have been obtained. Consult for infectious disease in place. Patient was supposed to follow up outpatient for fem-pop bypass, patient has not done this. Patient very noncompliant with medications. Previous cultures were sensitive for Levaquin. Appreciate further input from infectious disease. Patient had MRI during recent hospitalization and did not have osteomyelitis at that time. Will obtain repeat x-ray and sed rate. Diabetes mellitus type 2 with hyperglycemia non insulin-dependent: Monitor Accu-Cheks. Provide sliding scale. Recent A1c 10.0 Hypertension: Continue home medication Hyperlipidemia: Continue home medication Severe peripheral vascular disease: Contained home medication. Will provide DVT prophylaxis. Patient was suppose to follow up with cardiology and CV surgery for possible bypass in the future. Bypass is non emergent. CAD: Continue medication COPD: Will provide medication Tobacco abuse: Will provide nicotine patch. Cessation addressed in detail. Discharge Plan: Home Plan to discharge in: 48 Hours - Advance Directives Does patient have a Living Will: No Does patient have a Durable POA for Healthcare: No - Code Status/Comfort Care Code Status Assessed: Yes (Patient is full code) Time Spent Managing Pts Care (In Minutes): 55 <Brandon Tubbs - Last Filed: 02/11/20 11:11> Physician Review Additional Text: I started patient on scheduled insulin due to high A1c and uncontrolled type II DM with hyperglycemia <Prince Magda Lauren - Last Filed: 02/11/20 18:47>
[2020-02-11] MEDS ORDERED: ACETAMINOPHEN 500 MG TAB PO PRN (13:08)
[2020-02-11] MEDS ORDERED: ONDANSETRON 4 MG/2 ML VIAL IV PRN (13:08)
[2020-02-11] MEDS: INSULIN -REGULAR HUMAN 50 UNIT/0.5 ML ML SQ SCH ×4 (13:08→21:53)
[2020-02-11 14:18] VITALS: BMI 36.2
[2020-02-11] MEDS: Levofloxacin500mg IV 500 MG/100 ML BAG IV SCH (14:31)
[2020-02-11] MEDS: HYDROCODONE/APAP 7.5/325 MG TAB PO PRN (15:44)
--- NOTE | 2020-02-11 16:08 | RAD REPORT ---
EXAM DESCRIPTION: RAD - Foot Left 3 View - 02/11/2020 3:43 pm CLINICAL HISTORY: R/O osteo, left foot pain COMPARISON: Foot Left 3 View dated 12/23/2019; Foot Left 3 View dated 11/12/2019; Chest Single View milagro ed 02/11/2020 FINDINGS: No fracture, dislocation or periosteal reaction. No acute or destructive bony process. Sm all plantar spur is present. Soft tissues remain prominent over the dorsum of the foot. Soft tissue wound has no foreign body comp onent identifiable. IMPRESSION: No bone destruction or other evidence for osteomyelitis. No bony changes since December 22. Osteomyelitis can exist prior to radiographic bone destruction. Ongoing clinical concerns for osteomy elitis can be addressed with MR imaging.
[2020-02-11] MEDS: FUROSEMIDE 40 MG/4 ML VIAL IV SCH (16:44)
[2020-02-11] MEDS ORDERED: D50W 25 GM/50 ML SYRINGE/VIAL IV PRN (18:36)
[2020-02-11] MEDS ORDERED: GLUCAGON 1 MG/VIAL IM PRN (18:36)
[2020-02-11] MEDS: NPH (HUMAN) 100 UNITS/ML INSULIN SQ SCH (19:05)
[2020-02-12] MEDS: HYDROCODONE/APAP 7.5/325 MG TAB PO PRN ×3 (01:11→16:50)
[2020-02-12] MEDS: FUROSEMIDE 40 MG/4 ML VIAL IV SCH ×3 (01:11→16:49)
[2020-02-12 05:37] LABS: Basophils % 1.2 % (0-1.3); Hematocrit 43.6 % (39.6-49.0); Lymphocytes % 17.2 % (15.3-44.8); RBC Red Blood Cell Count 4.46 M/uL (4.33-5.43)
[2020-02-12 05:55] LABS: BUN Blood Urea Nitrogen 17 mg/dL (7-18); Bicarbonate 31 mmol/L (21-32); Glucose Level 113 mg/dL (74-106); Potassium 3.7 mmol/L (3.5-5.1); Sodium Level 137 mmol/L (136-145); Troponin I 0.07 ng/mL (0.0-0.045)
[2020-02-12] MEDS: INSULIN -REGULAR HUMAN 50 UNIT/0.5 ML ML SQ SCH ×4 (07:30→22:37)
[2020-02-12] MEDS: ENOXAPARIN 40 MG/0.4 ML SQ SCH (08:47)
[2020-02-12] MEDS: NPH (HUMAN) 100 UNITS/ML INSULIN SQ SCH ×2 (08:47→16:50)
[2020-02-12] MEDS ORDERED: POTASSIUM 25 MEQ EFFERV TAB PO ONE (09:00)
--- NOTE | 2020-02-12 09:30 | P.PN ---
Subjective Date of Service: 02/12/20 Primary Care Provider: none Chief Complaint: Lower extremity cellulitis, CHF Subjective: Improving Review of Systems 10-point ROS is otherwise unremarkable Respiratory: Shortness of Breath Cardiovascular: Edema Integumentary: As per HPI Physical Examination - Vital Signs Temperature: 97.0 F Blood Pressure: 108/70 Pulse: 90 Respirations: 16 Pulse Ox (%): 97 - Physical Exam General: Alert, In no apparent distress, Oriented x3 HEENT: Atraumatic, Normocephalic Neck: Supple Respiratory: Crackles/rales (By basilar) Cardiovascular: Edema Capillary refill: <2 Seconds Gastrointestinal: Other (Abdomen is distended, tight.) Musculoskeletal: No contractures, No erythema, No tenderness Integumentary: No tenderness/swelling, No erythema, No warmth Neurological: Normal tone - Studies Laboratory Data (last 24 hrs) 02/12/20 05:13: Sodium 137, Potassium 3.7, BUN 17, Creatinine 0.72, Glucose 113 H, Magnesium 2.0, Troponin I 0.07 H 02/12/20 05:13: WBC 5.9, Hgb 14.6, Hct 43.6, Plt Count 152 02/12/20 00:29: Troponin I 0.09 H 02/11/20 16:57: Troponin I 0.07 H Assessment & Plan Discharge Plan: Home - Code Status/Comfort Care Code Status Assessed: Yes (Patient is full code) Physician Review Additional Text: Impression: Left recurrent diabetic foot cellulitis with chronic ulcer with noncompliance Diabetes mellitus type 2 with hyperglycemia-noncompliant with medications Acute on chronic systolic congestive heart failure, last ejection fraction 44% Hypertension Hyperlipidemia Severe peripheral vascular disease CAD COPD Tobacco abuse Plan: Left recurrent diabetic foot cellulitis with chronic ulcer with non compliance: Continue IV antibiotics this time. Blood and wound cultures have been obtained. Consult for infectious disease in place. Patient was supposed to follow up outpatient for fem-pop bypass, patient has not done this. Patient very noncompliant with medications. Previous cultures were sensitive for Levaquin. Appreciate further input from infectious disease. Diabetes mellitus type 2 with hyperglycemia non insulin-dependent: Monitor Accu-Cheks. Provide sliding scale. Recent A1c 10.0 Acute on chronic systolic congestive heart failure, last ejection fraction 44%: Patient is on Lasix IV 40 mg q.8h. Appreciate cardiology input. Patient appears to be significantly volume overloaded with CT scan showing fluid and subcutaneous tissues. Abdomen is swollen and tight. Patient with significant pedal edema. Hypertension: Continue home medication Hyperlipidemia: Continue home medication Severe peripheral vascular disease: Contained home medication. Will provide DVT prophylaxis. Patient was suppose to follow up with cardiology and CV surgery for possible bypass in the future. Bypass is non emergent. CAD: Continue medication COPD: Will provide medication Tobacco abuse: Will provide nicotine patch. Cessation addressed in detail. Critical Care: No Time Spent Managing Pts Care (In Minutes): 55
--- NOTE | 2020-02-12 11:10 | P.CNS ---
Date of Consult: 02/12/20 Subjective: Patient is a 59 year old male who has been seen multiple times for chronic wound on left foot and cellulitis. It was determined that he needed outpatient fem-pop bypass for severe PVD. Patient was also recommended to take long-acting insulin daily and follow up with General surgery as he had incision and drainage of diabetic foot wound to left foot. Patient has been noncompliant as he does not have the resources and lives in a fpc. Wound cultures on 12/22 positive for Klebsiella, Enterobacter and Staph and patient was sent home with Levaquin which he reports taking. Patient now presents with worsening bilateral lower extremity swelling and erythema and worsening left foot ulcer which I have been consulted for. Past medical/surgical history: Diabetes mellitus type 2, hypertension, COPD, diabetic neuropathy, hyperlipidemia, severe PVD, CAD, tobacco abuse, I&D to left foot, cardiac stents x2 Family history: noncontributory Social history: Current every day smoker, denies alcohol use Allergies: NKDA Active Medications Acetaminophen (Tylenol -Extra Strength) 500 mg PO Q4HP PRN PRN Reason: TEMP > 100' F Stop: 03/12/20 13:09 Hydrocodone Bitart/Acetaminophen ([place] 7.5/325 Mg) 1 tab PO Q6H PRN PRN Reason: Pain scale 5-7 (Moderate) Stop: 03/12/20 13:09 Last Admin: 02/12/20 10:05 Dose: 1 tab Documented by: Dextrose (Dextrose 50% Syringe/Vial) 12.5 gm IV PRN PRN; Protocol PRN Reason: HYPOGLYCEMIA Stop: 03/12/20 18:37 Enoxaparin Sodium (Lovenox 40 Mg Inj) 40 mg SQ DAILY CHAYITO Stop: 03/13/20 09:01 Last Admin: 02/12/20 08:47 Dose: 40 mg Documented by: Furosemide (Lasix) 40 mg IV Q8HR CHAYITO Stop: 03/12/20 17:01 Last Admin: 02/12/20 10:04 Dose: 40 mg Documented by: Glucagon (Glucagen) 1 mg IM 1X PRN; Protocol PRN Reason: HYPOGLYCEMIA Stop: 03/12/20 18:37 Levofloxacin/Dextrose (Levaquin 500 Mg/100 Ml Ivpb) 500 mg in 100 mls @ 100 mls/hr IV Q24H CHAYITO; Protocol Stop: 03/12/20 14:01 Last Admin: 02/11/20 14:31 Dose: 100 mls Documented by: Insulin Human NPH (Novolin N (Humulin N)) 10 units SQ BIDWM [facility] Stop: 03/12/20 19:01 Last Admin: 02/12/20 08:47 Dose: 10 units Documented by: Insulin Human Regular (Novolin -R) 0 unit SQ ACHS [facility]; Protocol Stop: 03/12/20 13:09 Last Admin: 02/12/20 07:30 Dose: Not Given Documented by: Ondansetron HCl (Zofran) 4 mg IV Q6HP PRN PRN Reason: NAUSEA / VOMITING Stop: 03/12/20 13:09 Sodium Chloride (Normal Saline Flush) 10 ml IV BID [facility] Stop: 03/12/20 21:01 Last Admin: 02/12/20 08:47 Dose: 10 ml Documented by: ROS: CV: Denies chest pain RESP: Denies shortness of breath in cough : Denies dysuria GI: Denies nausea, diarrhea Skin: Reports worsening left foot wound and swelling/erythema to BLLE Objective: Temp Pulse Resp BP Pulse Ox 97.0 F 90 18 109/70 94 02/12/20 09:30 02/12/20 10:04 02/12/20 10:05 02/12/20 10:04 02/12/20 10:05 Labs: Sodium 137, potassium 3.7, BUN 17, creatinine 0.72, albumin 3.1, WBC 5.9, hemoglobin 14.6, hematocrit 43.6 Foot xray 12/22: EXAM DESCRIPTION: RAD - Foot Left 3 View - 12/23/2019 9:35 am CLINICAL HISTORY: Pain;Swelling, history of foot infection subsequent to surgery in November. Site of wound or concern not detailed COMPARISON: Foot Left 3 View dated 11/12/2019 FINDINGS: No fracture, dislocation or periosteal reaction. No acute or destructive bony process. Wound is seen over the dorsum of the foot. There is no foreign body present. Small plantar spur is present. IMPRESSION: Soft tissue wound and soft tissue swelling present over the dorsum of the foot. Air density in the soft tissues is believed be part of the open wound and not air from a gas-forming organism. No bone destruction. Foot xray 02/10: EXAM DESCRIPTION: RAD - Foot Left 3 View - 02/11/2020 3:43 pm CLINICAL HISTORY: R/O osteo, left foot pain COMPARISON: Foot Left 3 View dated 12/23/2019; Foot Left 3 View dated 11/12/2019; Chest Single View dated 02/11/2020 FINDINGS: No fracture, dislocation or periosteal reaction. No acute or destructive bony process. Small plantar spur is present. Soft tissues remain prominent over the dorsum of the foot. Soft tissue wound has no foreign body component identifiable. IMPRESSION: No bone destruction or other evidence for osteomyelitis. No bony changes since December 22. Osteomyelitis can exist prior to radiographic bone destruction. Ongoing clinical concerns for osteomyelitis can be addressed with MR imaging. ROS: General: Awake, alert, oriented CV: S1, S2 RESP: Diminished breath sounds ABD: Round, nontender, bowel sounds present Extremities: 2+ pitting edema to bilateral lower extremities Skin: Left foot wound with large amount of slough, yvrose area with erythema and rolled edges and large amount of serous drainage. BLLE with erythema, warmth and multiple blisters Assessment and plan: Left foot DFU, recommend santyl daily BLLE, can apply betadine PVD, patient needs to follow up with vascular surgeon Diabetes mellitus, monitor glycemic control Currently on Levaquin, recommend to continue Patient will need a minimum of 2 weeks of IV antibiotics Educated the patient to keep leg elevated Will continue to monitor Thank you for consult Patient discussed with Dr. Michael
[2020-02-12] MEDS ORDERED: VANCOMYCIN/NS 1 gm 1 GM/250 ML BAG IVPB SCH (12:15)
[2020-02-12] MEDS: Levofloxacin500mg IV 500 MG/100 ML BAG IV SCH (14:10)
[2020-02-12] MEDS: VANCOMYCIN 2 GM in NA CHLORIDE 0.9% 500 ML IVPB SCH (15:15)
[2020-02-12] MEDS: SANTYL OINTMENT TOP SCH (15:27)
[2020-02-13] MEDS: FUROSEMIDE 40 MG/4 ML VIAL IV SCH ×3 (00:16→16:05)
[2020-02-13] MEDS: VANCOMYCIN 2 GM in NA CHLORIDE 0.9% 500 ML IVPB SCH ×2 (01:05→13:29)
[2020-02-13 05:45] LABS: Basophils % 1.1 % (0-1.3); Hematocrit 44.4 % (39.6-49.0); Lymphocytes % 16.8 % (15.3-44.8); MPV 9.5 fL (7.6-11.3); RBC Red Blood Cell Count 4.56 M/uL (4.33-5.43)
[2020-02-13 06:09] LABS: BUN Blood Urea Nitrogen 16 mg/dL (7-18); Bicarbonate 30 mmol/L (21-32); Glucose Level 119 mg/dL (74-106); Potassium 3.6 mmol/L (3.5-5.1); Sodium Level 137 mmol/L (136-145)
[2020-02-13] MEDS: INSULIN -REGULAR HUMAN 50 UNIT/0.5 ML ML SQ SCH ×4 (07:30→20:23)
[2020-02-13] MEDS ORDERED: KCL 20 MEQ/100 mL IVPB 20 MEQ/100 ML BAG IV SCH (08:00)
[2020-02-13] MEDS ORDERED: POTASSIUM CL SA 10 MEQ TAB PO ONE (08:18)
[2020-02-13] MEDS: NPH (HUMAN) 100 UNITS/ML INSULIN SQ SCH ×2 (08:40→16:05)
[2020-02-13] MEDS: SANTYL OINTMENT TOP SCH (08:41)
[2020-02-13] MEDS ORDERED: COLLAGENASE 30 GM OINTMENT TOP SCH (09:00)
[2020-02-13] MEDS ORDERED: MEDIHONEY 44 ML TOPICAL TUBE TOP SCH (09:00)
--- NOTE | 2020-02-13 11:14 | P.PN ---
Subjective Date of Service: 02/13/20 Primary Care Provider: none Chief Complaint: Lower extremity cellulitis, CHF Subjective: Improving Review of Systems Respiratory: Shortness of Breath Cardiovascular: Edema Integumentary: As per HPI Physical Examination - Vital Signs Temperature: 97.9 F Blood Pressure: 163/69 Pulse: 92 Respirations: 18 Pulse Ox (%): 96 - Physical Exam General: Alert, In no apparent distress HEENT: Atraumatic, PERRLA, EOMI Neck: Supple, JVD not distended Respiratory: Clear to auscultation bilaterally, Normal air movement Cardiovascular: Regular rate/rhythm, Normal S1 S2, Edema Capillary refill: <2 Seconds Gastrointestinal: Normal bowel sounds, No tenderness, Other (Abdomen distended, tight) Musculoskeletal: No tenderness, Erythema, Tenderness Integumentary: No rashes, Tenderness/swelling, Erythema, Warmth, Venous stasis ulcer Neurological: Normal speech, Normal tone, Normal affect Lymphatics: No axilla or inguinal lymphadenopathy - Studies Microbiology Data (last 24 hrs): 02/11/20 06:03 Wound - Left Foot Gram Stain - Final Assessment & Plan Discharge Plan: Home Plan to discharge in: Greater than 2 days - Code Status/Comfort Care Code Status Assessed: Yes Physician Review Additional Text: Impression: Left recurrent diabetic foot cellulitis with chronic ulcer with noncompliance Diabetes mellitus type 2 with hyperglycemia-noncompliant with medications Acute on chronic systolic congestive heart failure, last ejection fraction 44% Hypertension Hyperlipidemia Severe peripheral vascular disease CAD COPD Tobacco abuse Plan: Left recurrent diabetic foot cellulitis with chronic ulcer with non compliance: Continue IV antibiotics this time. Wound cultures positive for multiple organisms, both sensitive to Levaquin continue at this time. Patient was supposed to follow up outpatient for fem-pop bypass, patient has not done this. Patient very noncompliant with medications. Appreciate further input from infectious disease. Diabetes mellitus type 2 with hyperglycemia non insulin-dependent: Monitor Accu -Cheks. Provide sliding scale. Recent A1c 10.0 Acute on chronic systolic congestive heart failure, last ejection fraction 44%: Patient is on Lasix IV 40 mg q.8h. Appreciate cardiology input. Patient appears to be significantly volume overloaded with CT scan showing fluid and subcutaneous tissues. Abdomen is swollen and tight. Patient with significant pedal edema. Cardiology has seen patient recommend continuation with Lasix. Patient will likely need an additional 2-3 days of hospitalization Hypertension: Continue home medication Hyperlipidemia: Continue home medication Severe peripheral vascular disease: Contained home medication. Will provide DVT prophylaxis. Patient was suppose to follow up with cardiology and CV surgery for possible bypass in the future. Bypass is non emergent. CAD: Continue medication COPD: Will provide medication Tobacco abuse: Will provide nicotine patch. Cessation addressed in detail. Critical Care: No Time Spent Managing Pts Care (In Minutes): 55
--- NOTE | 2020-02-13 11:44 | P.PN ---
Date of Service: 02/13/20 Subjective: Patient is a 59 year old male who has been seen multiple times for chronic wound on left foot and cellulitis. It was determined that he needed outpatient fem-pop bypass for severe PVD. Patient was also recommended to take long-acting insulin daily and follow up with General surgery as he had incision and drainage of diabetic foot wound to left foot. Patient has been noncompliant as he does not have the resources and lives in a skilled nursing. Wound cultures on 12/22 positive for Klebsiella, Enterobacter and Staph and patient was sent home with Levaquin which he reports taking. Patient now presents with worsening bilateral lower extremity swelling and erythema and worsening left foot ulcer which I have been consulted for. Patient examined at bedside. No new changes. Objective: Temp Pulse Resp BP Pulse Ox 97.9 F 92 H 18 163/69 H 96 02/13/20 11:14 02/13/20 11:14 02/13/20 11:14 02/13/20 11:14 02/13/20 11:14 Labs: Sodium 137, potassium 3.6, BUN 16, creatinine 0.78, albumin 3.1, WBC 5.7, hemoglobin 14.8, hematocrit 44.4 Foot xray 12/22: EXAM DESCRIPTION: RAD - Foot Left 3 View - 12/23/2019 9:35 am CLINICAL HISTORY: Pain;Swelling, history of foot infection subsequent to surgery in November. Site of wound or concern not detailed COMPARISON: Foot Left 3 View dated 11/12/2019 FINDINGS: No fracture, dislocation or periosteal reaction. No acute or destructive bony process. Wound is seen over the dorsum of the foot. There is no foreign body present. Small plantar spur is present. IMPRESSION: Soft tissue wound and soft tissue swelling present over the dorsum of the foot. Air density in the soft tissues is believed be part of the open wound and not air from a gas-forming organism. No bone destruction. Foot xray 02/10: EXAM DESCRIPTION: RAD - Foot Left 3 View - 02/11/2020 3:43 pm CLINICAL HISTORY: R/O osteo, left foot pain COMPARISON: Foot Left 3 View dated 12/23/2019; Foot Left 3 View dated 11/12/2019; Chest Single View dated 02/11/2020 FINDINGS: No fracture, dislocation or periosteal reaction. No acute or destructive bony process. Small plantar spur is present. Soft tissues remain prominent over the dorsum of the foot. Soft tissue wound has no foreign body component identifiable. IMPRESSION: No bone destruction or other evidence for osteomyelitis. No bony changes since December 22. Osteomyelitis can exist prior to radiographic bone destruction. Ongoing clinical concerns for osteomyelitis can be addressed with MR imaging. ROS: General: Awake, alert, oriented CV: S1, S2 RESP: Diminished breath sounds ABD: Round, nontender, bowel sounds present Extremities: 2+ pitting edema to bilateral lower extremities Skin: Left foot wound with large amount of slough, yvrose area with erythema and rolled edges and large amount of serous drainage. BLLE with erythema, warmth and multiple blisters, large amount of serous drainage Assessment and plan: Left foot DFU, continue current treatment BLLE, can apply betadine PVD, patient needs to follow up with vascular surgeon Diabetes mellitus, monitor glycemic control Levaquin day 3, Vancomycin day 2, continue Patient will need a minimum of 2 weeks of IV antibiotics Educated the patient to keep leg elevated Will continue to monitor Patient discussed with Dr. Michael
[2020-02-13] MEDS: Levofloxacin500mg IV 500 MG/100 ML BAG IV SCH (13:06)
[2020-02-14] MEDS: FUROSEMIDE 40 MG/4 ML VIAL IV SCH ×3 (01:55→17:05)
[2020-02-14] MEDS: VANCOMYCIN 2 GM in NA CHLORIDE 0.9% 500 ML IVPB SCH ×2 (02:46→14:30)
[2020-02-14 06:03] LABS: BUN Blood Urea Nitrogen 15 mg/dL (7-18); Bicarbonate 30 mmol/L (21-32); Glucose Level 234 mg/dL (74-106); Potassium 3.6 mmol/L (3.5-5.1); Sodium Level 138 mmol/L (136-145)
--- NOTE | 2020-02-14 08:45 | P.PN ---
Subjective Date of Service: 02/14/20 Primary Care Provider: none Chief Complaint: Lower extremity cellulitis, CHF Subjective: No new changes, No C/O voiced Review of Systems 10-point ROS is otherwise unremarkable Cardiovascular: Edema Integumentary: As per HPI Physical Examination - Vital Signs Temperature: 97.1 F Blood Pressure: 121/84 Pulse: 87 Respirations: 17 Pulse Ox (%): 98 - Physical Exam General: Alert, In no apparent distress, Oriented x3 HEENT: Atraumatic, Normocephalic, PERRLA Neck: Supple Respiratory: Clear to auscultation bilaterally Cardiovascular: Edema Capillary refill: <2 Seconds Gastrointestinal: Normal bowel sounds, Distended Musculoskeletal: Erythema, Warmth Integumentary: Tenderness/swelling, Erythema, Warmth - Studies Microbiology Data (last 24 hrs): 02/11/20 06:03 Wound - Left Foot Gram Stain - Final 02/11/20 06:03 Wound - Left Foot Culture & Sensitivity - Final Klebsiella Oxytoca Escherichia Coli Streptococcus Agalactiae Grp B Assessment & Plan Discharge Plan: Home Plan to discharge in: 48 Hours - Code Status/Comfort Care Code Status Assessed: Yes Physician Review Additional Text: Impression: Left recurrent diabetic foot cellulitis with chronic ulcer with noncompliance Diabetes mellitus type 2 with hyperglycemia-noncompliant with medications Acute on chronic systolic congestive heart failure, last ejection fraction 44% Hypertension Hyperlipidemia Severe peripheral vascular disease CAD COPD Tobacco abuse Plan: Left recurrent diabetic foot cellulitis with chronic ulcer with non compliance: Continue IV antibiotics this time. Wound cultures positive for multiple organisms, both sensitive to Levaquin continue at this time. Patient was supposed to follow up outpatient for fem-pop bypass, patient has not done this. Patient very noncompliant with medications. Appreciate further input from infec tious disease. Infectious Disease recommends addition of vancomycin during hospitalization. Diabetes mellitus type 2 with hyperglycemia non insulin-dependent: Monitor Accu-Cheks. Provide sliding scale. Recent A1c 10.0 Acute on chronic systolic congestive heart failure, last ejection fraction 44%: Patient is on Lasix IV 40 mg q.8h. Appreciate cardiology input. Patient appears to be significantly volume overloaded with CT scan showing fluid and subcutaneous tissues. Abdomen is swollen and tight. Patient with significant pedal edema. Cardiology has seen patient recommend continuation with Lasix. Patient will likely need an additional 2-3 days of hospitalization Hypertension: Continue home medication Hyperlipidemia: Continue home medication Severe peripheral vascular disease: Continued home medication. Will provide DVT prophylaxis. Patient was suppose to follow up with cardiology and CV surgery for possible bypass in the future. Bypass is non emergent. CAD: Continue medication COPD: Will provide medication Tobacco abuse: Will provide nicotine patch. Cessation addressed in detail. Critical Care: No Time Spent Managing Pts Care (In Minutes): 55
[2020-02-14] MEDS ORDERED: POTASSIUM CL SA 10 MEQ TAB PO ONE (09:00)
[2020-02-14] MEDS: SANTYL OINTMENT TOP SCH (09:00)
[2020-02-14] MEDS: INSULIN -REGULAR HUMAN 50 UNIT/0.5 ML ML SQ SCH ×4 (09:20→21:47)
[2020-02-14] MEDS: NPH (HUMAN) 100 UNITS/ML INSULIN SQ SCH ×2 (09:20→17:05)
[2020-02-14] MEDS: ENOXAPARIN 40 MG/0.4 ML SQ SCH (09:21)
[2020-02-14] MEDS: Levofloxacin500mg IV 500 MG/100 ML BAG IV SCH (13:22)
[2020-02-15] MEDS: VANCOMYCIN 2 GM in NA CHLORIDE 0.9% 500 ML IVPB SCH (02:06)
[2020-02-15] MEDS: FUROSEMIDE 40 MG/4 ML VIAL IV SCH ×3 (02:07→16:57)
[2020-02-15 05:57] LABS: BUN Blood Urea Nitrogen 16 mg/dL (7-18); Bicarbonate 33 mmol/L (21-32); Glucose Level 235 mg/dL (74-106); Potassium 3.6 mmol/L (3.5-5.1); Sodium Level 140 mmol/L (136-145)
[2020-02-15] MEDS: NPH (HUMAN) 100 UNITS/ML INSULIN SQ SCH ×3 (08:00→16:57)
--- NOTE | 2020-02-15 08:15 | P.PN ---
Subjective Date of Service: 02/15/20 Primary Care Provider: none Chief Complaint: Lower extremity cellulitis, CHF Review of Systems Cardiovascular: Edema Integumentary: As per HPI Physical Examination - Vital Signs Temperature: 98.0 F Blood Pressure: 129/70 Pulse: 103 Respirations: 18 Pulse Ox (%): 94 - Physical Exam General: Alert, In no apparent distress, Oriented x3 HEENT: Atraumatic, Normocephalic, PERRLA Neck: Supple Respiratory: Crackles/rales (Bibasilar ) Cardiovascular: Edema (Edema of the abdomen and lower extremities.) Capillary refill: <2 Seconds Gastrointestinal: Normal bowel sounds, Rigidity Musculoskeletal: No tenderness, Erythema Integumentary: Tenderness/swelling, Erythema, Warmth, Diabetic ulcer Neurological: Normal speech, Normal strength at 5/5 x4 extr, Normal tone - Studies Microbiology Data (last 24 hrs): 02/11/20 06:03 Wound - Left Foot Gram Stain - Final 02/11/20 06:03 Wound - Left Foot Culture & Sensitivity - Final Klebsiella Oxytoca Escherichia Coli Streptococcus Agalactiae Grp B Assessment & Plan Discharge Plan: Home Plan to discharge in: 48 Hours - Code Status/Comfort Care Code Status Assessed: Yes Physician Review Additional Text: Impression: Left recurrent diabetic foot cellulitis with chronic ulcer with noncompliance Diabetes mellitus type 2 with hyperglycemia-noncompliant with medications Acute on chronic systolic congestive heart failure, last ejection fraction 44% Hypertension Hyperlipidemia Severe peripheral vascular disease CAD COPD Tobacco abuse Plan: Left recurrent diabetic foot cellulitis with chronic ulcer with non compliance: Continue IV antibiotics this time. Wound cultures positive for multiple organisms, both sensitive to Levaquin continue at this time. Patient was supposed to follow up outpatient for fem-pop bypass, patient has not done this. Patient very noncompliant with medications. Appreciate further input from infectious disease. Also continue with rocephin at this time during hospitalization. Diabetes mellitus type 2 with hyperglycemia non insulin-dependent: Monitor Accu-Cheks. Provide sliding scale. Recent A1c 10.0, added NPH 15u BID. Acute on chronic systolic congestive heart failure, last ejection fraction 44%: Patient is on Lasix IV 40 mg q.8h. Appreciate cardiology input. Patient appears to be significantly volume overloaded with CT scan showing fluid and subcutaneous tissues. Abdomen is swollen and tight. Patient with significant pedal edema. Cardiology has seen patient recommend continuation with Lasix. Patient will likely need an additional 2-3 days of hospitalization Hypertension: Continue home medication Hyperlipidemia: Continue home medication Severe peripheral vascular disease: Continued home medication. Will provide DVT prophylaxis. Patient was suppose to follow up with cardiology and CV surgery for possible bypass in the future. Bypass is non emergent. CAD: Continue medication COPD: Will provide medication Tobacco abuse: Will provide nicotine patch. Cessation addressed in detail. Critical Care: No Time Spent Managing Pts Care (In Minutes): 55
[2020-02-15] MEDS: ENOXAPARIN 40 MG/0.4 ML SQ SCH (08:57)
[2020-02-15] MEDS: INSULIN -REGULAR HUMAN 50 UNIT/0.5 ML ML SQ SCH ×4 (08:57→21:09)
[2020-02-15] MEDS: SANTYL OINTMENT TOP SCH (08:59)
[2020-02-15] MEDS ORDERED: POTASSIUM 25 MEQ EFFERV TAB PO ONE (09:00)
[2020-02-15] MEDS: CEFTRIAXONE/SWI 1gm 1 GM/10 ML SYR IVP SCH (09:41)
[2020-02-15] MEDS: Levofloxacin500mg IV 500 MG/100 ML BAG IV SCH (13:13)
[2020-02-16] MEDS: FUROSEMIDE 40 MG/4 ML VIAL IV SCH ×3 (03:17→21:35)
[2020-02-16 04:49] LABS: Potassium 3.7 mmol/L (3.5-5.1)
[2020-02-16] MEDS: NPH (HUMAN) 100 UNITS/ML INSULIN SQ SCH ×2 (08:41→16:53)
[2020-02-16] MEDS: ENOXAPARIN 40 MG/0.4 ML SQ SCH (08:41)
[2020-02-16] MEDS: INSULIN -REGULAR HUMAN 50 UNIT/0.5 ML ML SQ SCH ×4 (08:41→21:35)
[2020-02-16] MEDS: CEFTRIAXONE/SWI 1gm 1 GM/10 ML SYR IVP SCH (08:41)
[2020-02-16] MEDS: SANTYL OINTMENT TOP SCH (09:00)
[2020-02-16] MEDS ORDERED: POTASSIUM 25 MEQ EFFERV TAB PO ONE (09:00)
--- NOTE | 2020-02-16 12:58 | P.PN ---
Subjective Date of Service: 02/16/20 Primary Care Provider: none Chief Complaint: Lower extremity cellulitis, CHF Subjective: Improving Physical Examination - Vital Signs Temperature: 97.0 F Blood Pressure: 128/64 Pulse: 100 Respirations: 14 Pulse Ox (%): 97 - Physical Exam General: Alert, In no apparent distress, Cooperative HEENT: Atraumatic Neck: Supple Respiratory: Clear to auscultation bilaterally, Normal air movement Cardiovascular: Normal pulses, Regular rate/rhythm Integumentary: Tenderness/swelling (Edema to the lower extremities noted) Neurological: Normal speech, Normal strength at 5/5 x4 extr, Normal tone, Normal affect - Studies Microbiology Data (last 24 hrs): 02/11/20 06:05 Blood - Blood Aerobic Blood Culture - Final No growth in 5 days. 02/11/20 06:05 Blood - Blood Anaerobic Blood Culture - Final No growth in 5 days. 02/11/20 06:30 Blood - Blood Aerobic Blood Culture - Final No growth in 5 days. 02/11/20 06:30 Blood - Blood Anaerobic Blood Culture - Final No growth in 5 days. Medications List Reviewed: Yes Assessment & Plan Discharge Plan: Home Plan to discharge in: 48 Hours Physician Review Additional Text: Impression: Left recurrent diabetic foot cellulitis with chronic ulcer with noncompliance Diabetes mellitus type 2 with hyperglycemia-noncompliant with medications Acute on chronic systolic congestive heart failure, last ejection fraction 44% Hypertension Hyperlipidemia Severe peripheral vascular disease CAD COPD Tobacco abuse Plan: Left recurrent diabetic foot cellulitis with chronic ulcer with non compliance: Continue IV antibiotic therapy at this time. Wound cultures positive for multiple organisms, both sensitive to Levaquin continue at this time. Patient still with edema. Will increase IV Lasix to 80 mg twice daily. Continue fluid restriction. Will discuss with infectious disease about recommendations on medication at discharge. Anticipate improvement over the next 48 hr. Anticipate discharge after that time. Diabetes mellitus type 2 with hyperglycemia non insulin-dependent: Continue to adjust NPH. Monitor Accu-Cheks. Provide sliding scale. Recent A1c 10.0. Acute on chronic systolic congestive heart failure, last ejection fraction 44%: Increase Lasix to 80 mg twice daily. Continue fluid restriction. Appreciate cardiology input. Patient appears to be significantly volume overloaded with CT scan showing fluid and subcutaneous tissues. Hypertension: Continue home medication Hyperlipidemia: Continue home medication Severe peripheral vascular disease: Continued home medication. Will provide DVT prophylaxis. Patient was suppose to follow up with cardiology and CV surgery for possible bypass in the future. Bypass is non emergent. CAD: Continue medication COPD: Will provide medication Tobacco abuse: Will provide nicotine patch. Cessation addressed in detail. Time Spent Managing Pts Care (In Minutes): 55
[2020-02-16] MEDS: Levofloxacin500mg IV 500 MG/100 ML BAG IV SCH (14:36)
--- NOTE | 2020-02-16 18:20 | P.PN ---
Date of Service: 02/16/20 Subjective: Patient is a 59 year old male who has been seen multiple times for chronic wound on left foot and cellulitis. It was determined that he needed outpatient fem-pop bypass for severe PVD. Patient was also recommended to take long-acting insulin daily and follow up with General surgery as he had incision and drainage of diabetic foot wound to left foot. Patient has been noncompliant as he does not have the resources and lives in a snf. Wound cultures on 12/22 positive for Klebsiella, Enterobacter and Staph and patient was sent home with Levaquin which he reports taking. Patient now presents with worsening bilateral lower extremity swelling and erythema and worsening left foot ulcer which I have been consulted for. Patient examined at bedside. No new changes. Objective: Temp Pulse Resp BP Pulse Ox 97.0 F 100 H 14 128/64 97 02/16/20 12:19 02/16/20 12:19 02/16/20 12:19 02/16/20 12:19 02/16/20 12:19 Labs: Sodium 139, potassium 3.7, BUN 17, creatinine 0.87, albumin 3.1, WBC 5.7, hemoglobin 14.8, hematocrit 44.4 Foot xray 12/22: EXAM DESCRIPTION: RAD - Foot Left 3 View - 12/23/2019 9:35 am CLINICAL HISTORY: Pain;Swelling, history of foot infection subsequent to surgery in November. Site of wound or concern not detailed COMPARISON: Foot Left 3 View dated 11/12/2019 FINDINGS: No fracture, dislocation or periosteal reaction. No acute or destructive bony process. Wound is seen over the dorsum of the foot. There is no foreign body present. Small plantar spur is present. IMPRESSION: Soft tissue wound and soft tissue swelling present over the dorsum of the foot. Air density in the soft tissues is believed be part of the open wound and not air from a gas-forming organism. No bone destruction. Foot xray 02/10: EXAM DESCRIPTION: RAD - Foot Left 3 View - 02/11/2020 3:43 pm CLINICAL HISTORY: R/O osteo, left foot pain COMPARISON: Foot Left 3 View dated 12/23/2019; Foot Left 3 View dated 11/12/2019; Chest Single View dated 02/11/2020 FINDINGS: No fracture, dislocation or periosteal reaction. No acute or destructive bony process. Small plantar spur is present. Soft tissues remain prominent over the dorsum of the foot. Soft tissue wound has no foreign body component identifiable. IMPRESSION: No bone destruction or other evidence for osteomyelitis. No bony changes since December 22. Osteomyelitis can exist prior to radiographic bone destruction. Ongoing clinical concerns for osteomyelitis can be addressed with MR imaging. ROS: General: Awake, alert, oriented CV: S1, S2 RESP: Diminished breath sounds ABD: Round, nontender, bowel sounds present Extremities: 2+ pitting edema to bilateral lower extremities Skin: Left foot wound with large amount of slough, yvrose area with erythema and rolled edges and large amount of serous drainage. BLLE with erythema, warmth and multiple blisters, large amount of serous drainage Assessment and plan: Left foot DFU, continue current treatment Lower extremity cellulitis improving, can apply betadine PVD, patient needs to follow up with vascular surgeon Diabetes mellitus, monitor glycemic control Levaquin day 6, recommend to continue for total of 2 weeks Educated the patient to keep leg elevated Will continue to monitor Patient discussed with Dr. Michael
[2020-02-17 04:25] LABS: Potassium 3.7 mmol/L (3.5-5.1)
[2020-02-17] MEDS: SANTYL OINTMENT TOP SCH (09:00)
[2020-02-17] MEDS ORDERED: POTASSIUM CL SA 10 MEQ TAB PO ONE (09:00)
[2020-02-17] MEDS: NPH (HUMAN) 100 UNITS/ML INSULIN SQ SCH ×2 (09:19→16:19)
[2020-02-17] MEDS: INSULIN -REGULAR HUMAN 50 UNIT/0.5 ML ML SQ SCH ×4 (09:19→21:29)
[2020-02-17] MEDS: FUROSEMIDE 40 MG/4 ML VIAL IV SCH ×2 (09:20→21:28)
[2020-02-17] MEDS: ENOXAPARIN 40 MG/0.4 ML SQ SCH (09:20)
--- NOTE | 2020-02-17 10:12 | P.PN ---
Date of Service: 02/17/20 Subjective: Patient is a 59 year old male who has been seen multiple times for chronic wound on left foot and cellulitis. It was determined that he needed outpatient fem-pop bypass for severe PVD. Patient was also recommended to take long-acting insulin daily and follow up with General surgery as he had incision and drainage of diabetic foot wound to left foot. Patient has been noncompliant as he does not have the resources and lives in a group home. Wound cultures on 12/22 positive for Klebsiella, Enterobacter and Staph and patient was sent home with Levaquin which he reports taking. Patient now presents with worsening bilateral lower extremity swelling and erythema and worsening left foot ulcer which I have been consulted for. Patient examined at bedside. Cellulitis and left foot wound improving. Objective: Temp Pulse Resp BP Pulse Ox 97.1 F 86 19 114/56 L 96 02/17/20 08:00 02/17/20 09:20 02/17/20 08:00 02/17/20 09:20 02/17/20 08:00 Labs: Sodium 141, potassium 3.7, BUN 17, creatinine 0.93, albumin 3.1, WBC 5.7, hemoglobin 14.8, hematocrit 44.4 Foot xray 12/22: EXAM DESCRIPTION: RAD - Foot Left 3 View - 12/23/2019 9:35 am CLINICAL HISTORY: Pain;Swelling, history of foot infection subsequent to surgery in November. Site of wound or concern not detailed COMPARISON: Foot Left 3 View dated 11/12/2019 FINDINGS: No fracture, dislocation or periosteal reaction. No acute or destructive bony process. Wound is seen over the dorsum of the foot. There is no foreign body present. Small plantar spur is present. IMPRESSION: Soft tissue wound and soft tissue swelling present over the dorsum of the foot. Air density in the soft tissues is believed be part of the open wound and not air from a gas-forming organism. No bone destruction. Foot xray 02/10: EXAM DESCRIPTION: RAD - Foot Left 3 View - 02/11/2020 3:43 pm CLINICAL HISTORY: R/O osteo, left foot pain COMPARISON: Foot Left 3 View dated 12/23/2019; Foot Left 3 View dated 11/12/2019; Chest Single View dated 02/11/2020 FINDINGS: No fracture, dislocation or periosteal reaction. No acute or destructive bony process. Small plantar spur is present. Soft tissues remain prominent over the dorsum of the foot. Soft tissue wound has no foreign body component identifiable. IMPRESSION: No bone destruction or other evidence for osteomyelitis. No bony changes since December 22. Osteomyelitis can exist prior to radiographic bone destruction. Ongoing clinical concerns for osteomyelitis can be addressed with MR imaging. ROS: General: Awake, alert, oriented CV: S1, S2 RESP: Diminished breath sounds ABD: Round, nontender, bowel sounds present Skin: Left foot wound with minimal amount of slough, tendons exposed, yvrose area with erythema and rolled edges and serous drainage with odor present. BLLE with erythema, warmth and multiple blisters improving Assessment and plan: Left foot DFU, recommend to pack with iodoform gauze daily Lower extremity cellulitis improving, continue betadine PVD, patient needs to follow up with vascular surgeon Diabetes mellitus, monitor glycemic control Levaquin day 7, recommend to continue for total of 2 weeks Educated the patient to keep leg elevated Will continue to monitor Patient discussed with Dr. Michael
[2020-02-17] MEDS: Levofloxacin500mg IV 500 MG/100 ML BAG IV SCH (14:10)
--- NOTE | 2020-02-17 14:12 | P.PN ---
Subjective Date of Service: 02/17/20 Primary Care Provider: none Chief Complaint: Lower extremity cellulitis, CHF Subjective: Improving Physical Examination - Vital Signs Temperature: 97.1 F Blood Pressure: 115/69 Pulse: 99 Respirations: 18 Pulse Ox (%): 95 - Physical Exam General: Alert, Cooperative HEENT: Atraumatic Neck: Supple Respiratory: Clear to auscultation bilaterally, Normal air movement Cardiovascular: Normal pulses, Regular rate/rhythm Integumentary: Tenderness/swelling (Edema to the lower extremities improved) Neurological: Normal speech, Normal strength at 5/5 x4 extr, Normal tone, Normal affect - Studies Medications List Reviewed: Yes Assessment & Plan Discharge Plan: Home Plan to discharge in: 24 Hours Physician Review Additional Text: Impression: Left recurrent diabetic foot cellulitis with chronic ulcer with noncompliance, wound culture positive for Klebsiella, E coli and Streptococcus Diabetes mellitus type 2 with hyperglycemia-noncompliant with medications Acute on chronic systolic congestive heart failure, last ejection fraction 44% Hypertension Hyperlipidemia Severe peripheral vascular disease CAD COPD Tobacco abuse Plan: Left recurrent diabetic foot cellulitis with chronic ulcer with non compliance, wound culture positive for Klebsiella, E coli and Streptococcus: Continue IV antibiotic therapy at this time. Wound culture reviewed. Case discussed with infectious disease. Infectious Disease also debrided wound at this time. Continue with wound care as recommended by infectious disease. Infectious Disease recommends Levaquin for at least 2 weeks total. Will continue with IV Lasix at this time. Continue fluid restriction. Anticipate discharge tomorrow. Will have physical therapy ambulate. Diabetes mellitus type 2 with hyperglycemia non insulin-dependent: Continue to adjust NPH. Monitor Accu-Cheks. Provide sliding scale. Recent A1c 10.0. Acute on chronic systolic congestive heart failure, last ejection fraction 44%: Continue with diuresis.. Continue fluid restriction. Case discussed with cardiology. Patient needs to be compliant with his medication. Hypertension: Continue home medication Hyperlipidemia: Continue home medication Severe peripheral vascular disease: Continued home medication. Will provide DVT prophylaxis. Patient was suppose to follow up with cardiology and CV surgery for possible bypass in the future. Bypass is non emergent. CAD: Continue medication COPD: Will provide medication Tobacco abuse: Will provide nicotine patch. Cessation addressed in detail. Time Spent Managing Pts Care (In Minutes): 55
[2020-02-18 04:57] LABS: BUN Blood Urea Nitrogen 19 mg/dL (7-18); Bicarbonate 31 mmol/L (21-32); Glucose Level 151 mg/dL (74-106); Potassium 3.5 mmol/L (3.5-5.1); Sodium Level 138 mmol/L (136-145)
[2020-02-18] MEDS: NPH (HUMAN) 100 UNITS/ML INSULIN SQ SCH ×2 (08:00→17:00)
[2020-02-18] MEDS: ENOXAPARIN 40 MG/0.4 ML SQ SCH (08:45)
[2020-02-18] MEDS: FUROSEMIDE 40 MG/4 ML VIAL IV SCH ×2 (08:45→20:58)
[2020-02-18] MEDS: INSULIN -REGULAR HUMAN 50 UNIT/0.5 ML ML SQ SCH ×4 (08:47→20:57)
[2020-02-18] MEDS ORDERED: POTASSIUM CL SA 10 MEQ TAB PO ONE (09:00)
--- NOTE | 2020-02-18 14:04 | P.PN ---
Subjective Date of Service: 02/18/20 Primary Care Provider: none Chief Complaint: Lower extremity cellulitis, CHF Subjective: Doing well Physical Examination - Vital Signs Temperature: 98 F Blood Pressure: 128/68 Pulse: 103 Respirations: 20 Pulse Ox (%): 94 - Physical Exam General: Alert, Cooperative HEENT: Atraumatic Neck: Supple Respiratory: Clear to auscultation bilaterally, Normal air movement Cardiovascular: Normal pulses, Regular rate/rhythm Integumentary: Other (Edema to the lower extremities improved) Neurological: Normal speech, Normal strength at 5/5 x4 extr, Normal tone, Normal affect - Studies Medications List Reviewed: Yes Assessment & Plan Discharge Plan: Home Plan to discharge in: 24 Hours Physician Review Additional Text: Impression: Left recurrent diabetic foot cellulitis with chronic ulcer with noncompliance, wound culture positive for Klebsiella, E coli and Streptococcus Diabetes mellitus type 2 with hyperglycemia-noncompliant with medications Acute on chronic systolic congestive heart failure, last ejection fraction 44% Hypertension Hyperlipidemia Severe peripheral vascular disease CAD COPD Tobacco abuse Plan: Left recurrent diabetic foot cellulitis with chronic ulcer with non compliance, wound culture positive for Klebsiella, E coli and Streptococcus: Continue IV a ntibiotic therapy at this time. Wound culture reviewed. Case discussed with infectious disease. Continue with current wound care. Patient will require Levaquin at discharge. This can be done orally. Will plan for discharge tomorrow. . Diabetes mellitus type 2 with hyperglycemia non insulin-dependent: Continue to adjust NPH. Monitor Accu-Cheks. Provide sliding scale. Recent A1c 10.0. Acute on chronic systolic congestive heart failure, last ejection fraction 44%: Continue with IV diuresis. Edema improved. Will teach on fluid restriction. Anticipate discharge tomorrow on Lasix. Compliance addressed in detail. Hypertension: Continue home medication Hyperlipidemia: Continue home medication Severe peripheral vascular disease: Continued home medication. Will provide DVT prophylaxis. Patient was suppose to follow up with cardiology and CV surgery for possible bypass in the future. Bypass is non emergent. CAD: Continue medication COPD: Will provide medication Tobacco abuse: Will provide nicotine patch. Cessation addressed in detail. Time Spent Managing Pts Care (In Minutes): 55
[2020-02-18] MEDS: Levofloxacin500mg IV 500 MG/100 ML BAG IV SCH (14:17)
--- NOTE | 2020-02-18 14:43 | P.PN ---
Date of Service: 02/18/20 Subjective: Patient is a 59 year old male who has been seen multiple times for chronic wound on left foot and cellulitis. It was determined that he needed outpatient fem-pop bypass for severe PVD. Patient was also recommended to take long-acting insulin daily and follow up with General surgery as he had incision and drainage of diabetic foot wound to left foot. Patient has been noncompliant as he does not have the resources and lives in a prison. Wound cultures on 12/22 positive for Klebsiella, Enterobacter and Staph and patient was sent home with Levaquin which he reports taking. Patient now presents with worsening bilateral lower extremity swelling and erythema and worsening left foot ulcer which I have been consulted for. Patient examined at bedside. Cellulitis and left foot wound improving. Objective: Temp Pulse Resp BP Pulse Ox 98 F 103 H 20 128/68 94 02/18/20 14:04 02/18/20 14:04 02/18/20 14:04 02/18/20 14:04 02/18/20 14:04 Labs: Sodium 138, potassium 3.5, BUN 19, creatinine 0.83, albumin 3.1, WBC 5.7, hemoglobin 14.8, hematocrit 44.4 Foot xray 12/22: EXAM DESCRIPTION: RAD - Foot Left 3 View - 12/23/2019 9:35 am CLINICAL HISTORY: Pain;Swelling, history of foot infection subsequent to surgery in November. Site of wound or concern not detailed COMPARISON: Foot Left 3 View dated 11/12/2019 FINDINGS: No fracture, dislocation or periosteal reaction. No acute or destructive bony process. Wound is seen over the dorsum of the foot. There is no foreign body present. Small plantar spur is present. IMPRESSION: Soft tissue wound and soft tissue swelling present over the dorsum of the foot. Air density in the soft tissues is believed be part of the open wound and not air from a gas-forming organism. No bone destruction. Foot xray 02/10: EXAM DESCRIPTION: RAD - Foot Left 3 View - 02/11/2020 3:43 pm CLINICAL HISTORY: R/O osteo, left foot pain COMPARISON: Foot Left 3 View dated 12/23/2019; Foot Left 3 View dated 11/12/2019; Chest Single View dated 02/11/2020 FINDINGS: No fracture, dislocation or periosteal reaction. No acute or destructive bony process. Small plantar spur is present. Soft tissues remain prominent over the dorsum of the foot. Soft tissue wound has no foreign body component identifiable. IMPRESSION: No bone destruction or other evidence for osteomyelitis. No bony changes since December 22. Osteomyelitis can exist prior to radiographic bone destruction. Ongoing clinical concerns for osteomyelitis can be addressed with MR imaging. ROS: General: Awake, alert, oriented CV: S1, S2 RESP: Diminished breath sounds ABD: Round, nontender, bowel sounds present Skin: Left foot wound with minimal amount of slough, tendons exposed, yvrose area with erythema and rolled edges and serous drainage with odor present. BLLE with erythema, warmth and multiple blisters improving Assessment and plan: Left foot DFU, recommend to pack with iodoform gauze daily Lower extremity cellulitis improving, continue betadine PVD, patient needs to follow up with vascular surgeon Diabetes mellitus, monitor glycemic control Levaquin day 02/19 Educated the patient to keep leg elevated Will continue to monitor Patient discussed with Dr. Michael
[2020-02-19 04:52] LABS: BUN Blood Urea Nitrogen 17 mg/dL (7-18); Bicarbonate 30 mmol/L (21-32); Glucose Level 142 mg/dL (74-106); Potassium 3.6 mmol/L (3.5-5.1); Sodium Level 138 mmol/L (136-145)
[2020-02-19] MEDS ORDERED: POTASSIUM CL SA 10 MEQ TAB PO ONE (09:00)
[2020-02-19] MEDS: NPH (HUMAN) 100 UNITS/ML INSULIN SQ SCH (09:01)
[2020-02-19] MEDS: INSULIN -REGULAR HUMAN 50 UNIT/0.5 ML ML SQ SCH (09:02)
[2020-02-19] MEDS: FUROSEMIDE 40 MG/4 ML VIAL IV SCH (09:03)
[2020-02-19] MEDS: ENOXAPARIN 40 MG/0.4 ML SQ SCH (09:03)
[2020-02-19 09:12] VITALS: BP 116/66
--- NOTE | 2020-02-19 09:14 | P.DS ---
Admission Date: 02/12/20 Discharge Date: 02/19/20 Primary Care Provider: none Disposition: ROUTINE DISCHARGE Discharge Condition: GOOD Reason for Admission: Lower extremity cellulitis, CHF Consultations: Cardiology-Dr. Redd Infectious disease-Dr. Michael Procedures: CT scan: FINDINGS: The liver, pancreas, adrenal and kidneys appear unremarkable. Splenic granulomata There is no evidence of diverticulitis. Normal appendix Diffuse edema within the subcutaneous tissues. Small amount of ascites within the abdomen and pelvis IMPRESSION: Small amount of ascites Diffuse edema within the subcutaneous tissues CXR: COMPARISON: December 2019 FINDINGS: Mild bilateral interstitial opacities. Heart is moderately enlarged IMPRESSION: Mild CHF Doppler: FINDINGS: The common femoral, superficial femoral, and popliteal veins bilaterally are compressible and demonstrate augmentation. Doppler demonstrates good flow. IMPRESSION: No evidence of deep venous thrombosis involving either lower extremity. Foot xray: FINDINGS: No fracture, dislocation or periosteal reaction. No acute or destructive bony process. Small plantar spur is present. Soft tissues remain prominent over the dorsum of the foot. Soft tissue wound has no foreign body component identifiable. IMPRESSION: No bone destruction or other evidence for osteomyelitis. No bony changes since December 22. Osteomyelitis can exist prior to radiographic bone destruction. Medical Problem List: Left recurrent diabetic foot cellulitis with chronic ulcer with noncompliance, wound culture positive for Klebsiella, E coli and Streptococcus Diabetes mellitus type 2 with hyperglycemia-noncompliant with medications Acute on chronic systolic congestive heart failure, last ejection fraction 44% Hypertension Hyperlipidemia Severe peripheral vascular disease CAD COPD Tobacco abuse Brief History of Present Illness: 59-year-old male with multiple medical problems including CHF, hypertension, hyperlipidemia, diabetes, peripheral vascular disease, COPD and tobacco abuse. Patient also with poor compliance with follow up and medication. Patient presented with left recurrent diabetic foot cellulitis. Ulcer identified. Patient admitted for further evaluation and treatment. Hospital Course: Patient presented with left recurrent diabetic foot cellulitis with chronic ulcer. Patient with noncompliance on follow up, wound care and medications. Patient was treated with IV antibiotic therapy. Infectious Disease was also consulted. X-ray showed no evidence of osteomyelitis at this time. Wound culture was positive for Klebsiella, E coli and Streptococcus. The patient cellulitis improved. He was also debrided by infectious disease. At discharge patient will continue with Levaquin 500 mg daily for the next 7 days. Patient will continue with current wound care as recommended by infectious disease. Prior to discharge she will be taught on wound care. Recommend a follow up at the wound Care Center in 1 week to monitor his progress. It is also recommended that the patient establish care with a PCP to continue his care and monitoring. This was addressed in detail. Patient understands that if he continues to be non compliant he may develop osteomyelitis and potentially require amputation in the future. Patient also has underlying peripheral vascular disease. It is been recommended that the patient see Cardiology and CV surgery for possible bypass in the future. It would benefit for the patient to be transferred to a cardiovascular surgeon in the future if repeat admission is required. Patient also presented with acute on chronic systolic CHF. Previous ejection fraction around 44%. Patient received diuresis during the course of his stay. At discharge he will continue with a 1500 cc per day fluid restriction and low- salt diet. Patient will continue with Lasix 80 mg 1 pill twice daily. No need for Mariano inhibitor or beta sloane therapy at this time as blood pressures are well controlled. Compliance with medication addressed in detail. He may elevate his leg when sitting or lying. Recommend follow up with his PCP to further monitor. Patient with diabetes mellitus type 2 with hyperglycemia. Patient was given insulin therapy. Blood sugars now improved. At discharge patient may continue with Glucophage 500 mg 1 pill twice daily. The patient will also continue with insulin NPH 15 units subcu twice daily. Recommend to monitor blood sugar at least twice daily. Recommend to maintain blood sugar less 140 fasting and less than 200 after meals. Further adjustment can be done by his PCP. Patient to establish care to continue his progress. Patient with severe peripheral vascular disease and CAD. Recommend to continue aspirin 81 mg daily. As recommended above is important for the patient to follow up with cardiology and CV surgery in the future to consider possible bypass of the lower extremity. Patient with history of hypertension, hyperlipidemia, COPD and tobacco abuse. All have remained stable without medication. Recommend follow up with PCP to further address and monitor. Vital Signs/Physical Exam: Temp Pulse Resp BP Pulse Ox 97.2 F 103 H 18 105/50 L 97 02/19/20 04:00 02/19/20 04:00 02/19/20 04:00 02/19/20 04:00 02/19/20 04:00 General: Alert, In no apparent distress, Oriented x3, Cooperative HEENT: Atraumatic Neck: Supple Respiratory: Clear to auscultation bilaterally, Normal air movement Cardiovascular: Normal pulses, Regular rate/rhythm Gastrointestinal: Normal bowel sounds, No masses, No rebound, No guarding Musculoskeletal: No erythema, No tenderness, No warmth Integumentary: Tenderness/swelling (Swelling to the lower extremities improved. Wound to the left foot appear stable. No significant drainage noted.) Neurological: Normal speech, Normal strength at 5/5 x4 extr, Normal tone, Normal affect Laboratory Data at Discharge: WBC 5.7 K/uL (4.3-10.9) 02/13/20 05:12 Hgb 14.8 g/dL (13.6-17.9) 02/13/20 05:12 Hct 44.4 % (39.6-49.0) 02/13/20 05:12 Plt Count 129 K/uL (152-406) L 02/13/20 05:12 Sodium 138 mmol/L (136-145) 02/19/20 03:56 Potassium 3.6 mmol/L (3.5-5.1) 02/19/20 03:56 BUN 17 mg/dL (7-18) 02/19/20 03:56 Creatinine 0.75 mg/dL (0.55-1.3) 02/19/20 03:56 Glucose 142 mg/dL (74-106) H 02/19/20 03:56 Magnesium 2.0 mg/dL (1.8-2.4) 02/13/20 05:12 Total Bilirubin 0.6 mg/dL (0.2-1.0) 02/11/20 06:03 AST 32 U/L (15-37) 02/11/20 06:03 ALT 48 U/L (12-78) 02/11/20 06:03 Alkaline Phosphatase 151 U/L (45-117) H 02/11/20 06:03 Troponin I 0.07 ng/mL (0.0-0.045) H 02/12/20 05:13 Lipase 249 U/L (73-393) 02/11/20 06:03 Home Medications: Aspirin [Aspirin EC 81 MG] 81 mg PO DAILY #90 tablet. 02/19/20 Furosemide [Lasix] 80 mg PO BID #60 tablet 02/19/20 Insulin NPH Human [Novolin N (Humulin N)*] 15 units SQ BIDWM #1 vial 02/19/20 Levofloxacin [Levaquin] 500 mg PO DAILY #7 tablet 02/19/20 Metformin ER [Glucophage ER*] 500 mg PO BID #60 tab.sa 02/19/20 New Medications: Aspirin [Aspirin EC 81 MG] 81 mg PO DAILY #90 tablet. Metformin ER [Glucophage ER*] 500 mg PO BID #60 tab.sa Furosemide [Lasix] 80 mg PO BID #60 tablet Levofloxacin [Levaquin] 500 mg PO DAILY #7 tablet Insulin NPH Human [Novolin N (Humulin N)*] 15 units SQ BIDWM #1 vial Patient Discharge Instructions: 1. Recommend follow up with PCP to further monitor and address. 2. Patient presented with left recurrent diabetic foot cellulitis with chronic ulcer. Patient with noncompliance on follow up, wound care and medications. Patient was treated with IV antibiotic therapy. Infectious Disease was also consulted. X-ray showed no evidence of osteomyelitis at this time. Wound culture was positive for Klebsiella, E coli and Streptococcus. The patient cellulitis improved. He was also debrided by infectious disease. At discharge patient will continue with Levaquin 500 mg daily for the next 7 days. Patient will continue with current wound care as recommended by infectious disease. Prior to discharge she will be taught on wound care. Recommend a follow up at the wound Care Center in 1 week to monitor his progress. It is also recommended that the patient establish care with a PCP to continue his care and monitoring. This was addressed in detail. Patient understands that if he continues to be non compliant he may develop osteomyelitis and potentially require amputation in the future. Patient also has underlying peripheral vascular disease. It is been recommended that the patient see Cardiology and CV surgery for possible bypass in the future. It would benefit for the patient to be transferred to a cardiovascular surgeon in the future if repeat admission is required. 3. Patient also presented with acute on chronic systolic CHF. Previous ejection fraction around 44%. Patient received diuresis during the course of his stay. At discharge he will continue with a 1500 cc per day fluid restriction and low-salt diet. Patient will continue with Lasix 80 mg 1 pill twice daily. No need for Mariano inhibitor or beta sloane therapy at this time as blood pressures are well controlled. Compliance with medication addressed in detail. He may elevate his leg when sitting or lying. Recommend follow up with his PCP to further monitor. 4. Patient with diabetes mellitus type 2 with hyperglycemia. Patient was given insulin therapy. Blood sugars now improved. At discharge patient may continue with Glucophage 500 mg 1 pill twice daily. The patient will also continue with insulin NPH 15 units subcu twice daily. Recommend to monitor blood sugar at least twice daily. Recommend to maintain blood sugar less 140 fasting and less than 200 after meals. Further adjustment can be done by his PCP. Patient to establish care to continue his progress. 5. Patient with severe peripheral vascular disease and CAD. Recommend to continue aspirin 81 mg daily. As recommended above is important for the patient to follow up with cardiology and CV surgery in the future to consider possible bypass of the lower extremity. 6. Patient with hi story of hypertension, hyperlipidemia, COPD and tobacco abuse. All have remained stable without medication. Recommend follow up with PCP to further address and monitor. Diet: ADA Activity: Fall precautions Time spent managing pt's care (in minutes): 55
--- NOTE | 2020-02-19 09:34 | P.PN ---
Date of Service: 02/19/20 Subjective: Patient is a 59 year old male who has been seen multiple times for chronic wound on left foot and cellulitis. It was determined that he needed outpatient fem-pop bypass for severe PVD. Patient was also recommended to take long-acting insulin daily and follow up with General surgery as he had incision and drainage of diabetic foot wound to left foot. Patient has been noncompliant as he does not have the resources and [facility] a [facility]. Wound cultures on 12/22 positive for Klebsiella, Enterobacter and Staph and patient was sent home with Levaquin which he reports taking. Patient now presents with worsening bilateral lower extremity swelling and erythema and worsening left foot ulcer which I have been consulted for. Patient examined at bedside. Cellulitis and left foot wound improving. Objective: Temp Pulse Resp BP Pulse Ox 97.2 F 102 H 18 116/66 97 02/19/20 04:00 02/19/20 09:03 02/19/20 04:00 02/19/20 09:03 02/19/20 04:00 Labs: Sodium 138, potassium 3.6, BUN 17, creatinine 0.75, albumin 3.1, WBC 5.7, hemoglobin 14.8, hematocrit 44.4 Foot xray 12/22: EXAM DESCRIPTION: RAD - Foot Left 3 View - 12/23/2019 9:35 am CLINICAL HISTORY: Pain;Swelling, history of foot infection subsequent to surgery in November. Site of wound or concern not detailed COMPARISON: Foot Left 3 View dated 11/12/2019 FINDINGS: No fracture, dislocation or periosteal reaction. No acute or destructive bony process. Wound is seen over the dorsum of the foot. There is no foreign body present. Small plantar spur is present. IMPRESSION: Soft tissue wound and soft tissue swelling present over the dorsum of the foot. Air density in the soft tissues is believed be part of the open wound and not air from a gas-forming organism. No bone destruction. Foot xray 02/10: EXAM DESCRIPTION: RAD - Foot Left 3 View - 02/11/2020 3:43 pm CLINICAL HISTORY: R/O osteo, left foot pain COMPARISON: Foot Left 3 View dated 12/23/2019; Foot Left 3 View dated 11/12/2019; Chest Single View dated 02/11/2020 FINDINGS: No fracture, dislocation or periosteal reaction. No acute or destructive bony process. Small plantar spur is present. Soft tissues remain prominent over the dorsum of the foot. Soft tissue wound has no foreign body component identifiable. IMPRESSION: No bone destruction or other evidence for osteomyelitis. No bony changes since December 22. Osteomyelitis can exist prior to radiographic bone destruction. Ongoing clinical concerns for osteomyelitis can be addressed with MR imaging. ROS: General: Awake, alert, oriented CV: S1, S2 RESP: Diminished breath sounds ABD: Round, nontender, bowel sounds present Skin: Left foot wound with dressing CDI. BLLE with erythema, warmth and multiple blisters improving Assessment and plan: Left foot DFU, recommend to pack with iodoform gauze daily Lower extremity cellulitis improving, continue betadine PVD, patient needs to follow up with vascular surgeon Diabetes mellitus, monitor glycemic control Levaquin day 03/22 Educated the patient to keep leg elevated Will continue to monitor Patient discussed with Dr. Michael
[2020-02-19 09:36] VITALS: O2SAT 94
[2020-02-19 10:31] VITALS: TEMP 97.6
== END 2020-02-19 10:06 | disposition home or self-care (01) | DRG 637 ==
LOC: ER 05:25 → ERHOLD 11:06 → 2ND 12:52 → OBSVTOIN 02-12 08:47
PROVIDERS: ADMIT Internal Medicine; ATTEND Family Medicine
DX: E11.628 Type 2 diabetes mellitus with other skin complications (principal); I50.23 Acute on chronic systolic (congestive) heart failure; L03.116 Cellulitis of left lower limb; E11.621 Type 2 diabetes mellitus with foot ulcer; L97.529 Non-pressure chronic ulcer of other part of left foot with unspecified severity; E78.5 Hyperlipidemia, unspecified; J44.9 Chronic obstructive pulmonary disease, unspecified; E11.65 Type 2 diabetes mellitus with hyperglycemia; I25.10 Atherosclerotic heart disease of native coronary artery without angina pectoris; I11.0 Hypertensive heart disease with heart failure; E11.51 Type 2 diabetes mellitus with diabetic peripheral angiopathy without gangrene; F17.210 Nicotine dependence, cigarettes, uncomplicated; E11.40 Type 2 diabetes mellitus with diabetic neuropathy, unspecified; I83.025 Varicose veins of left lower extremity with ulcer other part of foot; B96.20 Unspecified Escherichia coli [E. coli] as the cause of diseases classified elsewhere; B96.1 Klebsiella pneumoniae [K. pneumoniae] as the cause of diseases classified elsewhere; B95.5 Unspecified streptococcus as the cause of diseases classified elsewhere; Z95.5 Presence of coronary angioplasty implant and graft; Z79.84 Long term (current) use of oral hypoglycemic drugs; Z91.14 Patient's other noncompliance with medication regimen; Z59.0 Homelessness; Z20.828 Contact with and (suspected) exposure to other viral communicable diseases
CPT/HCPCS: 36415; 71045; 74177; 80048; 80053; 80202; 80320; 82140; 82947; 83036; 83605; 83690; 83735; 83880; 84145; 84484; 85025; 85652; 87040; 87070; 87077; 87186; 87205; 93005; 93970; 96374; 97116; 97161; 99285; G0378; J0696; J1650; J1815; J1940; J3370; J3480; J7040; Q9967; U0002

== ENCOUNTER 2020-02-29 15:17 | Emergency (ER) | payer OTHER, SELFPAY ==
--- OUTSIDE RECORDS SUMMARY | 2020-02-29 15:19 | XMS REPORT | Continuity of Care Document ---
:1960 Author Organization [facility] t Address [address] [place] [address] [address]. [address] [place] [address] Care Team Providers Name Role Phone Unavailable Unavailable Unavailable Problems This patient has no known problems. Allergies, Adverse Reactions, Alerts This patient has no known allergies or adverse reactions. Medications This patient has no known medications. Procedures This patient has no known procedures. Results This patient has no known results.
[2020-02-29 16:30] LABS: Basophils % 0.8 % (0-1.3); Hematocrit 45.6 % (39.6-49.0); Lymphocytes % 16.9 % (15.3-44.8); MPV 9.4 fL (7.6-11.3); RBC Red Blood Cell Count 4.71 M/uL (4.33-5.43)
[2020-02-29 16:44] LABS: BUN Blood Urea Nitrogen 13 mg/dL (7-18); Bicarbonate 27 mmol/L (21-32); Glucose Level 235 mg/dL (74-106); Potassium 4.1 mmol/L (3.5-5.1); Sodium Level 137 mmol/L (136-145)
[2020-02-29] MEDS ORDERED: levoFLOXacin 750 MG TAB ONE (16:55)
--- NOTE | 2020-02-29 16:55 | ER ---
Nurse's Notes [facility] Name: Clifton Sahu Jr Age: 59 yrs Sex: Male : 1960 Arrival Date: 02/29/2020 Time: 15:26 Bed 5 Private MD: Diagnosis: Type 2 diabetes mellitus;Cellulitis and acute lymphangitis of other parts of limb-lower extremities;Obesity, unspecified;Tobacco abuse counseling;Tobacco use Presentation: 02/28 15:20 Chief complaint: EMS states: Pt is from [facility], A \T\ O x 4, was concerned about rb1 having an infection in his legs. Wound tested positive for Klebsiella, E. Coli, and Streptococcus on February 18. Denies fever, T 98.1 oral, BP 125/59, P 100, 99% RA, BGL 312. Pt reports blood sugar is always all over the place. History of NIDD and CHF. 15:20 Coronavirus screen: Client denies travel out of the [place] in the last 14 days. At this rb1 time, the client does not indicate any symptoms associated with coronavirus-19. Ebola Screen: Patient denies travel to an Ebola-affected area in the 21 days before illness onset. Onset of symptoms is unknown. 15:20 Method Of Arrival: EMS: [facility] 15:20 Acuity: MOLLY 3 rb1 15:20 Initial Sepsis Screen: Does the patient meet any 2 criteria? No. Patient's initial rb1 sepsis screen is negative. Does the patient have a suspected source of infection? Yes: Skin breakdown/wound. 15:20 Risk Assessment: Do you want to hurt yourself or someone else? Patient reports no rb1 desire to harm self or others. Triage Assessment: 15:20 General: Appears in no apparent distress. comfortable, Behavior is calm, cooperative. rb1 General: Denies fever, feeling ill. Neuro: Level of Consciousness is awake, alert, obeys commands, Oriented to person, place, time, situation. Cardiovascular: Capillary refill < 3 seconds. Respiratory: Airway is patent Respiratory effort is even, unlabored, Respiratory pattern is regular, symmetrical. Respiratory: Denies cough, shortness of breath. GI: No signs and/or symptoms were reported involving the gastrointestinal system. : No signs and/or symptoms were reported regarding the genitourinary system. Derm: scabs noted on arms and legs. Bilateral legs are red. 15:20 Pain: Complains of pain in right leg and left leg Pain currently is 8 out of 10 on a rb1 pain scale. Pain began gradually. Historical: - Allergies: 15:20 No Known Allergies; rb1 - PMHx: 15:20 Diabetes - NIDDM; Hypertension; rb1 - Immunization history:: Adult Immunizations unknown. - Social history:: Smoking status: Patient reports the use of cigarette tobacco products, smokes one-half pack cigarettes per day. Screenin:20 Abuse screen: Denies threats or abuse. Nutritional screening: No deficits noted. rb1 Tuberculosis screening: No symptoms or risk factors identified. Fall Risk None identified. Assessment: 15:20 General: See triage assessment. rb1 16:20 Reassessment: Patient appears in no apparent distress at this time. No changes from rb1 previously documented assessment. 17:09 Reassessment: Gave the pt. [employer] number to call for transportation. rb1 Discharge pending due to transportation. 17:20 Reassessment: Patient appears in no apparent distress at this time. Patient and/or rb1 family updated on plan of care and expected duration. Pain level reassessed. Patient is alert, oriented x 3, equal unlabored respirations, skin warm/dry/pink. 17:38 Reassessment: Discharge still pending due to transportation arrangements. rb1 Vital Signs: 15:20 BP 125 / 85; Pulse 104; Resp 18; Temp 99.2; Pulse Ox 97% ; Weight 127.01 kg; Height 5 rb1 ft. 11 in. (180.34 cm); Pain 8/10; 15:20 BP 125 / 85; Pulse 104; Resp 18; Temp 99.2; Pulse Ox 97% on R/A; Weight 127.01 kg; rb1 Height 5 ft. 11 in. (180.34 cm) (R); Pain 8/10; 16:20 BP 124 / 82; Pulse 101; Resp 19; Pulse Ox 99% ; rb1 17:19 BP 127 / 84; Pulse 102; Resp 18; Pulse Ox 99% on R/A; rb1 15:20 Body Mass Index 39.05 (127.01 kg, 180.34 cm) rb1 ED Course: 15:20 Arm band placed on right wrist. rb1 15:20 Patient has correct armband on for positive identification. Bed in low position. Call rb1 light in reach. Side rails up X 1. Pulse ox on. NIBP on. 15:26 Patient arrived in ED. rb1 15:26 Khushbu Starr, RN is Primary Nurse. rb1 15:27 Ignacio Zuniga MD is Attending Physician. [facility] 15:32 Triage completed. rb1 16:20 Initial lab(s) drawn, by ca, sent to lab. kj1 16:20 Inserted saline lock: 20 gauge in right antecubital area, using aseptic technique. kj1 Blood collected. 16:54 Blaise Ireland MD is Referral Physician. leoncio 16:54 Pepito Eddy DO is Referral Physician. leoncio 17:42 No provider procedures requiring assistance completed. rb1 17:42 IV discontinued, intact, bleeding controlled, No redness/swelling at site. Pressure rb1 dressing applied. Administered Medications: 16:47 Drug: LevOfloxacin 750 mg Route: PO; rb1 17:30 Follow up: Response: No adverse reaction rb1 17:36 Drug: Bactroban Ointment 2 % 1 application Route: Topical; Site: affected area; rb1 17:40 Drug: Bactrim (160 mg-800 mg (DS) 1 tablet Route: PO; rb1 17:40 Follow up: Response: Medication administered at discharge. rb1 Outcome: 16:54 Discharge ordered by . [facility] 17:42 Discharged to home ambulatory. rb1 17:42 Condition: stable 17:42 Discharge instructions given to patient, Instructed on discharge instructions, follow up and referral plans. medication usage, Demonstrated understanding of instructions, follow-up care, medications, Prescriptions given X 3. 17:42 Patient left the ED. rb1 Signatures: Ignacio Zuniga MD MD [facility] Khushbu Starr, GRETCHEN RN rb1 Jes Diana kj1 Corrections: (The following items were deleted from the chart) 17:53 17:52 Patient left the ED. rb1 rb1
--- NOTE | 2020-02-29 16:55 | EDPHYS ---
Physician Documentation [facility] Name: Clifton Sahu Jr Age: 59 yrs Sex: Male : 1960 Arrival Date: 02/29/2020 Time: 15:26 Bed 5 Private MD: ED Physician Ignacio Zuniga HPI: 02/28 15:57 This 59 yrs old Male presents to ER via EMS with complaints of Bilateral leg leoncio swelling. 15:57 The patient presents with pain, that is acute. The complaints affect the right leg, leoncio lateral aspect of left calf, left calf, medial aspect of left calf and left simeon. Context: resulted from an unknown cause. Onset: The symptoms/episode began/occurred 3 week(s) ago. Modifying factors: The symptoms are alleviated by elevating leg, the symptoms are aggravated by movement, weight bearing. Associated signs and symptoms: The patient has no apparent associated signs or symptoms. Severity of symptoms: At their worst the symptoms were mild, in the emergency department the symptoms are unchanged. The patient has experienced similar episodes in the past, multiple times. Historical: - Allergies: 15:20 No Known Allergies; rb1 - PMHx: 15:20 Diabetes - NIDDM; Hypertension; rb1 - Immunization history:: Adult Immunizations unknown. - Social history:: Smoking status: Patient reports the use of cigarette tobacco products, smokes one-half pack cigarettes per day. ROS: 15:59 Constitutional: Negative for fever, chills, and weight loss, Eyes: Negative for injury, leoncio pain, redness, and discharge, ENT: Negative for injury, pain, and discharge, Neck: Negative for injury, pain, and swelling, Cardiovascular: Negative for chest pain, palpitations, and edema, Respiratory: Negative for shortness of breath, cough, wheezing, and pleuritic chest pain, Abdomen/GI: Negative for abdominal pain, nausea, vomiting, diarrhea, and constipation, Back: Negative for injury and pain, : Negative for injury, bleeding, discharge, and swelling, Neuro: Negative for headache, weakness, numbness, tingling, and seizure, Psych: Negative for depression, anxiety, suicide ideation, homicidal ideation, and hallucinations, Allergy/Immunology: Negative for hives, rash, and allergies, Endocrine: Negative for neck swelling, polydipsia, polyuria, polyphagia, and marked weight changes, Hematologic/Lymphatic: Negative for swollen nodes, abnormal bleeding, and unusual bruising. 15:59 MS/extremity: Positive for erythema, pain, swelling, tenderness, of the right leg and left leg. 15:59 Skin: Positive for erythema, swelling, of the right leg and left leg. Exam: 15:59 Constitutional: This is a well developed, well nourished patient who is awake, alert, leoncio and in no acute distress. Head/Face: Normocephalic, atraumatic. Eyes: Pupils equal round and reactive to light, extra-ocular motions intact. Lids and lashes normal. Conjunctiva and sclera are non-icteric and not injected. Cornea within normal limits. Periorbital areas with no swelling, redness, or edema. ENT: Nares patent. No nasal discharge, no septal abnormalities noted. Tympanic membranes are normal and external auditory canals are clear. Oropharynx with no redness, swelling, or masses, exudates, or evidence of obstruction, uvula midline. Mucous membranes moist. Neck: Trachea midline, no thyromegaly or masses palpated, and no cervical lymphadenopathy. Supple, full range of motion without nuchal rigidity, or vertebral point tenderness. No Meningismus. Chest/axilla: Normal chest wall appearance and motion. Nontender with no deformity. No lesions are appreciated. Cardiovascular: Regular rate and rhythm with a normal S1 and S2. No gallops, murmurs, or rubs. Normal PMI, no JVD. No pulse deficits. Respiratory: Lungs have equal breath sounds bilaterally, clear to auscultation and percussion. No rales, rhonchi or wheezes noted. No increased work of breathing, no retractions or nasal flaring. Abdomen/GI: Soft, non-tender, with normal bowel sounds. No distension or tympany. No guarding or rebound. No evidence of tenderness throughout. Back: No spinal tenderness. No costovertebral tenderness. Full range of motion. Male : Normal genitalia with no discharge or lesions. Skin: Warm, dry with normal turgor. Normal color with no rashes, no lesions, and no evidence of cellulitis. Neuro: Awake and alert, GCS 15, oriented to person, place, time, and situation. Cranial nerves II-XII grossly intact. Motor strength 5/5 in all extremities. Sensory grossly intact. Cerebellar exam normal. Normal gait. Psych: Awake, alert, with orientation to person, place and time. Behavior, mood, and affect are within normal limits. 15:59 Musculoskeletal/extremity: ROM: full active range of motion, full passive range of motion, in the right leg and left leg, Pulses: noted to be 4+ in the bilateral radial, brachial, femoral, popliteal, posterior tibial and and dorsalis pedis arteries., Sensation intact. Compartment Syndrome exam of affected extremity: is normal. DVT Exam: negative Homans' sign noted on exam, no appreciated bluish discoloration, pain, swelling, tenderness, erythema, increased warmth. Vital Signs: 15:20 BP 125 / 85; Pulse 104; Resp 18; Temp 99.2; Pulse Ox 97% ; Weight 127.01 kg; Height 5 rb1 ft. 11 in. (180.34 cm); Pain 8/10; 15:20 BP 125 / 85; Pulse 104; Resp 18; Temp 99.2; Pulse Ox 97% on R/A; Weight 127.01 kg; rb1 Height 5 ft. 11 in. (180.34 cm) (R); Pain 8/10; 16:20 BP 124 / 82; Pulse 101; Resp 19; Pulse Ox 99% ; rb1 17:19 BP 127 / 84; Pulse 102; Resp 18; Pulse Ox 99% on R/A; rb1 15:20 Body Mass Index 39.05 (127.01 kg, 180.34 cm) rb1 MDM: 15:27 Patient medically screened. leoncio 16:04 Differential diagnosis: abrasion. Data reviewed: vital signs, nurses notes, lab test leoncio result(s), CBC, electrolytes. Data interpreted: site monitor: not applicable for this patient encounter. rate is 104 beats/min, rhythm is regular, Pulse oximetry: on room air is 97 %. Counseling: I had a detailed discussion with the patient and/or guardian regarding: the historical points, exam findings, and any diagnostic results supporting the discharge/admit diagnosis, the need for outpatient follow up, for definitive care. ED course: pt explained importance of keeping glucose under control. 16:13 ED course: explained importance of good hygeine, not smoking and taking all abx. leoncio 02/28 15:56 Order name: CBC with Diff leoncio 02/28 15:56 Order name: Chem 7 [facility] 02/28 15:57 Order name: CBC with Automated Diff; Complete Time: 16:54 [facility] 08 15:57 Order name: Basic Metabolic Panel; Complete Time: 16:54 [facility] 02/28 15:56 Order name: IV Saline Lock; Complete Time: 16:43 leoncio Administered Medications: 16:47 Drug: LevOfloxacin 750 mg Route: PO; rb1 17:30 Follow up: Response: No adverse reaction rb1 17:36 Drug: Bactroban Ointment 2 % 1 application Route: Topical; Site: affected area; rb1 17:40 Drug: Bactrim (160 mg-800 mg (DS) 1 tablet Route: PO; rb1 17:40 Follow up: Response: Medication administered at discharge. rb1 Disposition: 02/29/20 16:54 Discharged to Home. Impression: Type 2 diabetes mellitus, Cellulitis and acute lymphangitis of other parts of limb - lower extremities, Obesity, unspecified, Tobacco abuse counseling, Tobacco use. - Condition is Stable. - Discharge Instructions: Type 2 Diabetes Mellitus, Diagnosis, Adult, Obesity, Adult, Steps to Quit Smoking, Smoking Hazards, Cellulitis, Adult, [id number], Steps to Quit Smoking, [id number]-[id number], Type 2 Diabetes Mellitus, Diagnosis, Adult, Gyun-jc-[id number], Obesity, Adult, [id number]-[id number]. - Prescriptions for Bactroban 2 % Topical Ointment - Apply to affected area 1 application by TOPICAL route every 12 hours; 30 gram. Levaquin 500 mg Oral Tablet - take 1 tablet by ORAL route once daily for 10 days; 10 tablet. Bactrim DS 800- 160 mg Oral Tablet - take 1 tablet by ORAL route every 12 hours for 10 days; 20 tablet. - Medication Reconciliation Form, Thank You Letter, Antibiotic Education, Prescription Opioid Use form. - Follow up: Private Physician; When: 2 - 3 days; Reason: Recheck today's complaints, Continuance of care, Re-evaluation by your physician. Follow up: Blaise Ireland; When: 2 - 3 days; Reason: Recheck today's complaints, Continuance of care, Re-evaluation by your physician. Follow up: Pepito Eddy; When: 2 - 3 days; Reason: Recheck today's complaints, Re-evaluation by your physician. - Problem is new. - Symptoms have improved. Signatures: Dispatcher [employer] [facility] Ignacio Zuniga MD MD cha Barber, Rebecca, RN RN rb1 Corrections: (The following items were deleted from the chart) 17:52 16:54 02/29/2020 16:54 Discharged to Home. Impression: Type 2 diabetes mellitus; rb1 Cellulitis and acute lymphangitis of other parts of limb - lower extremities; Obesity, unspecified; Tobacco abuse counseling; Tobacco use. Condition is Stable. Discharge Instructions: Type 2 Diabetes Mellitus, Diagnosis, Adult, Obesity, Adult, Steps to Quit Smoking, Smoking Hazards, Cellulitis, Adult, Ziuu-wy-Ukff, Steps to Quit Smoking, Layp-uw-Eyhp, Type 2 Diabetes Mellitus, Diagnosis, Adult, Gyoa-jg-Ifgg, Obesity, Adult, [id number]. Prescriptions for Bactroban 2 % Topical Ointment - Apply to affected area 1 application by TOPICAL route every 12 hours; 30 gram, Levaquin 500 mg Oral Tablet - take 1 tablet by ORAL route once daily for 10 days; 10 tablet, Bactrim DS 800-160 mg Oral Tablet - take 1 tablet by ORAL route every 12 hours for 10 days; 20 tablet. and Forms are Medication Reconciliation Form, Thank You Letter, Antibiotic Education, Prescription Opioid Use. Follow up: Private Physician; When: 2 - 3 days; Reason: Recheck today's complaints, Continuance of care, Re-evaluation by your physician. Follow up: Blaise Ireland; When: 2 - 3 days; Reason: Recheck today's complaints, Continuance of care, Re-evaluation by your physician. Follow up: Pepito Eddy; When: 2 - 3 days; Reason: Recheck today's complaints, Re-evaluation by your physician. Problem is new. Symptoms have improved. leoncio
[2020-02-29] MEDS ORDERED: MUPIROCIN 2% OINT 22GM TUBE TOP ONE (17:41)
[2020-02-29] MEDS ORDERED: SMZ./TMP. 800/160 MG TABLET ONE (17:50)
== END 2020-02-29 17:52 | disposition home or self-care (01) ==
LOC: ER 15:17
DX: L03.116 Cellulitis of left lower limb (principal); L03.115 Cellulitis of right lower limb; L03.126 Acute lymphangitis of left lower limb; L03.125 Acute lymphangitis of right lower limb; E11.9 Type 2 diabetes mellitus without complications; E66.9 Obesity, unspecified; Z72.0 Tobacco use; Z71.6 Tobacco abuse counseling; I10 Essential (primary) hypertension
CPT/HCPCS: 36415; 80048; 85025; 99284

== ENCOUNTER 2020-07-13 21:33 | Emergency (ER) | payer SELFPAY ==
--- OUTSIDE RECORDS SUMMARY | 2020-07-13 21:38 | XMS REPORT | Continuity of Care Document ---
:1960 Author Organization [facility] t Address [address] [place] [address] [address] [place] [address] Care Team Providers Name Role Phone Unavailable Unavailable Unavailable Problems This patient has no known problems. Allergies, Adverse Reactions, Alerts This patient has no known allergies or adverse reactions. Medications This patient has no known medications. Procedures This patient has no known procedures. Results This patient has no known results.
[2020-07-13 21:59] LABS: Absolute Lymphocytes (CBC) 0.5 K/uL (0.7-4.9); Basophils % 0.3 % (0-1.3); Hematocrit 55.1 % (39.6-49.0); MPV 9.6 fL (7.6-11.3); RBC Red Blood Cell Count 5.54 M/uL (4.33-5.43)
[2020-07-13] MEDS ORDERED: FUROSEMIDE 100 MG/10 ML VIAL IV ONE (22:01)
[2020-07-13 22:05] LABS: Arterial Blood Carboxyhemoglob 1.3 % (0-1.5); Blood Gas Oxyhemoglobin 94.1 % (94-97)
[2020-07-13] MEDS ORDERED: DIGOXIN 0.25 MG/ML AMP ONE (22:14)
[2020-07-13] MEDS ORDERED: LIDOCAINE VISCOUS 2% SOLN 15 ML UDC ONE (22:29)
[2020-07-13 22:37] LABS: Blood Morphology Comment NOTED (NOT SEEN); Burr Cells 3+; Platelet Estimate ADEQ
[2020-07-13 22:47] LABS: Albumin 3.2 g/dL (3.4-5.0); Bilirubin Direct 2.9 mg/dL (0-0.2); Protein, Total 8.3 g/dL (6.4-8.2); Troponin (Emerg Dept Use Only) 0.18 ng/mL (0.0-0.045)
[2020-07-13 22:48] LABS: Potassium 5.7 mmol/L (3.5-5.1)
[2020-07-13 23:31] LABS: SARS-COV-2 RT PCR NEGATIVE (NEGATIVE)
[2020-07-14] MEDS ORDERED: Levofloxacin 750mg IV 750 MG/150 ML BAG IV ONE (00:39)
--- NOTE | 2020-07-14 00:47 | EDPHYS ---
Physician Documentation [facility] Name: Clifton Sahu Jr Age: 60 yrs Sex: Male : 1960 Arrival Date: 07/13/2020 Time: 21:34 Bed 5 Private MD: ED Physician Alvarez Dunn HPI: 07/13 21:41 This 60 yrs old Male presents to ER via EMS with complaints of Shortness Of rn Breath. 21:41 The patient has shortness of breath at rest, with light activity. Onset: The rn symptoms/episode began/occurred 1 week(s) ago. Duration: The symptoms are continuous. The patient's shortness of breath is aggravated by coughing, light activity, supine position, talking, is alleviated by sitting up. Associated signs and symptoms: Pertinent positives: productive cough, fever, Pertinent negatives: hemoptysis, loss of consciousness. Severity of symptoms: At their worst the symptoms were moderate in the emergency department the symptoms are unchanged. The patient has experienced similar episodes in the past. The patient has not recently seen a physician. Reports 1 week of worsening sob, + cough, + fever, told EMS used to take lasix but ran out. No chest pain. Worse when laying flat, Reports leg swelling "forever". No hemoptysis. . Historical: - Allergies: 21:34 No Known Allergies; sg - PMHx: 21:34 Diabetes - NIDDM; Hypertension; sg - Immunization history:: Adult Immunizations not up to date. - Social history:: Smoking status: Patient reports the use of cigarette tobacco products. - Family history:: not pertinent. - Hospitalizations: : No recent hospitalization is reported. 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 Exam: 21:44 Constitutional: Overweight male, cyanotic from head to feet Head/Face: Normocephalic, rn atraumatic. ENT: dry MM, no stridor Cardiovascular: Tachycardic, irregular Respiratory: + moderate tachypnea, diminished at bases, faint wheezing Abdomen/GI: soft, non-tender Skin: Cool, dry, + cyanosis entire body MS/ Extremity: Pulses equal, weak peripherally, + 2+ pitting edema bilateral lower ext with chronic wounds. Neuro: Awake and alert, GCS 15, oriented to person, place, time, and situation. Vital Signs: 21:37 BP 135 / 118; Pulse 122; Resp 30; Pulse Ox 92% ; Weight 145.15 kg; Height 5 ft. 11 in. ea (180.34 cm); 22:53 BP 112 / 74; Pulse 66; Resp 18; Temp 98.6; Pulse Ox 96% on R/A; ea 23:55 BP 133 / 97; Pulse 152; Resp 17; Pulse Ox 98% on 2 lpm NC; rv 07/14 01:09 BP 134 / 84; Pulse 147; Resp 14; Pulse Ox 97% on 2 lpm NC; ea 02:00 BP 134 / 84; Pulse 60; Resp 19; Pulse Ox 97% on R/A; ea 03:14 BP 126 / 95; Pulse 146; Resp 18; Pulse Ox 98% ; ea 05:43 BP 101 / 59; Pulse 137; Resp 19; Temp 98.2; Pulse Ox 98% on 2 lpm NC; ea 07:40 Pulse 122; Resp 16; ph 08:48 BP 115 / 50; Pulse 139; Resp 18; Pulse Ox 95% on 2 lpm NC; tw2 09:48 BP 110 / 85; Pulse 130; Resp 19; Pulse Ox 95% on R/A; tw2 10:48 BP 103 / 76; Pulse 122; Resp 19; Pulse Ox 95% on R/A; tw2 12:00 BP 90 / 79; Pulse 134; Resp 15; Pulse Ox 97% on R/A; tw2 07/13 21:37 Body Mass Index 44.63 (145.15 kg, 180.34 cm) ea MDM: 07/13 21:35 Patient medically screened. rn 21:44 ED course: Pt refuses bipap, placed on high flow by RT.. rn 07/14 00:42 Differential diagnosis: CHF exacerbation, Chronic Obstructive Pulmonary Disease rn Myocardial Infarction pneumonia, Pneumothorax pulmonary edema, COVID, pulmonary edema, anasarca. Data reviewed: vital signs, nurses notes, lab test result(s), EKG, radiologic studies, plain films, and as a result, I will admit patient. Test interpretation: by ED physician or midlevel provider: ECG, plain radiologic studies, CXR shows bilateral pulmonary edema with superimposed infiltrates. Counseling: I had a detailed discussion with the patient and/or guardian regarding: the historical points, exam findings, and any diagnostic results supporting the discharge/admit diagnosis, lab results, radiology results, the need for further work-up and treatment in the hospital. Response to treatment: the patient's symptoms have mildly improved after treatment, and as a result, I will admit patient. Admission orders: after a detailed discussion of the patient's condition and case, the admit orders are written by me. 02:13 ED course: Pt began to complain of nausea, medicated, still threw up a couple of times, rn appeared to be coffee-ground emesis, gastrocult + for blood, hemoglobin 17.5, likely just started to have some blood. Protonix drip started, not anticoagulated for his afib, and hospitalist requests transfer given no GI. Will attempt transfer for ICU level care. . 02:40 ED course: [facility] declines transfer due to capacity. . rn 03:08 ED course: All hospitals we have contacted are at capacity and decline transfer. We rn have tried [facility] and surrounding hospitals, [facility], [facility], [facility], [facility] system. Will continue to look for locations to transfer to. . 03:20 ED course: Contacting [facility] to help facilitate transfer. rn 04:30 ED course: Pt unable to take PO pills, sotalol changed to lopressor IV. . rn 07/13 21:36 Order name: Basic Metabolic Panel; Complete Time: 22:49 rn 07/13 21:36 Order name: CBC with Diff; Complete Time: 22:41 rn 07/13 21:36 Order name: LFT's; Complete Time: 22:49 rn 07/13 21:36 Order name: NT PRO-BNP; Complete Time: 22:49 rn 07/13 21:36 Order name: Troponin (emerg Dept Use Only); Complete Time: 22:49 rn 07/13 21:36 Order name: Blood Culture Adult (2) rn 07/13 21:36 Order name: Procalcitonin; Complete Time: 22:41 rn 07/13 21:36 Order name: Lactate; Complete Time: 22:37 rn 07/13 21:36 Order name: ABG; Complete Time: 22:19 rn 07/13 21:36 Order name: CRP; Complete Time: 22:49 rn 07/13 22:00 Order name: Manual Differential; Complete Time: 22:41 EDMS 07/13 23:32 Order name: COVID-19/FLU A+B; Complete Time: 23:35 EDMS 07/13 21:36 Order name: XRAY Chest (1 view) rn 07/13 21:36 Order name: BIPAP rn 07/13 22:51 Order name: CT Abd/Pelvis - Without Contrast rn 07/14 02:16 Order name: Lactate Sepsis 2 HR Follow-up; Complete Time: 02:21 EDMS 07/14 08:44 Order name: CBC with Diff; Complete Time: 10:19 kdr 07/14 09:44 Order name: CBC Smear Scan; Complete Time: 10:19 EDMS 07/13 21:36 Order name: EKG; Complete Time: 21:37 rn 07/13 21:36 Order name: Cardiac monitoring; Complete Time: 21:49 rn 07/13 21:36 Order name: EKG - Nurse/Tech; Complete Time: 21:49 rn 07/13 21:36 Order name: IV Saline Lock; Complete Time: 21:49 rn 07/13 21:36 Order name: Labs collected and sent; Complete Time: 21:49 rn 07/13 21:36 Order name: O2 Per Protocol; Complete Time: 21:49 rn 07/13 21:36 Order name: O2 Sat Monitoring; Complete Time: 21:49 rn Administered Medications: 07/13 21:44 Not Given (Duplicate Order): Nitroglycerin Ointment 2 % 1 inches Transdermal once rn 22:00 Drug: Lasix 60 mg Route: IVP; Site: left antecubital; rv 07/14 00:31 Follow up: Response: No adverse reaction ea 07/13 22:00 Drug: Digoxin 0.25 mg Route: IVP; Site: left antecubital; rv 07/14 00:32 Follow up: Response: No adverse reaction ea 00:34 Drug: Zofran (Ondansetron) 4 mg Route: IVP; Site: left antecubital; ea 01:00 Follow up: Response: No adverse reaction ea 00:36 Drug: LevaQUIN 750 mg Volume: 150 ml; Route: IVPB; Infused Over: 90 mins; Site: left ea antecubital; 02:30 Follow up: Response: No adverse reaction; IV Status: Completed infusion ea 01:07 Drug: Digoxin 0.25 mg Route: IVP; Site: left antecubital; ea 01:30 Follow up: Response: No adverse reaction ea 01:13 Drug: Metoprolol TARTRATE (Lopressor) 50 mg Route: PO; ea 02:30 Follow up: Response: No adverse reaction ea 01:54 Drug: Sotalol 80 mg Route: PO; ea 02:30 Follow up: Response: No adverse reaction ea 01:55 Drug: Phenergan 12.5 mg Route: IVP; Site: left antecubital; ea 02:15 Follow up: Response: No adverse reaction ea 02:11 CANCELLED (Duplicate Order): Heparin (ND-Bolus with thrombolytic) - HEParin 60 units/kg la1 IVP once; Max 4000 units 02:11 CANCELLED (Duplicate Order): Heparin (ND Drip) 12 units/kg/hr - (HEParin 95295 units, la1 D5W 500 ml) IV at calculated rate Per protocol; Max initial rate 1000 units/hr 02:28 Drug: ProTONIX 40 mg Route: IVP; Site: left antecubital; ea 04:36 Follow up: Response: No adverse reaction ea 02:31 Drug: ProTONIX 8 mg/hr Route: IV; Rate: 25 ml/hr; Site: left antecubital; ea 05:02 Follow up: Response: No adverse reaction; IV Status: Infusion continued upon transfer ea 03:15 CANCELLED (vomiting): Sotalol 80 mg PO once rn 03:18 Drug: Zofran (Ondansetron) 4 mg Route: IVP; Site: left antecubital; ea 04:36 Follow up: Response: No adverse reaction; Nausea is decreased ea 04:02 Drug: Octreotide Infusion (50 mcg/hr) - (Octreotide 500 mcg, NS 0.9% 500 ml) Route: IV; ea Rate: 50 ml/hr; Site: left antecubital; 04:36 Follow up: IV Status: Completed infusion ea 04:07 Drug: Octreotide 50 mcg Route: IV; Rate: calculated rate; Site: left antecubital; rv 04:36 Follow up: IV Status: Completed infusion ea 04:35 Drug: Lopressor 5 mg Route: IVP; Site: left antecubital; ea 05:02 Follow up: Response: No adverse reaction ea Disposition: 07/14/20 03:[address] [facility]. Diagnosis are Anasarca, Hematemesis, Pneumonia, unspecified organism, Unspecified cirrhosis of liver, Persistent atrial fibrillation. - Reason for transfer: Higher level of care. - Accepting physician is Dr. Mcknight. - Condition is Fair. - Problem is new. - Symptoms are unchanged. Signatures: Dispatcher [employer] EDMS Renetta Nguyen, GRETCHEN GODINEZ dm5 Ismael Garcia RN RN sg Alvarez Dunn MD MD kdr Nieto, Roman, MD MD rn Arley, Brandon, ANESTHESIOLOGY MEDICAL DOCTOR-C ANESTHESIOLOGY MEDICAL DOCTOR-Cla1 Lilly Mackenzie RN RN ea Vicente, Ronaldo, RN RN rv Corrections: (The following items were deleted from the chart) 07/13 21:57 21:37 CORONAVIRUS+MR.LAB.BRZ ordered. EDMS EDMS 21:57 21:37 Influenza Screen (A \\T\\ B)+BA.LAB.BRZ ordered. EDMS EDMS 22:41 21:44 Constitutional: Overweight male, cyanotic from head to feet Head/Face: rn Normocephalic, atraumatic. ENT: dry MM, no stridor Cardiovascular: Tachycardic, irregular Respiratory: + moderate tachypnea, diminished at bases, faint wheezing Abdomen/GI: soft, non-tender Skin: Cool, dry, + cyanosis entire body MS/ Extremity: Pulses equal, weak peripherally Neuro: Awake and alert, GCS 15, oriented to person, place, time, and situation. rn 07/14 00:42 07/13 21:44 Constitutional: Overweight male, cyanotic from head to feet Head/Face: rn Normocephalic, atraumatic. ENT: dry MM, no stridor Cardiovascular: Tachycardic, irregular Respiratory: + moderate tachypnea, diminished at bases, faint wheezing Abdomen/GI: soft, non-tender Skin: Cool, dry, + cyanosis entire body MS/ Extremity: Pulses equal, weak peripherally, + 2+ pitting edema bilateral lower ext with chronic wounds. Neuro: Awake and alert, GCS 15, oriented to person, place, time, and situation. rn 07/14 02:11 02:04 Heparin (ND-Bolus with thrombolytic) - HEParin 60 units/kg IVP once; Max 4000 la1 units ordered. la1 02:11 02:04 Heparin (ND Drip) 12 units/kg/hr - (HEParin 77942 units, D5W 500 ml) IV at la1 calculated rate Per protocol; Max initial rate 1000 units/hr ordered. la1 02:41 00:46 Hospitalization Ordered by Pepito Eddy DO for Inpatient Admission. Preliminary rn diagnosis is Anasarca; Pneumonia, unspecified organism; Unspecified combined systolic (congestive) and diastolic (congestive) heart failure; Persistent atrial fibrillation - With rapid ventricular rate. Bed requested for Telemetry/MedSurg (Inpatient). Status is Inpatient Admission. Condition is Stable. Problem is new. Symptoms have improved. rn :11 03:08 ED course: All hospitals we have contacted are at capacity and decline transfer. rn We have tried [facility], [facility], [facility], [facility], [facility] system[facility] Will continue to look for locations to transfer to. . rn :15 03:06 Sotalol 80 mg PO once ordered. rn rn 03:15 02:41 07/14/2020 00:46 Hospitalization Ordered by Pepito Eddy DO for Inpatient rn unit manager. Preliminary diagnosis is Anasarca; Pneumonia, unspecified organism; Unspecified combined systolic (congestive) and diastolic (congestive) heart failure; Persistent atrial fibrillation - With rapid ventricular rate; Hematemesis. Bed requested for Telemetry/MedSurg (Inpatient). Status is Inpatient Admission. Condition is Stable. Problem is new. Symptoms have improved. rn 10:51 03:17 07/14/2020 03:17 Transfer ordered to Other Acute Care Facility. Diagnosis is kdr Anasarca; Hematemesis; Pneumonia, unspecified organism; Unspecified cirrhosis of liver; Persistent atrial fibrillation. Reason for transfer: Higher level of care. Accepting physician is . Condition is Fair. Problem is new. Symptoms are unchanged. rn 10:52 10:51 07/14/2020 03:17 Transfer ordered to Other Acute Care Facility. Diagnosis is kdr Anasarca; Hematemesis; Pneumonia, unspecified organism; Unspecified cirrhosis of liver; Persistent atrial fibrillation. Reason for transfer: Higher level of care. Accepting physician is Dr. Mcknight. Condition is Fair. Problem is new. Symptoms are unchanged. kdr 13:54 10:52 07/14/2020 03:[address] [facility]. dm5 Diagnosis is Anasarca; Hematemesis; Pneumonia, unspecified organism; Unspecified cirrhosis of liver; Persistent atrial fibrillation. Reason for transfer: Higher level of care. Accepting physician is Dr. Mcknight. Condition is Fair. Problem is new. Symptoms are unchanged. kdr
--- NOTE | 2020-07-14 00:47 | ER ---
Nurse's Notes [facility] Name: Clifton Sahu Jr Age: 60 yrs Sex: Male : 1960 Arrival Date: 07/13/2020 Time: 21:34 Bed 5 Private MD: Diagnosis: Anasarca;Hematemesis;Pneumonia, unspecified organism;Unspecified cirrhosis of liver;Persistent atrial fibrillation Presentation: 07/13 21:37 Chief complaint: EMS states: Pt complaining of difficulty breathing, EMS reports they ea were toned out earlier but pt refused to go. Pt reports he has been having difficulty breathing for a while. Coronavirus screen: Client presents with at least one sign or symptom that may indicate coronavirus-19. Provider contacted for isolation considerations. Ebola Screen: No symptoms or risks identified at this time. Initial Sepsis Screen: Does the patient meet any 2 criteria? HR > 90 bpm. Does the patient have a suspected source of infection? No. Patient's initial sepsis screen is negative. Risk Assessment: Do you want to hurt yourself or someone else? Patient reports no desire to harm self or others. Onset of symptoms was July 13, 2020. 21:37 Method Of Arrival: EMS: [facility] ea 21:37 Acuity: MOLLY 3 ea 07/14 07:12 Acuity: MOLLY 2 ph Triage Assessment: 07/13 21:39 General: Appears uncomfortable, Behavior is agitated, anxious. Pain: Denies pain. ea Neuro: Level of Consciousness is awake, alert, obeys commands, Oriented to person, place. Cardiovascular: edema noted to waqas lower extremities . Respiratory: Reports shortness of breath at rest Airway is patent Respiratory effort is labored, Respiratory pattern is tachypnea Onset: The symptoms/episode began/occurred at an unknown time. the patient has moderate shortness of breath. GI: Abdomen is distended. Derm: Skin is cyanotic. Historical: - Allergies: 21:34 No Known Allergies; sg - PMHx: 21:34 Diabetes - NIDDM; Hypertension; sg - Immunization history:: Adult Immunizations not up to date. - Social history:: Smoking status: Patient reports the use of cigarette tobacco products. - Family history:: not pertinent. - Hospitalizations: : No recent hospitalization is reported. Screenin:39 Abuse screen: Denies threats or abuse. Nutritional screening: On. Tuberculosis ea screening: No symptoms or risk factors identified. Fall Risk None identified. Assessment: 22:54 Reassessment: Patient and/or family updated on plan of care and expected duration. Pain ea level reassessed. Respiratory: Airway is patent Respiratory effort is even, labored, Respiratory pattern is symmetrical. Derm: Skin is. 23:30 Reassessment: Patient and/or family updated on plan of care and expected duration. Pain ea level reassessed. Pt alert and oriented, pt not complying with O2 per nasal cannula, redirected to wear O2. Pt tolerating well. 07/14 00:00 Reassessment: Patient and/or family updated on plan of care and expected duration. Pain ea level reassessed. Pt alert and oriented x 3, respirations even and unlabored, pt remains on O2 at 2L per nasal cannula, tolerating well. 01:54 Reassessment: [id number]. sg 02:15 Reassessment: Pt reports nausea, vomited coffee ground emesis. Provider notified. ea Medication order obtained. 03:50 Reassessment: Patient and/or family updated on plan of care and expected duration. Pain ea level reassessed. Pt resting with eyes closed, respirations even and unlabored, chest expansions even and symmetrical. 04:56 Reassessment: Patient and/or family updated on plan of care and expected duration. Pain ea level reassessed. Pt resting with eyes closed, respirations even and unlabored, chest expansions even and symmetrical. Pt reports his nausea has improved. 05:42 Reassessment: Patient and/or family updated on plan of care and expected duration. Pain ea level reassessed. Pt alert and oriented x 3. respirations even and unlabored. Pt reports he is " feeling a little better". Cardiovascular: Rhythm is atrial fibrillation. 08:48 Reassessment: Patient and/or family updated on plan of care and expected duration. Pain tw2 level reassessed. pt requesting his LE to be wrapped, legs wrapped loosely with paper chucks pad, pt states "can you turn the light back off so i can go to sleep". 09:45 Reassessment: Patient and/or family updated on plan of care and expected duration. Pain tw2 level reassessed. 10:45 Reassessment: Patient and/or family updated on plan of care and expected duration. Pain tw2 level reassessed. 11:45 Reassessment: Patient and/or family updated on plan of care and expected duration. Pain tw2 level reassessed. 12:45 Reassessment: Patient and/or family updated on plan of care and expected duration. Pain tw2 level reassessed. 13:50 Reassessment: Patient and/or family updated on plan of care and expected duration. Pain tw2 level reassessed. Vital Signs: 07/13 21:37 BP 135 / 118; Pulse 122; Resp 30; Pulse Ox 92% ; Weight 145.15 kg; Height 5 ft. 11 in. ea (180.34 cm); 22:53 BP 112 / 74; Pulse 66; Resp 18; Temp 98.6; Pulse Ox 96% on R/A; ea 23:55 BP 133 / 97; Pulse 152; Resp 17; Pulse Ox 98% on 2 lpm NC; rv 07/14 01:09 BP 134 / 84; Pulse 147; Resp 14; Pulse Ox 97% on 2 lpm NC; ea 02:00 BP 134 / 84; Pulse 60; Resp 19; Pulse Ox 97% on R/A; ea 03:14 BP 126 / 95; Pulse 146; Resp 18; Pulse Ox 98% ; ea 05:43 BP 101 / 59; Pulse 137; Resp 19; Temp 98.2; Pulse Ox 98% on 2 lpm NC; ea 07:40 Pulse 122; Resp 16; ph 08:48 BP 115 / 50; Pulse 139; Resp 18; Pulse Ox 95% on 2 lpm NC; tw2 09:48 BP 110 / 85; Pulse 130; Resp 19; Pulse Ox 95% on R/A; tw2 10:48 BP 103 / 76; Pulse 122; Resp 19; Pulse Ox 95% on R/A; tw2 12:00 BP 90 / 79; Pulse 134; Resp 15; Pulse Ox 97% on R/A; tw2 07/13 21:37 Body Mass Index 44.63 (145.15 kg, 180.34 cm) ea ED Course: 07/13 21:34 Patient arrived in ED. sg 21:35 Vern Lozoya MD is Attending Physician. rn 21:37 Lilly Mackenzie RN is Primary Nurse. ea 21:39 Triage completed. ea 21:41 Patient has correct armband on for positive identification. Placed in gown. Bed in low ea position. Call light in reach. Side rails up X2. piano refinisher on. Pulse ox on. NIBP on. 21:41 Arm band placed on right wrist. Patient placed in an exam room, on a stretcher, on ea cardiac rn, on pulse oximetry. 22:05 XRAY Chest (1 view) In Process Unspecified. EDMS 22:21 Notified ED physician of a critical lab result(s). lactate 4.7. 07/14 00:43 Pepito Eddy DO is Hospitalizing Provider. rn 01:01 CT Abd/Pelvis - Without Contrast In Process Unspecified. EDMS 02:15 Initiated transfer at [facility] with Aline Cain. Provided pt info and connected tt3 Aline [address] Dr. Lozoya per her request. 02:30 Aline Barlow called back and stated that they had to decline due to ICU capacity at [facility]. 02:41 Initiated transfer at [facility] with Katherine Redmond. Stated she would check beds tt3 and call back. 02:50 Katherine called back and stated that all [facility] campuses are at capacity and tt3 would have to deny the transfer request. 02:52 Tried initiating transfer at [facility] with [place]. Stated they were at ICU capacity and tt3 would have to decline the request. 02:56 Initiated transfer at [facility] with Isaura. Provided information and she checked beds while on tt3 the phone. Stated that all [facility] campuses were at ICU capacity so the request would have to be denied. 03:21 Reached out to [facility] and spoke with Sherrie. She stated there was a long wait list but tt3 still took pt information. 05:13 Spoke with Azalia at [facility] regarding an update. Stated that there were still no tt3 beds available that we could try again around 0800. Information was passed on to Dr. Lozoya. 05:33 Inserted saline lock: 22 gauge in left hand, using aseptic technique. ea 05:34 No provider procedures requiring assistance completed. Patient transferred, IV remains ea in place. 08:33 Attending Physician role handed off by Vern Lozoya MD kdr 08:33 Alvarez Dunn MD is Attending Physician. kdr 08:45 re initiated transfer to er [facility]. bd 11:05 pt accepted in transfer to [facility] ER by dr huffman, admin approval given bd by Tammy March. 12:02 Report given to GRETCHEN Snyder. tw2 12:43 Primary Nurse role handed off by Lilly Mackenzie, RN tw2 12:43 Ashlie Pulliam, RN is Primary Nurse. tw2 Administered Medications: 07/13 21:44 Not Given (Duplicate Order): Nitroglycerin Ointment 2 % 1 inches Transdermal once rn 22:00 Drug: Lasix 60 mg Route: IVP; Site: left antecubital; rv 07/14 00:31 Follow up: Response: No adverse reaction ea 07/13 22:00 Drug: Digoxin 0.25 mg Route: IVP; Site: left antecubital; rv 07/14 00:32 Follow up: Response: No adverse reaction ea 00:34 Drug: Zofran (Ondansetron) 4 mg Route: IVP; Site: left antecubital; ea 01:00 Follow up: Response: No adverse reaction ea 00:36 Drug: LevaQUIN 750 mg Volume: 150 ml; Route: IVPB; Infused Over: 90 mins; Site: left ea antecubital; 02:30 Follow up: Response: No adverse reaction; IV Status: Completed infusion ea 01:07 Drug: Digoxin 0.25 mg Route: IVP; Site: left antecubital; ea 01:30 Follow up: Response: No adverse reaction ea 01:13 Drug: Metoprolol TARTRATE (Lopressor) 50 mg Route: PO; ea 02:30 Follow up: Response: No adverse reaction ea 01:54 Drug: Sotalol 80 mg Route: PO; ea 02:30 Follow up: Response: No adverse reaction ea 01:55 Drug: Phenergan 12.5 mg Route: IVP; Site: left antecubital; ea 02:15 Follow up: Response: No adverse reaction ea 02:11 CANCELLED (Duplicate Order): Heparin ([place]-Bolus with thrombolytic) - HEParin 60 units/kg la1 IVP once; Max 4000 units 02:11 CANCELLED (Duplicate Order): Heparin ([place] Drip) 12 units/kg/hr - (HEParin 44736 units, la1 D5W 500 ml) IV at calculated rate Per protocol; Max initial rate 1000 units/hr 02:28 Drug: ProTONIX 40 mg Route: IVP; Site: left antecubital; ea 04:36 Follow up: Response: No adverse reaction ea 02:31 Drug: ProTONIX 8 mg/hr Route: IV; Rate: 25 ml/hr; Site: left antecubital; ea 05:02 Follow up: Response: No adverse reaction; IV Status: Infusion continued upon transfer ea 03:15 CANCELLED (vomiting): Sotalol 80 mg PO once rn 03:18 Drug: Zofran (Ondansetron) 4 mg Route: IVP; Site: left antecubital; ea 04:36 Follow up: Response: No adverse reaction; Nausea is decreased ea 04:02 Drug: Octreotide Infusion (50 mcg/hr) - (Octreotide 500 mcg, NS 0.9% 500 ml) Route: IV; ea Rate: 50 ml/hr; Site: left antecubital; 04:36 Follow up: IV Status: Completed infusion ea 04:07 Drug: Octreotide 50 mcg Route: IV; Rate: calculated rate; Site: left antecubital; rv 04:36 Follow up: IV Status: Completed infusion ea 04:35 Drug: Lopressor 5 mg Route: IVP; Site: left antecubital; ea 05:02 Follow up: Response: No adverse reaction ea Outcome: 00:46 Decision to Hospitalize by Provider. rn 03:17 ER care complete, transfer ordered by . rn 13:54 Patient left the ED. dm5 Signatures: Dispatcher [employer] EDMS Minna Blancas Deana, RN RN dm5 Ismael Garcia RN RN sg Rittger, Kevin, MD MD kdr Nieto, Roman, MD MD rn Hall, Patricia, RN RN ph Wise, Tara, RN RN tw2 Lilly Mackenzie RN RN ea Vicente, Ronaldo, RN RN rv Angelo Cummings tt3 [facility] Cor[facility]: (The following items were deleted from the chart) 01:55 01 22:53 BP 112 / 74; Pulse 66bpm; Resp 18bpm; Pulse Ox 96% RA; ea ea 07/14 12:00 09:48 BP 90 / 79; Pulse 134bpm; Resp 15bpm; Pulse Ox 97% RA; tw2 tw2
[2020-07-14] MEDS ORDERED: ONDANSETRON 4 MG/2 ML VIAL ONE ×2 (00:57→03:24)
[2020-07-14] MEDS ORDERED: DIGOXIN 0.25 MG/ML AMP ONE (01:15)
[2020-07-14] MEDS ORDERED: METOPROLOL TAR 50 MG TAB ONE (01:28)
[2020-07-14] MEDS ORDERED: SOTALOL HCL 80 MG TAB ONE (02:01)
[2020-07-14] MEDS ORDERED: PROMETHAZINE INJ 25 MG/ML AMP ONE (02:03)
[2020-07-14] MEDS ORDERED: PANTOPRAZOLE 40 MG INJ ONE (02:32)
[2020-07-14] MEDS ORDERED: NA CHLORIDE 0.9% 250 ML ONE ×2 (02:33→03:52)
[2020-07-14] MEDS ORDERED: OCTREOTIDE ACETATE 100 MCG/ML ONE (03:51)
[2020-07-14] MEDS ORDERED: METOPROLOL TARTRATE 5 MG/5 ML INJ IV ONE (04:43)
[2020-07-14] MEDS ORDERED: OCTREOTIDE 500 MCG in NA CHLORIDE 0.9% 500 ML IV SCH (09:00)
[2020-07-14 09:37] LABS: Absolute Lymphocytes (CBC) 0.4 K/uL (0.7-4.9); Basophils % 0.1 % (0-1.3); Hematocrit 48.3 % (39.6-49.0); Lymphocytes % 4.3 % (15.3-44.8); MPV 8.9 fL (7.6-11.3)
[2020-07-14 10:03] LABS: Anisocytosis 1+; Blood Morphology Comment NOTED (NOT SEEN); Platelet Estimate ADEQ; Polychromasia SLIGHT; White Blood Cell Scan OK (OK)
--- NOTE | 2020-07-14 10:57 | RAD REPORT ---
EXAM DESCRIPTION: RAD - Chest Single View - 07/13/2020 10:06 pm CLINICAL HISTORY: DYSPNEA COMPARISON: None. FINDINGS: Single view of the chest is submitted. Cardiac silhouette is markedly enlarged. There is bilateral pulmonary edema and there are consolidati ons in the right lung. There is a right pleural effusion. Detail is limited. There is also more subtle poorly defined consol idation in the left lung. IMPRESSION: Cardiomegaly with pulmonary edema and bilateral consolidations. Electronically signed by: Buddy Ledesma 07/13/2020 10:57 PM REGIONAL DRIVER Due to temporary technical issues with the PACS/Fluency reporting system, reports are being signed by the in house radiologist without review as a courtesy to ensure prompt reporting. The interpreting r adiologist is fully responsible for the content of the report.
--- NOTE | 2020-07-14 11:18 | RAD REPORT ---
EXAM DESCRIPTION: CT - Abdomen Pelvis Wo Contrast - 07/14/2020 6:34 am CLINICAL HISTORY: The patient is 60 years old and is Male; abnormal LFTs, CHF TECHNIQUE: Axial computed tomography images of the abdomen and pelvis without intravenous contrast. Sagittal and coronal reformatted images were created and reviewed. This CT exam was performed usi ng one or more of the following dose reduction techniques: automated exposure control, adjustment o f the mA and/or kV according to patient size, and/or use of iterative reconstruction technique. DLP: 2241 mGy*cm COMPARISON: CT abdomen and pelvis dated February 11, 2020. FINDINGS: LUNG BASES: See below. PLEURAL SPACE: Small right pleural effusion/atelectasis. Adjacent consolidation cannot be excluded . HEART: Mild cardiomegaly. ABDOMEN: LIVER: Mild hepatic cirrhosis. GALLBLADDER AND BILE DUCTS: Unremarkable. No calcified stones. No ductal dilation. PANCREAS: Unremarkable. No ductal dilation. SPLEEN: Multiple splenic granulomas. ADRENALS: Unremarkable. No mass. KIDNEYS AND URETERS: Nonobstructive bilateral renal stones. STOMACH AND BOWEL: Unremarkable. No obstruction. No mucosal thickening. PELVIS: APPENDIX: No findings to suggest acute appendicitis. BLADDER: Unremarkable. No stones. REPRODUCTIVE: Unremarkable as visualized. ABDOMEN and PELVIS: INTRAPERITONEAL SPACE: Moderate abdominal and pelvic ascites. No free air. BONES/JOINTS: Diffuse osteopenia. Lower lumbar degenerative changes. No acute fracture. No di slocation. SOFT TISSUES: Diffuse soft tissue anasarca. VASCULATURE: Vascular calcifications. No abdominal aortic aneurysm. LYMPH NODES: Unremarkable. No enlarged lymph nodes. IMPRESSION: 1. No acute abdominal or pelvic abnormality. 2. Mild hepatic cirrhosis. Moderate abdominal and pelvic ascites. 3. Small right pleural effusion/atelectasis. Adjacent consolidation cannot be excluded. 4. Nonobstructive bilateral renal stones. 5. Prior granulomatous disease. Electronically signed by: Beto Gil DO 07/14/2020 1:19 AM SITE DIRECTOR Due to temporary technical issues with the PACS/Fluency reporting system, reports are being signed by the in house radiologist without review as a courtesy to ensure prompt reporting. The interpreting r adiologist is fully responsible for the content of the report.
[2020-07-14] MEDS ORDERED: PANTOPRAZOLE INJ 80 MG in NA CHLORIDE 0.9% 250 ML IV SCH (12:15)
[2020-07-14 14:25] VITALS: TEMP 98.2
[2020-07-14 14:35] VITALS: BP 90/79; O2SAT 97
--- NOTE | 2020-07-14 17:32 | EKG ---
Test Date: 2020-07-13 Test Time: 21:35:48 Grocery Store Manager: RV MEASUREMENT RESULTS: Intervals: Rate: 160 [place]: QRSD: 94 QT: 288 QTc: 469 [place]: P: W[place]: QRS: 125 T: -31 INTERPRETIVE STATEMENTS: Atrial fibrillation with rapid ventricular response with premature ventricular or aberrantly conducted complexes Right axis deviation Low voltage QRS Cannot rule out Anterior infarct, age undetermined Abnormal ECG Compared to ECG 02/11/2020 10:09:41 Ventricular premature complex(es) now present Right-axis deviation now present Sinus tachycardia no longer present Myocardial infarct finding still present Electronically Signed On 07-14-20 17:31:41 RADIO EQUIPMENT INSTALLER by Rufus Redd
== END 2020-07-14 13:54 | disposition short-term general hospital (02) ==
LOC: ER 21:33
DX: J18.9 Pneumonia, unspecified organism (principal); Z20.822 Contact with and (suspected) exposure to COVID-19; R60.1 Generalized edema; K92.0 Hematemesis; I48.19 Other persistent atrial fibrillation; K74.60 Unspecified cirrhosis of liver; I10 Essential (primary) hypertension; F17.210 Nicotine dependence, cigarettes, uncomplicated
CPT/HCPCS: 0240U; 36415; 71045; 74176; 80048; 80076; 82805; 83605; 83880; 84145; 84484; 85025; 86140; 87040; 93005; 94660; 96365; 96366; 96367; 96368; 96375; 99284; C9113; J1160; J2354; J2405; J2550; J7040; J7050